=== PATIENT | female | born 1960 | race African-American/Black ===

== ENCOUNTER → 2019-12-23 13:25 | Outpatient (BNV) | payer OTHER, SELFPAY | PROVIDERS: PCP Internal Medicine; Visit Provider Internal Medicine | DX: C90.01 Multiple myeloma in remission (principal); Z92.21 Personal history of antineoplastic chemotherapy; M81.0 Age-related osteoporosis without current pathological fracture | CPT/HCPCS: 99212; 99213; 99214; G2211 ==

== ENCOUNTER 2020-01-21 06:31 | Outpatient (REF) | payer OTHER, SELFPAY ==
[2020-01-21 07:03] LABS: MANUAL DIFF FLAG NO
[2020-01-21 07:07] LABS: Basophils Absolute Auto 0.1 X10*3/uL (0.0-0.2); Basophils Percent Auto 1.7 % (0-2); Eosinophils Absolute Auto 0.2 X10*3/uL (0.0-0.4); Eosinophils Percent Auto 4.7 % (0-4); Hematocrit 35.4 % (37-47); Hemoglobin 11.3 g/dl (12.0-16.0); Imm Gran Abs Auto 0.01 X10*3/uL (0.00-0.03); Imm Gran Pct Auto 0.2 % (0.0-0.4); Immature Retic Fraction 12.5 % (3.0-15.9); Lymphocytes Absolute Auto 1.1 X10*3/uL (1.2-4.9); Lymphocytes Percent Auto 28.4 % (20-40); Mean Corpuscular HGB Conc 31.9 g/dl (31.0-35.0); Mean Corpuscular Hemoglobin 28.5 pg (27.0-33.0); Mean Corpuscular Volume 89.4 fL (80-98); Mean Platelet Volume 9.5 fL (9.4-12.3); Monocytes Absolute Auto 0.5 X10*3/uL (0.1-1.2); Monocytes Percent Auto 13.4 % (2-11); Neutrophils Absolute Auto 2.1 X10*3/uL (2.0-8.3); Neutrophils Percent Auto 51.6 % (45-73); Platelet Count 164 X10*3/uL (160-400); Red Blood Count 3.96 X10*6/uL (4.20-5.50); Red Cell Distribution Width 14.2 % (11.0-16.0); Retic HGB Equivalent 34.3 pg (30.0-35.0); Reticulocyte Percent 1.5 % (0.5-1.8); Reticulocytes Absolute 0.057 X10*6/uL (0.026-0.095)
[2020-01-21 07:31] LABS: Glucose Urine UA NEG (NEG); Leukocyte Esterase Urine NEG (NEG); Nitrite Urine NEG (NEG); Specific Gravity - Urine 1.025 (1.005-1.025); Urine Blood NEG (NEG); Urine Ketones NEG (NEG); Urine Protein NEG (NEG-TRACE)
[2020-01-21 07:34] LABS: Alanine Aminotransferase 16 U/L (0-31); Albumin Level 3.6 g/dL (3.5-5.0); Alkaline Phosphatase 77 U/L (39-117); Anion Gap 11 (12-20); Aspartate Amino Transferase 13 U/L (5-31); Bilirubin Total 0.6 mg/dL (0.0-1.0); Blood Urea Nitrogen 9 mg/dL (9-16); Calcium 8.2 mg/dL (8.4-10.2); Carbon Dioxide 28 mmol/L (22-29); Chloride 110 mmol/L (96-108); Cholesterol 130 mg/dL; Estimated Glomerular Filt Rate > 60; Glucose Random 87 mg/dL (60-115); HDL Cholesterol 61 mg/dL; Iron 41 mcg/dL (30-160); LDL Cholesterol Calculated 59 mg/dl; Percent Iron Saturation 14 % (15-50); Potassium 3.9 mmol/l (3.3-5.1); Sodium 145 mmol/L (135-145); Total Iron Binding Capacity 292 mcg/dL (228-428); Total Protein 6.3 g/dL (6.5-8.0); Triglycerides 52 mg/dL; Unsaturated Iron Binding 251 ug/dL
[2020-01-21 07:34] LABS: Appearance Urine CLEAR; Color Urine YELLOW
[2020-01-21 07:42] LABS: RBC Urine 0 /HPF (0); Renal Epithelial Cells Urine TRACE /LPF; Squamous Epithelial Cell Urine 1+ /LPF; WBC Urine 0 /HPF (0-4)
[2020-01-21 07:54] LABS: Ferritin 103 ng/mL (10-250); Thyroid Stimulating Hormone 1.27 mIU/mL (0.32-4.0)
[2020-01-21 08:34] LABS: Creatinine Urine 130.22 mg/dL; Microalbumin Urine < 5.0 mg/L
[2020-01-21 10:03] LABS: Folate 8.9 ng/mL (> or = 4.0); Vitamin B12 287 pg/mL (200-900)
== END 2020-01-21 06:32 | disposition home or self-care (01) ==
LOC: HO.LAB 06:31
PROVIDERS: Visit Provider Internal Medicine
DX: E11.65 Type 2 diabetes mellitus with hyperglycemia (principal); I10 Essential (primary) hypertension; D64.9 Anemia, unspecified; E78.00 Pure hypercholesterolemia, unspecified
CPT/HCPCS: 36415; 80053; 80061; 81001; 82043; 82607; 82728; 82746; 83540; 84443; 85025; 85045

== ENCOUNTER 2020-07-01 11:07 | Outpatient (REF) | payer OTHER, SELFPAY ==
--- NOTE | ~2020-07-01 | MM_ITS ---
EXAMINATION: MM SCREENING DIGITAL BREAST TOMOSYNTHESIS, BILATERAL CLINICAL INFORMATION: Screening. Asymptomatic. Remote history reduction mammoplasty, 2007. The lifetime risk of breast cancer based on the Tyrer-Cuzick Model is 4%. COMPARISON: Mammography: 04/03/2019, 03/28/2018, 02/15/2017, 01/21/2016, 04/07/2015, 03/05/2014 TECHNIQUE: Digital breast tomosynthesis is performed in both the craniocaudal and mediolateral oblique views along with computer-aided detection (CAD). Synthesized 2D images are generated from the tomosynthesis. Additional exaggerated right CC view is provided. FINDINGS: There are scattered areas of fibroglandular density (ACR BI-RADS breast composition Category b). Parenchymal pattern is similar to prior studies. There is minor bilateral scarring consistent with the reduction mammoplasty. Shifting fibroglandular densities are again noted from year to year. There is no interval mass or architectural abnormality. No abnormal calcifications. No significant changes. MM/MM tomosynthesis screening BI IMPRESSION: No significant changes from prior studies. ASSESSMENT: BI-RADS 2: Benign RECOMMENDATION: Routine annual mammography screening. This patient's information was entered into a reminder system with a target due date for their next mammogram.
== END 2020-07-01 11:08 | disposition home or self-care (01) ==
LOC: HO.MAMMO 11:07
PROVIDERS: PCP Internal Medicine; Visit Provider Internal Medicine
DX: Z12.31 Encounter for screening mammogram for malignant neoplasm of breast (principal)
CPT/HCPCS: 77063; 77067

== ENCOUNTER 2020-10-05 08:00 | Outpatient (REF) | payer OTHER, SELFPAY | END 2020-10-05 08:01 | disposition home or self-care (01) | LOC: HO.LAB 08:00 | PROVIDERS: PCP Internal Medicine; Visit Provider Internal Medicine | DX: Z13.89 Encounter for screening for other disorder (principal) ==

== ENCOUNTER 2021-03-16 06:25 | Outpatient (REF) | payer OTHER, SELFPAY ==
[2021-03-16 06:44] LABS: MANUAL DIFF FLAG NO
[2021-03-16 07:06] LABS: Basophils Percent Auto 0.8 % (0-2); Eosinophils Absolute Auto 0.3 X10*3/uL (0.0-0.4); Eosinophils Percent Auto 6.5 % (0-4); Hematocrit 38.9 % (37.0-47.0); Hemoglobin 12.3 g/dl (12.0-16.0); Imm Gran Abs Auto 0.01 X10*3/uL (0.00-0.03); Imm Gran Pct Auto 0.3 % (0.0-0.4); Immature Retic Fraction 13.8 % (3.0-15.9); Lymphocytes Absolute Auto 0.8 X10*3/uL (1.2-4.9); Lymphocytes Percent Auto 20.1 % (20-40); Mean Corpuscular HGB Conc 31.6 g/dl (31.0-35.0); Mean Corpuscular Hemoglobin 28.5 pg (27.0-33.0); Mean Corpuscular Volume 90.3 fL (80.0-98.0); Mean Platelet Volume 9.4 fL (9.4-12.3); Monocytes Absolute Auto 0.7 X10*3/uL (0.1-1.2); Monocytes Percent Auto 17.2 % (2-11); Neutrophils Absolute Auto 2.1 x10*3/uL (2.0-8.3); Neutrophils Percent Auto 55.1 % (45-73); Platelet Count 223 X10*3/uL (160-400); Red Blood Count 4.31 X10*6/uL (4.20-5.50); Red Cell Distribution Width 13.8 % (11.0-16.0); Retic HGB Equivalent 33.4 pg (30.0-35.0); Reticulocytes Absolute 0.043 X10*6/uL (0.026-0.095); White Blood Count 3.8 X10*3/uL (4.8-10.8)
[2021-03-16 07:29] LABS: Alanine Aminotransferase 35 U/L (0-31); Albumin Level 3.8 g/dL (3.5-5.0); Alkaline Phosphatase 83 U/L (39-117); Anion Gap 10 (12-20); Aspartate Amino Transferase 21 U/L (5-31); Bilirubin Total 0.5 mg/dL (0.0-1.0); Blood Urea Nitrogen 11 mg/dL (9-16); Calcium 9.3 mg/dL (8.4-10.2); Carbon Dioxide 29 mmol/L (22-29); Chloride 110 mmol/L (96-108); Cholesterol 148 mg/dL; Estimated Glomerular Filt Rate > 60; Glucose Random 90 mg/dL (60-115); HDL Cholesterol 69 mg/dL; Iron 56 mcg/dL (30-160); LDL Cholesterol Calculated 67 mg/dl; Percent Iron Saturation 16 % (15-50); Potassium 4.4 mmol/L (3.3-5.1); Sodium 145 mmol/L (135-145); Total Iron Binding Capacity 345 mcg/dL (228-428); Total Protein 7.1 g/dL (6.5-8.0); Triglycerides 60 mg/dL; Unsaturated Iron Binding 289 ug/dL
[2021-03-16 07:51] LABS: Ferritin 88 ng/mL (10-250); Free T4 (Free Thyroxine) 0.89 ng/dL (0.71-1.85); Thyroid Stimulating Hormone 1.25 uIU/mL (0.32-4.0); Vitamin D 25-OH Total 15.4 ng/mL (>30)
[2021-03-16 08:05] LABS: Creatinine Urine 113.65 mg/dL; Microalbum/Creatinine Ratio Ur 6.1 ug/mg cr
[2021-03-16 08:11] LABS: Folate 13.1 ng/mL (> or = 4.0); Vitamin B12 337 pg/mL (200-900)
== END 2021-03-16 06:26 | disposition home or self-care (01) ==
LOC: HO.LAB 06:25
PROVIDERS: PCP Internal Medicine; Visit Provider Internal Medicine
DX: E11.65 Type 2 diabetes mellitus with hyperglycemia (principal); E78.00 Pure hypercholesterolemia, unspecified; D64.9 Anemia, unspecified; M81.8 Other osteoporosis without current pathological fracture
CPT/HCPCS: 36415; 80053; 80061; 82043; 82306; 82607; 82728; 82746; 83540; 84439; 84443; 85025; 85045

== ENCOUNTER 2021-07-06 08:45 | Outpatient (REF) | payer OTHER, SELFPAY ==
--- NOTE | ~2021-07-06 | MM_ITS ---
EXAMINATION: MM SCREENING DIGITAL BREAST TOMOSYNTHESIS, BILATERAL CLINICAL INFORMATION: Screening. Asymptomatic. The lifetime risk of breast cancer based on the Tyrer-Cuzick Model is 8%. COMPARISON: Mammography: 07/01/2020, 04/03/2019, 03/28/2018 TECHNIQUE: Digital breast tomosynthesis is performed in both the craniocaudal and mediolateral oblique views along with computer-aided detection (CAD). Synthesized 2D images are generated from the tomosynthesis. Additional right exaggerated CC and left MLO views are provided. FINDINGS: There are scattered areas of fibroglandular density (ACR BI-RADS breast composition Category b). There are no significant masses, abnormal calcifications, or other abnormalities. There is biopsy clip marker again seen posterior central 8:30 right breast. There are scattered bilateral vascular and benign round and some coarse calcifications. The axilla are unremarkable. No significant changes from prior studies. MM/MM tomosynthesis screening BI IMPRESSION: No mammographic evidence of malignancy. ASSESSMENT: BI-RADS 2: Benign RECOMMENDATION: Routine annual mammography screening. This patient's information was entered into a reminder system with a target due date for their next mammogram.
== END 2021-07-06 08:46 | disposition home or self-care (01) ==
LOC: HO.MAMMO 08:45
PROVIDERS: PCP Internal Medicine; Visit Provider Internal Medicine
DX: Z12.31 Encounter for screening mammogram for malignant neoplasm of breast (principal)
CPT/HCPCS: 77063; 77067

== ENCOUNTER 2021-09-21 08:35 | Outpatient (REF) | payer OTHER, SELFPAY ==
--- NOTE | ~2021-09-21 | MM_ITS ---
EXAMINATION: BONE DENSITOMETRY CLINICAL INDICATION: Age-related osteoporosis without current pathological fracture. COMPARISON: Previous BD dated 09/04/2019 and baseline BD dated 03/24/2014. TECHNIQUE: Using a [employer] DXA System (software version: 13.1) manufactured by [employer], dual-energy x-ray absorptiometry was performed of the lumbar spine and left hip. The images are of good technical quality. Summary results are attached. FINDINGS: AP SPINE L1-L4: Current: BMD 0.859 g/cm2, Z-score -1.9, T-score -2.7, osteoporosis, 2.8% increase from previous, 13.3% increase from baseline (<5% change is not significant). Prior: BMD 0.836 g/cm2. Baseline: BMD 0.758 g/cm2. LEFT FEMUR, NECK: Current: BMD 0.667 g/cm2, Z-score -2.1, T-score -2.7, osteoporosis. Prior: BMD 0.706 g/cm2. Baseline: BMD 0.632 g/cm2. LEFT FEMUR, TOTAL: Current: BMD 0.690 g/cm2, Z-score -2.4, T-score -2.5, osteoporosis, 1.4% decrease from previous, 8.3% increase from baseline (<5% change is not significant). Prior: BMD 0.700 g/cm2. Baseline: BMD 0.637 g/cm2. IDENTIFIED RISK FACTORS: Early menopause, secondary osteoporosis, height loss, low calcium intake, osteoporosis, glucocorticoids (chronic). HISTORY OF FRACTURE: None listed. MEDICATIONS: Calcium supplements or multivitamin, vitamin D. MM/XR DEXA axial skeleton IMPRESSION: 1. DIAGNOSIS: Osteoporosis based on the lowest T-score value of -2.7 in the femoral neck and lumbar spine applying World Health Organization criteria. 2. 10-YEAR FRACTURE RISK PREDICTION, FRAX: According to the guidelines, FRAX calculation should only be performed on patients in the osteopenia bone density category. Therefore, FRAX was not performed on this patient. 3. Treatment Recommendations: NOF guidelines recommend consideration for treatment in postmenopausal women and men age 50 and older presenting with the following: -A hip or vertebral (clinical or morphometric) fracture. -T-score less than or equal to -2.5 at the femoral neck or spine after appropriate evaluation to exclude secondary causes. -Low bone mass at the hip or spine and a 10-year fracture probability by FRAX of greater than or equal to 3% for hip fracture or greater than or equal to 20% for major osteoporotic fracture based on the [place] adapted WHO algorithm. 4. Other Recommendations: All treatment decisions require clinical judgment and consideration of individual patient factors, including patient preferences, comorbidities, previous drug use, risk factors not captured in the FRAX model (e.g. frailty, falls, vitamin D deficiency, increased bone turnover, interval significant decline in bone density) and possible under or overestimation of fracture risk by FRAX. Additional medical evaluation for secondary cause of low bone mineral density may be appropriate. FUTURE SCAN RECOMMENDATION: People with diagnosed cases of osteoporosis or at high risk for fracture should have regular bone mineral density tests. For patients eligible for Medicare, routine testing is allowed once every 2 years. The testing frequency can be increased to one year for patients who have rapidly progressing disease, those who are receiving or discontinuing medical therapy to restore bone mass, or have additional risk factors.
== END 2021-09-21 08:36 | disposition home or self-care (01) ==
LOC: HO.MAMMO 08:35
PROVIDERS: PCP Internal Medicine; Visit Provider Internal Medicine
DX: M81.8 Other osteoporosis without current pathological fracture (principal); Z79.52 Long term (current) use of systemic steroids
CPT/HCPCS: 77080

== ENCOUNTER 2022-01-10 13:54 | Outpatient (REF) | payer OTHER, SELFPAY ==
--- NOTE | ~2022-01-10 | CT_ITS ---
EXAMINATION: CT LUMBAR SPINE WITHOUT CONTRAST CLINICAL INFORMATION: Back pain. Osteoporosis and reported multiple myeloma. COMPARISON: None TECHNIQUE: Multidetector helical imaging acquired in the axial plane with generation of reformatted acquisitions. This CT examination was performed using dose optimization techniques as appropriate, variously including the following: *Automated exposure control *Adjustment of mA and/or kV according to patient size (this includes techniques or standardized protocols for targeted exams where dose is matched to indication/reason for exam; i.e. extremities or head) *Use of iterative reconstruction technique DLP; 297.4 mGy-cm FINDINGS: There is transitional anatomy with small segmented transverse processes at what is considered the L1 level. The S1 vertebra is lumbarized with a developed S1-S2 disc space. No suspicious lytic or blastic osseous lesions are seen. Extensive bony demineralization evident. There is hypertrophic facet arthropathy at various levels, most severe on the right side at the L5-S1 level with vacuum phenomenon. Mild multilevel endplate spurring noted. There are no compression fractures. No subluxations evident. No significant disc space narrowing is seen. There is a punctate nonobstructing calculus in the right kidney. The paraspinal soft tissues are unremarkable. Sigmoid colonic diverticulosis noted. There is vacuum phenomenon and mild degenerative changes of the sacroiliac joints bilaterally. L1-L2: No significant disc pathology, central canal stenosis, or foraminal narrowing. L2-L3: Very mild disc bulge without central canal stenosis or foraminal encroachment. L3-L4: Mild endplate spurring and disc bulge without central canal stenosis or foraminal encroachment. L4-L5: Generalized disc bulge and thickening of the ligamentum flavum with mild facet arthropathy contributing to mild central canal stenosis and mild bilateral foraminal encroachment. L5-S1: Mild diffuse disc bulge and severe right-sided facet arthropathy with thickening of the ligamentum flavum contributing to moderate central canal stenosis and mild bilateral foraminal narrowing. S1-S2: No significant disc pathology or central canal stenosis. Mild facet arthrosis. Patent foramina. CT/CT lumbar spine wo IV con IMPRESSION: Transitional anatomy with segmented transverse processes and lumbarization of the S1 vertebra with a developed S1-S2 disc space. If future surgery or a percutaneous procedure is contemplated, recommend correlation with plain film evaluation in order to ensure correct enumeration. No suspicious lytic or blastic osseous lesions. Diffuse bony demineralization. No compression fractures. Multilevel spondylitic changes, most significant at the L5-S1 level with severe right-sided facet arthropathy and a disc bulge in conjunction with thickening of the ligamentum flavum. Findings result in moderate central canal stenosis and mild foraminal narrowing. Mild central canal stenosis and disc bulge at the L4-L5 level with mild bilateral foraminal narrowing. Sigmoid colonic diverticulosis.
--- NOTE | ~2022-01-10 | CT_ITS ---
EXAMINATION: CT HIP WITHOUT CONTRAST, RIGHT CLINICAL INFORMATION: Osteoporosis. Multiple myeloma. COMPARISON: None TECHNIQUE: Axial images through the right hip without contrast. Sagittal and coronal reconstructions on the technologist workstation were performed. This CT examination was performed using dose optimization techniques as appropriate, variously including the following: *Automated exposure control *Adjustment of mA and/or kV according to patient size (this includes techniques or standardized protocols for targeted exams where dose is matched to indication/reason for exam; i.e. extremities or head) *Use of iterative reconstruction technique DLP: 130 mGy-cm FINDINGS: There is an old healed fracture of the right inferior pubic ramus. No acute fracture or dislocation is seen. No lytic bone lesion is seen. The right hip joint is normal appearing. There is no evidence of appreciable arthritis or joint effusion. There is evidence of atherosclerotic disease. There is diverticulosis of the colon. No right groin hernia. CT/CT hip RT wo IV con IMPRESSION: Old healed right inferior pubic ramus fracture. No acute fracture or lytic bone lesion. Atherosclerotic disease. Diverticulosis.
== END 2022-01-10 13:55 | disposition home or self-care (01) ==
LOC: HO.CT 13:54
PROVIDERS: PCP Internal Medicine; Visit Provider Internal Medicine
DX: C90.00 Multiple myeloma not having achieved remission (principal); M54.50 Low back pain, unspecified; M25.551 Pain in right hip
CPT/HCPCS: 72131; 73700

== ENCOUNTER 2022-03-03 08:56 | Outpatient (REF) | payer OTHER, SELFPAY ==
[2022-03-03 09:11] LABS: MANUAL DIFF FLAG NO
[2022-03-03 10:04] LABS: Basophils Percent Auto 0.2 % (0-2); Eosinophils Absolute Auto 0.2 X10*3/uL (0.0-0.4); Eosinophils Percent Auto 3.7 % (0-4); Hematocrit 38.8 % (37.0-47.0); Hemoglobin 12.6 g/dl (12.0-16.0); Imm Gran Abs Auto 0.03 X10*3/uL (0.00-0.03); Imm Gran Pct Auto 0.5 % (0.0-0.4); Lymphocytes Percent Auto 17.8 % (20-40); Mean Corpuscular HGB Conc 32.5 g/dl (31.0-35.0); Mean Corpuscular Hemoglobin 28.3 pg (27.0-33.0); Mean Corpuscular Volume 87.2 fL (80.0-98.0); Mean Platelet Volume 10.4 fL (9.4-12.3); Monocytes Absolute Auto 0.9 X10*3/uL (0.1-1.2); Monocytes Percent Auto 15.7 % (2-11); Neutrophils Absolute Auto 3.5 x10*3/uL (2.0-8.3); Neutrophils Percent Auto 62.1 % (45-73); Platelet Count 276 X10*3/uL (160-400); Red Blood Count 4.45 X10*6/uL (4.20-5.50); Red Cell Distribution Width 13.7 % (11.0-16.0); White Blood Count 5.6 X10*3/uL (4.8-10.8)
[2022-03-03 10:12] LABS: Estimated Average Glucose 103 mg/dL; Hemoglobin A1c % 5.2 %
[2022-03-03 10:29] LABS: Creatinine Urine 232.68 mg/dL; Microalbum/Creatinine Ratio Ur 8.1 ug/mg cr
[2022-03-03 14:32] LABS: Alanine Aminotransferase 24 U/L (0-31); Albumin Level 3.8 g/dL (3.5-5.0); Alkaline Phosphatase 79 U/L (39-117); Anion Gap 14 (12-20); Aspartate Amino Transferase 14 U/L (5-31); Bilirubin Total 0.7 mg/dL (0.0-1.0); Blood Urea Nitrogen 9 mg/dL (9-16); Calcium 8.6 mg/dL (8.4-10.2); Carbon Dioxide 25 mmol/L (22-29); Chloride 105 mmol/L (96-108); Cholesterol 143 mg/dL; Estimated Glomerular Filt Rate > 60; Glucose Random 95 mg/dL (60-115); HDL Cholesterol 46 mg/dL; LDL Cholesterol Calculated 80 mg/dl; Potassium 3.5 mmol/L (3.3-5.1); Sodium 140 mmol/L (135-145); Thyroid Stimulating Hormone 0.43 uIU/mL (0.32-4.0); Triglycerides 86 mg/dL
[2022-03-03 14:53] LABS: Vitamin B12 487 pg/mL (200-900)
[2022-03-03 14:56] LABS: Free T4 (Free Thyroxine) 1.36 ng/dL (0.71-1.85); Vitamin D 25-OH Total 35.4 ng/mL (>30)
[2022-03-03 15:08] LABS: Folate 10.7 ng/mL (> or = 4.0)
== END 2022-03-03 08:57 | disposition home or self-care (01) ==
LOC: HO.LAB 08:56
PROVIDERS: PCP Internal Medicine; Visit Provider Internal Medicine
DX: I10 Essential (primary) hypertension (principal); E78.00 Pure hypercholesterolemia, unspecified; E11.65 Type 2 diabetes mellitus with hyperglycemia
CPT/HCPCS: 36415; 80053; 80061; 82043; 82306; 82607; 82746; 83036; 84439; 84443; 85025

== ENCOUNTER 2022-08-01 08:51 | Outpatient (REF) | payer OTHER, SELFPAY ==
--- NOTE | ~2022-08-01 | MM_ITS ---
EXAMINATION: MM SCREENING DIGITAL BREAST TOMOSYNTHESIS, BILATERAL CLINICAL INFORMATION: Screening. Asymptomatic. The lifetime risk of breast cancer based on the Tyrer-Cuzick Model is 7%. COMPARISON: Mammography: 07/06/2021, 07/03/2020, 04/03/2019, 03/28/2018 TECHNIQUE: Digital breast tomosynthesis is performed in both the craniocaudal and mediolateral oblique views along with computer-aided detection (CAD). Synthesized 2D images are generated from the tomosynthesis. FINDINGS: There are scattered areas of fibroglandular density (ACR BI-RADS breast composition Category b). There are no significant masses, abnormal calcifications, or other abnormalities. No architectural abnormality or developing density or significant change from prior studies. Biopsy clip marker again noted posterior central 8:30 right breast. The axilla and skin contours are unremarkable. MM/MM tomosynthesis screening BI IMPRESSION: No mammographic evidence of malignancy. ASSESSMENT: BI-RADS 1: Negative RECOMMENDATION: Routine annual mammography screening. This patient's information was entered into a reminder system with a target due date for their next mammogram.
== END 2022-08-01 08:52 | disposition home or self-care (01) ==
LOC: HO.MAMMO 08:51
PROVIDERS: PCP Internal Medicine; Visit Provider Internal Medicine
DX: Z12.31 Encounter for screening mammogram for malignant neoplasm of breast (principal)
CPT/HCPCS: 77063; 77067

== ENCOUNTER 2022-08-29 10:00 | Outpatient (RCR) | payer OTHER, SELFPAY ==
--- NOTE | 2022-07-25 13:00 | MHC.PT.EP ---
[facility] [place] Office [place] Office [place] Office [address] Regina Soliman [address] [phone] F: [phone] F: [phone] F: [phone] F: [phone] Physical Therapy Plan of Care Date of Evaluation: Date of Surgery: N/A Diagnosis: hip/lower back pain Assessment: Pt is a pleasant and motivated 61yo F with PMH including multiple myeloma who presents to PT with R hip and back pain for ~1 year. She presents to PT with current impairments in pain, decreased lumbar ROM, decreased core stabilization, decreased hip/glute strength, and impaired gait. She is TTP with reproduction of symptoms with palpation to R lumbar PS, QL, and lateral R hip. She is limited functionally by prolonged sitting, prolonged standing, bending, prolonged walking, and stair navigation. She is an excellent candidate for skilled PT in order to address current impairments to facilitate return to PLOF. She is recommended to be seen 2x/week for 4 weeks and will be reassessed at that time. Frequency and Duration: The patient will be seen 2x/week for 4 weeks Short Term Goals: Pt will be I with HEP to promote self management of symptoms Pt will improve R glute med strength to at least 4-/5 Mcc Goals: Pt will tolerate standing and walking > 30 min with minimal to no discomfort Pt will ascend/descend stairs with reciprocal pattern consistently with minimal to no discomfort Pt will demonstrate improvements in function as evidenced by statistically significant improvement in LEFI outcome measure Treatment Plan: Modalities to reduce pain, spasms and effusion. Manual therapy to restore motion and function. Therapeutic exercise to improve strength and flexibility. Neuromuscular re-education for posture and balance. Therapeutic activities to return to functional activities of daily living. Electronically signed by: Nazia Boggs, PT, DPT Please sign and return to therapist. Thank you for your referral.
--- NOTE | 2022-10-10 14:27 | MHC.PT.DC ---
[facility] [place] Office [place] Office [place] Office [address] Regina Soliman [address] [phone] F: [phone] F: [phone] F: [phone] F: [phone] Physical Therapy Discharge Report Diagnosis: hip/lower back pain Date of Surgery: N/A Date of Evaluation: 07/25/22 Date of Discharge: 10/10/22 Treatments to Date: 9 Cancellations to Date: 3 No Shows to Date: Discharge Status: Patient Elected to Stop Discharge Summary: Pt was seen for PT from 07/25/22-08/29/22. Her last attended appointment was 08/29/22. 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 Pt is being D/C from skilled PT per her request. Pt current level of function unknown at this time. Electronically signed by: Nazia Boggs, PT, DPT Please sign and return to therapist. Thank you for your referral.
== END 2022-10-10 14:27 | disposition home or self-care (01) ==
LOC: HO.PT 10:00
PROVIDERS: PCP Internal Medicine; Visit Provider Internal Medicine
DX: M54.50 Low back pain, unspecified (principal); M25.551 Pain in right hip
CPT/HCPCS: 97110; 97140; 97162

== ENCOUNTER 2022-09-15 11:18 | Outpatient (REF) | payer OTHER, SELFPAY ==
[2022-09-15 11:29] LABS: MANUAL DIFF FLAG NO
[2022-09-15 11:59] LABS: Basophils Percent Auto 0.6 % (0-2); Eosinophils Absolute Auto 0.3 X10*3/uL (0.0-0.4); Eosinophils Percent Auto 8.3 % (0-4); Hematocrit 39.1 % (37.0-47.0); Hemoglobin 12.6 g/dl (12.0-16.0); Imm Gran Abs Auto 0.01 X10*3/uL (0.00-0.03); Imm Gran Pct Auto 0.3 % (0.0-0.4); Lymphocytes Absolute Auto 0.8 X10*3/uL (1.2-4.9); Lymphocytes Percent Auto 26.6 % (20-40); Mean Corpuscular HGB Conc 32.2 g/dl (31.0-35.0); Mean Corpuscular Hemoglobin 29.3 pg (27.0-33.0); Mean Corpuscular Volume 90.9 fL (80.0-98.0); Mean Platelet Volume 10.1 fL (9.4-12.3); Monocytes Absolute Auto 0.3 X10*3/uL (0.1-1.2); Monocytes Percent Auto 9.6 % (2-11); Neutrophils Absolute Auto 1.7 x10*3/uL (2.0-8.3); Neutrophils Percent Auto 54.6 % (45-73); Platelet Count 238 X10*3/uL (160-400); Red Cell Distribution Width 13.9 % (11.0-16.0); White Blood Count 3.1 X10*3/uL (4.8-10.8)
[2022-09-15 12:38] LABS: Appearance Urine Clear; Color Urine Yellow; Glucose Urine UA Negative (Negative); Leukocyte Esterase Urine Trace (Negative); Nitrite Urine Negative (Negative); PH 7.5 (5.0-9.0); UMIC TRIGGER UA YES; Urine Blood Negative (Negative); Urine Ketones Negative (Negative); Urine Protein Negative (Neg-Trace)
[2022-09-15 12:42] LABS: Bacteria Urine None Seen (None Seen); Hyaline Casts Urine 0-2 /LPF (0-2); RBC Urine 0-2 /HPF (0-2); Squamous Epithelial Cell Urine 0-2 /HPF (0-2); WBC Urine 0-5 /HPF (0-5)
[2022-09-15 12:46] LABS: Alanine Aminotransferase 42 U/L (0-31); Albumin Level 3.8 g/dL (3.5-5.0); Alkaline Phosphatase 72 U/L (39-117); Anion Gap 12 (12-20); Aspartate Amino Transferase 27 U/L (5-31); Bilirubin Total 0.5 mg/dL (0.0-1.0); Blood Urea Nitrogen 12 mg/dL (9-16); Calcium 9.3 mg/dL (8.4-10.2); Carbon Dioxide 28 mmol/L (22-29); Chloride 108 mmol/L (96-108); Estimated Glomerular Filt Rate > 60; Glucose Random 81 mg/dL (60-115); Magnesium 1.8 mg/dL (1.6-2.6); Potassium 4.4 mmol/L (3.3-5.1); Sodium 144 mmol/L (135-145); Total Protein 7.1 g/dL (6.5-8.0)
[2022-09-15 12:53] LABS: Free T4 (Free Thyroxine) 0.89 ng/dL (0.71-1.85); Thyroid Stimulating Hormone 0.87 uIU/mL (0.32-4.0)
== END 2022-09-15 11:19 | disposition home or self-care (01) ==
LOC: HO.LAB 11:18
PROVIDERS: PCP Internal Medicine; Visit Provider Internal Medicine
DX: E11.65 Type 2 diabetes mellitus with hyperglycemia (principal)
CPT/HCPCS: 36415; 80053; 81001; 83735; 84439; 84443; 85025

== ENCOUNTER 2023-03-20 09:31 | Outpatient (AMB) | payer OTHER, SELFPAY ==
[2023-03-20 09:32] VITALS: BP 130/72; PULSE 93; O2SAT 99; BMI 27.6
--- NOTE | 2023-03-20 09:32 | A.OFFPC_ITS ---
Vital Signs 03/20/23 09:32 Height 4 ft 8 in Weight 123 lb 0.6 oz BMI 27.6 BP 130/72 Blood Pressure Location Lt brachial Position Sitting Pulse 93 Pulse Source Pulse Oximeter Pulse Oximetry (%) 99 Oxygen Delivery Method Room Air Intake Visit Reasons: DM Occupancy Specialist Required: No Allergies No Known Allergies [No Known Allergies*] Allergy (Verified 03/20/23 09:32) Medication List - Last Reconciled 03/20/23 by Samira Sommer MD aspirin 81 mg PO DAILY [Dandy-600 With Vitamin D 500 mg PO DAILY] cholestyramine-aspartame 4 gram (Prevalite) 4 grams PO BID denosumab (Xgeva) 120 mg subcut q 3 months; dicyclomine 20 mg PO QID ferrous sulfate 325 mg PO DAILY lenalidomide (Revlimid) 10 mg PO DAILY simvastatin 40 mg PO BEDTIME Tobacco use date assessed: 03/20/23 HPI DM HPI Details 62-year-old overweight female with a his tory of controlled diabetes mellitus hypertension hypercholesterolemia history of multiple myeloma and lumbar spondylosis coming in for follow-up. Last seen in August 2022. Patient's colonoscopy is up-to-date mammograms up-to-date bone density is up-to-date. Patient follows up with hematology oncology seen in December 2022 status post chemotherapy April 2015 to July 2015 monthly Jose Guadalupe had stem-cell collection August 2015 on remission and on Revlim[facility] Medical History Anemia Common bile duct stone History of rib fracture Hypercholesterolemia Hypertension Irritable bowel syndrome Multiple myeloma Osteoporosis Rash T8 vertebral fracture Type 2 diabetes mellitus with hyperglycemia Surgical History History of section History of cholecystectomy History of ERCP History of surgery Family History Mother Anemia CVD (cardiovascular disease) Hypertension CHF (congestive heart failure) Sister Breast cancer Father Medical history unknown Maternal Grandmother Lung cancer Sister No problems noted. Social History Household Members: Children Housing: House Alcohol intake: never Patient Tobacco Use Status: Never used Tobacco e-Cigarette/Vaping Use: Never Used Second Hand Smoke Exposure: No service: No Current occupational status: employed Cognitive needs: No Hearing needs: No Vision needs: Yes Questionnaire PHQ-9 Over the last 2 weeks, how often have you been bothered by any of the following problems? 1. Little interest or pleasure in doing things: not at all 2. Feeling down, depressed, or hopeless: not at all 3. Trouble falling or staying asleep, or sleeping too much: not at all 4. Feeling tired or having little energy: not at all 5. Poor appetite or overeating: not at all 6. Feeling bad about yourself - or that you are a failure or have let yourself or your family down: not at all 7. Trouble concentrating on things, such as reading the newspaper or watching television: not at all 8. Moving or speaking so slowly that other people could have noticed. Or the opposite - being so fidgety or restless that you have been moving around a lot more than usual: not at all 9. Thoughts that you would be better off or of hurting yourself in some way: not at all Total score: 0 Depression Screening Interpretation: Negative Depression Screening Done: Yes Source: Developed by Drs. Quinn Wilcox, Kandace Flanagan, Stefano Woods and colleagues, with an educational tory from [employer] (formerly [employer]). Thrive Questionnaire Date Thrive assessed: 09/15/22 AUDIT C Alcohol Use Questionnaire (AUDIT-C) 1. How often do you have a drink containing alcohol?: Never 3. How often do you have six or more drinks on one occasion?: Never Total Score: 0 Score Reviewed/Action Taken: No ALAYNA-7 AMB Questionnaire ALAYNA-7 Date ALAYNA - 7 assessed: 03/20/23 Feeling nervous, anxious, or on edge: 0 = Not at all Not being able to stop or control worryin = Not at all Worrying too much about different things: 0 = Not at all Trouble relaxin = Not at all Being so restless that it is hard to sit still: 0 = Not at all Becoming easily annoyed or irritable: 0 = Not at all Feeling afraid as if something awful might happen: 0 = Not at all Total ALAYNA-7 score (0-4 normal; 5-9 mild; 10-14 moderate; 15-21 severe): 0 Source: Developed by Drs. Quinn Wilcox, Kandace Flanagan, Stefano Woods and colleagues, with an educational tory from [employer] (formerly [employer]). Physical exam (Primary Care) Vital Signs: Last Vital Signs Pulse 93 03/20/23 09:32 BP 130/72 03/20/23 09:32 Pulse Ox 99 03/20/23 09:32 Oxygen Delivery Method Room Air 03/20/23 09:32 BMI result Body Mass Index 27.6 Tobacco/Smoking Status: Tobacco use Status Tobacco use date assessed 03/20/23 03/20/23 09:33 Patient Tobacco Use Status Never used Tobacco 03/20/23 09:33 e-Cigarette/Vaping Use Never Used 03/20/23 09:33 PHQ-9: PHQ-9 Score PHQ-9: Total score 0 03/20/23 09:41 Depression Screening Interpretation: Negative Thrive Assessment: Date of Thrive Assessment Date Thrive assessed 09/15/22 03/20/23 09:33 Const General: alert; No acute distress Eyes Conjunctivae: conjunctivae normal Resp Auscultation: clear to auscultation bilaterally Cardio Rate: regular rate Rhythm: regular rhythm GI Inspection: Yes normal to inspection Extrem General: Yes normal to inspection and No edema Results AMB Hemoglobin A1c AMB Hemoglobin A1c 5.4 % Last Edit by LEILA Price on 03/20/23 09:46 Assessment and Plan Assessment & Plan (1) Type 2 diabetes mellitus with hyperglycemia: Code(s): E11.65 - Type 2 diabetes mellitus with hyperglycemia Qualifiers: 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 Hemoglobin A1c goal of less than 6.5 patient diet controlled (2) Hypertension: Code(s): I10 - Essential (primary) hypertension Qualifiers: Hypertension type: essential hypertension Qualified Code(s): I10 - Essential (primary) hypertension Plan: Continue with blood pressure medication. Decrease salt intake and exercise under control no medication (3) Hypercholesterolemia: Code(s): E78.00 - Pure hypercholesterolemia, unspecified Plan: Avoid fried foods, chicken skin, eggs, butter margarine, pastries and meat. Be it pork or beef they have a lot of cholesterol LDL goal of less than 100 and triglyceride of less than 150. Will need blood work (4) Multiple myeloma: Code(s): C90.00 - Multiple myeloma not having achieved remission Qualifiers: Multiple myeloma remission status: in remission Qualified Code(s): C90.01 - Multiple myeloma in remission Plan: Continue to follow-up with Hematology-Oncology on remission (5) Eczema: Code(s): L30.9 - Dermatitis, unspecified (6) Peripheral vascular disease: Code(s): I73.9 - Peripheral vascular disease, unspecified Orders: Orders AMB Hemoglobin A1c Today E11.65 - Type 2 diabetes mellitus with hyperglycemia Free T4 (Free Thyroxine) Today E11.65 - Type 2 diabetes mellitus with hyperglycemia Thyroid Stimulating Hormone Today E11.65 - Type 2 diabetes mellitus with hyperglycemia Lipid Panel Today E11.65 - Type 2 diabetes mellitus with hyperglycemia, E78.00 - Pure hypercholesterolemia, unspecified Vitamin B12 and Folate Today E11.65 - Type 2 diabetes mellitus with hyperglycemia Vitamin D 25-OH Total Today E11.65 - Type 2 diabetes mellitus with hyperglycemia Creatinine Urine Today E11.65 - Type 2 diabetes mellitus with hyperglycemia Complete Blood Count Auto Diff Today E11.65 - Type 2 diabetes mellitus with hyperglycemia Comprehensive Met. 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
== END 2023-03-20 10:01 | disposition home or self-care (01) ==
PROVIDERS: PCP Internal Medicine; Visit Provider Internal Medicine
DX: E11.65 Type 2 diabetes mellitus with hyperglycemia (principal); C90.01 Multiple myeloma in remission; I73.9 Peripheral vascular disease, unspecified; I10 Essential (primary) hypertension; E78.00 Pure hypercholesterolemia, unspecified; L30.9 Dermatitis, unspecified
CPT/HCPCS: 83036; 99214

== ENCOUNTER 2023-04-24 12:10 | Outpatient (REF) | payer OTHER, SELFPAY | END 2023-04-24 12:11 | disposition home or self-care (01) | LOC: HO.LAB 12:10 | PROVIDERS: PCP Internal Medicine; Visit Provider Internal Medicine | DX: Z13.89 Encounter for screening for other disorder (principal) ==

== ENCOUNTER 2023-07-10 09:28 | Outpatient (AMB) | payer OTHER, SELFPAY ==
--- NOTE | 2023-07-10 09:33 | MHC.PC.OV ---
Vital Signs 07/10/23 09:34 Height 4 ft 8 in Weight 124 lb BMI 27.8 BP 130/80 Blood Pressure Location Lt brachial Position Sitting Pulse 78 Pulse Source Pulse Oximeter Pulse Oximetry (%) 97 Oxygen Delivery Method Room Air Intake Visit Reasons: DM, PVD Allergies No Known Allergies [No Known Allergies*] Allergy (Verified 07/10/23 09:34) Medication List - Last Reconciled 07/10/23 by Samira Sommer MD aspirin 81 mg PO DAILY betamethasone, augmented 0.05 % (Diprolene (augmented)) 1 appl topical BID PRN [Dandy-600 With Vitamin D 500 mg PO DAILY] cholestyramine-aspartame 4 gram (Prevalite) 4 grams PO BID denosumab (Xgeva) 120 mg subcut q 3 months; dicyclomine 20 mg PO QID ferrous sulfate 325 mg PO DAILY lenalidomide (Revlimid) 10 mg PO DAILY simvastatin 40 mg PO BEDTIME Tobacco use date assessed: 03/20/23 Dental Screening Dental Screen Date: 07/10/23 Did you have a dental visit in the last 12 months?: Yes Did you have a dental problem in the last 6 months where you did not have access to dental care?: No Was dental information given to patient?: Patient has dentist HPI DM, PVD HPI Details 62-year-old overweight female with controlled diabetes mellitus hypertension hypercholesterolemia has a history of multiple myeloma coming in for follow-up. Last seen in March 2023. Patient's colonoscopy is up-to-date January 2016 mammogram is up-to-date July 2022 bone density September 2021. Patient has seen eye and LASIK in May 2023 does have vitreous floaters no retinopathy glucometer early cataract. Patient has followed up with Hematology-Oncology April 2023 for the multiple myeloma in remission had chemotherapy April 2015 to July 2015 on Zometa has had stem cell collection presently on Revlimid and denosumab [facility] Medical History Anemia Common bile duct stone History of rib fracture Hypercholesterolemia Hypertension Irritable bowel syndrome Multiple myeloma Osteoporosis Rash T8 vertebral fracture Type 2 diabetes mellitus with hyperglycemia Surgical History History of section History of cholecystectomy History of ERCP History of surgery Family History Mother Anemia CVD (cardiovascular disease) Hypertension CHF (congestive heart failure) Sister Breast cancer Father Medical history unknown Maternal Grandmother Lung cancer Sister No problems noted. Social History Household Members: Children Housing: House Alcohol intake: never Patient Tobacco Use Status: Never used Tobacco e-Cigarette/Vaping Use: Never Used Second Hand Smoke Exposure: No service: No Current occupational status: employed Cognitive needs: No Hearing needs: No Vision needs: Yes Questionnaire PHQ-9 Over the last 2 weeks, how often have you been bothered by any of the following problems? 1. Little interest or pleasure in doing things: not at all 2. Feeling down, depressed, or hopeless: not at all 3. Trouble falling or staying asleep, or sleeping too much: not at all 4. Feeling tired or having little energy: not at all 5. Poor appetite or overeating: not at all 6. Feeling bad about yourself - or that you are a failure or have let yourself or your family down: not at all 7. Trouble concentrating on things, such as reading the newspaper or watching television: not at all 8. Moving or speaking so slowly that other people could have noticed. Or the opposite - being so fidgety or restless that you have been moving around a lot more than usual: not at all 9. Thoughts that you would be better off or of hurting yourself in some way: not at all Total score: 0 Depression Screening Interpretation: Negative Depression Screening Done: Yes Source: Developed by Drs. Quinn Wilcox, Kandace Flanagan, Stefano Woods and colleagues, with an educational tory from [employer]. Thrive Questionnaire Date Thrive assessed: 07/10/23 I am a: Patient What is your living situation today?: I have a steady place to live Within the past 12 months, did the food you bought not last and you didn't have the money to get more?: Never true Within the past 12 months, did you worry whether your food would run out before you got money to buy more?: Never true Do you have trouble paying for medicines?: No Do you have trouble getting transportation to medical appointments?: No Do you have trouble paying your heating and electricity bill?: No Do you have trouble taking care of your child, family member or friend?: No Do you have trouble with day-to-day activities such as bathing, preparing meals, shopping, managing finances, etc.?: No Are you currently unemployed and looking for a job?: No Are you interested in more education?: No Currently or been in a relationship where the following occur: no concerns reported THRIVE Score: 0 AUDIT C Alcohol Use Questionnaire (AUDIT-C) 1. How often do you have a drink containing alcohol?: Never 3. How often do you have six or more drinks on one occasion?: Never Total Score: 0 Score Reviewed/Action Taken: No ALAYNA-7 AMB Questionnaire ALAYNA-7 Date ALAYNA - 7 assessed: 07/10/23 Feeling nervous, anxious, or on edge: 0 = Not at all Not being able to stop or control worryin = Not at all Worrying too much about different things: 0 = Not at all Trouble relaxin = Not at all Being so restless that it is hard to sit still: 0 = Not at all Becoming easily annoyed or irritable: 0 = Not at all Feeling afraid as if something awful might happen: 0 = Not at all Total ALAYNA-7 score (0-4 normal; 5-9 mild; 10-14 moderate; 15-21 severe): 0 Source: Developed by Drs. Quinn Wilcox, Kandace Flanagan, Stefano Woods and colleagues, with an educational tory from [employer]. Physical exam (Primary Care) Vital Signs: Last Vital Signs Pulse 78 07/10/23 09:34 BP 130/80 07/10/23 09:34 Pulse Ox 97 07/10/23 09:34 Oxygen Delivery Method Room Air 07/10/23 09:34 BMI result Body Mass Index 27.8 Tobacco/Smoking Status: Tobacco use Status Tobacco use date assessed 03/20/23 07/10/23 09:37 Patient Tobacco Use Status Never used Tobacco 07/10/23 09:37 e-Cigarette/Vaping Use Never Used 07/10/23 09:37 PHQ-9: PHQ-9 Score PHQ-9: Total score 0 07/10/23 09:50 Depression Screening Interpretation: Negative Thrive Assessment: Date of Thrive Assessment Date Thrive assessed 07/10/23 07/10/23 09:37 Currently or been in a relationship where the following occur: no concerns reported Const General: alert; No acute distress Eyes Conjunctivae: conjunctivae normal Resp Auscultation: clear to auscultation bilaterally Cardio Rate: regular rate Rhythm: regular rhythm GI Inspection: Yes normal to inspection Extrem General: Yes normal to inspection and No edema Results AMB Hemoglobin A1c AMB Hemoglobin A1c 5.1 % Last Edit by Paulina Gonzales CMA on 07/10/23 09:53 Assessment and Plan Assessment & Plan (1) Type 2 diabetes mellitus with hyperglycemia: Code(s): E11.65 - Type 2 diabetes mellitus with hyperglycemia Qualifiers: Diabetes mellitus prison insulin use: without terminologist use Qualified Code(s): E11.65 - Type 2 diabetes mellitus with hyperglycemia Plan: Decrease the amount of carbohydrate intake, pasta, bread, rice and potatoes are all sugar and that is aside from all the sweet stuff, remember that fruits are good but they are Sweet also. Hemoglobin A1c goal of less than 6.5 diet controlled (2) Hypertension: Code(s): I10 - Essential (primary) hypertension Qualifiers: Hypertension type: essential hypertension Qualified Code(s): I10 - Essential (primary) hypertension Plan: Blood pressure is controlled, low-salt diet. advisd to monitor for the BP 120/80 ideal. (3) Hypercholesterolemia: Code(s): E78.00 - Pure hypercholesterolemia, unspecified Plan: Avoid fried foods, chicken skin, eggs, butter margarine, pastries and meat. Be it pork or beef they have a lot of cholesterol April 2023 last blood work presently on simvastatin 40 mg once a day (4) Osteoporosis: Comment: Bone density August Code(s): M81.0 - Age-related osteoporosis without current pathological fracture Qualifiers: Osteoporosis type: other Presence of current pathological fracture: without current pathological fracture Qualified Code(s): M81.8 - Other osteoporosis without current pathological fracture Plan: Patient on denosumab under Hematology-Oncology bone density up-to-date (5) Multiple myeloma: Code(s): C90.00 - Multiple myeloma not having achieved remission Qualifiers: Multiple myeloma remission status: in remission Qualified Code(s): C90.01 - Multiple myeloma in remission Plan: April 2023 follows up with Hematology-Oncology presently on Revlimid on remission Orders: Orders AMB Hemoglobin A1c Today Z13.9 - Encounter for screening, unspecified Medications: Refilled cholestyramine-aspartame 4 gram (Prevalite) administer w/meal; avoid other meds within 1hr before or 4-6hr after dose 4 grams PO BID 180 packets 3RF diarrhea Coding Level of Care Code Est Pt Level 4 (17758) Diagnoses Type 2 diabetes mellitus with hyperglycemia, without long-term current use of insulin E11.65 Diabetes mellitus terminologist insulin use: without prison use Essential hypertension I10 Hypertension type: essential hypertension Hypercholesterolemia E78.00 Other osteoporosis without current pathological fracture M81.8 Osteoporosis type: other Presence of current pathological fracture: without current pathological fracture Multiple myeloma in remission C90.01 Multiple myeloma remission status: in remission Additional Codes PHQ-9 - 21405 - PHQ-9 Billing: ([id number])
[2023-07-10 09:34] VITALS: BP 130/80; PULSE 78; O2SAT 97; BMI 27.8
== END 2023-07-10 10:04 | disposition home or self-care (01) ==
PROVIDERS: PCP Internal Medicine; Visit Provider Internal Medicine
DX: E11.65 Type 2 diabetes mellitus with hyperglycemia (principal); I10 Essential (primary) hypertension; E78.00 Pure hypercholesterolemia, unspecified; C90.01 Multiple myeloma in remission
CPT/HCPCS: 83036; 99214

== ENCOUNTER 2023-08-17 11:56 | Outpatient (REF) | payer OTHER, SELFPAY ==
--- NOTE | ~2023-08-17 | MM_ITS ---
EXAMINATION: MM SCREENING DIGITAL BREAST TOMOSYNTHESIS, BILATERAL CLINICAL INFORMATION: Screening. Asymptomatic. The patient has a history of bilateral breast reduction. COMPARISON: Mammography: This study is compared with prior exams dating back to 2019. TECHNIQUE: Digital breast tomosynthesis is performed in both the craniocaudal and mediolateral oblique views along with computer-aided detection (CAD). Synthesized 2D images are generated from the tomosynthesis. FINDINGS: There are scattered areas of fibroglandular density (ACR BI-RADS breast composition Category b). There are no significant masses, abnormal calcifications, or other abnormalities. There are bilateral post reduction changes present. There is a tissue marker in the right breast from prior benign percutaneous biopsy. Few, benign calcifications are present in each breast. MM/MM tomosynthesis screening BI IMPRESSION: No mammographic evidence of malignancy. ASSESSMENT: BI-RADS BI-RADS 2 - Benign Findings RECOMMENDATION: Routine annual mammography screening. 1 year F/U This examination should not preclude the clinical evaluation of a suspicious palpable abnormality. This patient's information was entered into a reminder system with a target due date for their next mammogram.
== END 2023-08-17 11:57 | disposition home or self-care (01) ==
LOC: HO.MAMMO 11:56
PROVIDERS: PCP Internal Medicine; Visit Provider Internal Medicine
DX: Z12.31 Encounter for screening mammogram for malignant neoplasm of breast (principal)
CPT/HCPCS: 77063; 77067

== ENCOUNTER → 2023-08-17 12:30 | Outpatient (BNV) | payer OTHER, SELFPAY | PROVIDERS: PCP Internal Medicine; Visit Provider Radiology Diagnostic Radiology | DX: Z12.31 Encounter for screening mammogram for malignant neoplasm of breast (principal) | CPT/HCPCS: 77063; 77067 ==

== ENCOUNTER 2023-09-19 10:20 | Outpatient (AMB) | payer OTHER, SELFPAY ==
--- NOTE | 2023-09-19 10:52 | A.OFFPC_ITS ---
Vital Signs 09/19/23 10:53 09/19/23 11:29 Height 4 ft 8 in Weight 126 lb BMI 28.2 BP 152/80 H 140/80 H Blood Pressure Location Lt brachial Lt brachial Position Sitting Sitting Pulse 82 Pulse Source Pulse Oximeter Pulse Oximetry (%) 98 Oxygen Delivery Method Room Air Intake Visit Reasons: Annual Exam, Fatigue, HTN Allergies No Known Allergies [No Known Allergies*] Allergy (Verified 09/19/23 10:53) Medication List - Last Reconciled 09/19/23 by Samira Sommer MD aspirin 81 mg PO DAILY betamethasone, augmented 0.05 % (Diprolene (augmented)) 1 appl topical BID PRN [Dandy-600 With Vitamin D 500 mg PO DAILY] cholestyramine-aspartame 4 gram (Prevalite) 4 grams PO BID denosumab (Xgeva) 120 mg subcut q 3 months; dicyclomine 20 mg PO QID PRN ferrous sulfate 325 mg PO DAILY lenalidomide (Revlimid) 10 mg PO DAILY Tobacco use date assessed: 03/20/23 Dental Screening Dental Screen Date: 07/10/23 HPI Annual Exam HPI Details 62-year-old overweight female with contr olled diabetes mellitus hypertension hypercholesterolemia osteoporosis and history of multiple myeloma last seen in 07/06/2022. Patient is here for physical exam. Patient's colonoscopy is up-to-date January 2016 mammogram 08/06/2023 bone density was 10/05/2021. Patient is due. Patient continues to follow-up with Hematology- Oncology seen in July 2023 in remission receiving Revlimid and denosumab. stopped simvastatin. tonsil stone PFSH Medical History Anemia Common bile duct stone History of rib fracture Hypercholesterolemia Hypertension Irritable bowel syndrome Multiple myeloma Osteoporosis Rash T8 vertebral fracture Type 2 diabetes mellitus with hyperglycemia Surgical History History of section History of cholecystectomy History of ERCP History of surgery Family History Mother Anemia CVD (cardiovascular disease) Hypertension CHF (congestive heart failure) Sister Breast cancer Father Medical history unknown Maternal Grandmother Lung cancer Sister No problems noted. Social History Household Members: Children Housing: House Alcohol intake: never Patient Tobacco Use Status: Never used Tobacco e-Cigarette/Vaping Use: Never Used Second Hand Smoke Exposure: No service: No Current occupational status: employed Cognitive needs: No Hearing needs: No Vision needs: Yes Questionnaire PHQ-9 Over the last 2 weeks, how often have you been bothered by any of the following problems? 1. Little interest or pleasure in doing things: not at all 2. Feeling down, depressed, or hopeless: not at all 3. Trouble falling or staying asleep, or sleeping too much: not at all 4. Feeling tired or having little energy: not at all 5. Poor appetite or overeating: not at all 6. Feeling bad about yourself - or that you are a failure or have let yourself or your family down: not at all 7. Trouble concentrating on things, such as reading the newspaper or watching television: not at all 8. Moving or speaking so slowly that other people could have noticed. Or the opposite - being so fidgety or restless that you have been moving around a lot more than usual: not at all 9. Thoughts that you would be better off or of hurting yourself in some way: not at all Total score: 0 Depression Screening Interpretation: Negative Depression Screening Done: Yes Source: Developed by Drs. Quinn Wilcox, Stefano Aaron and colleagues, with an educational tory from [employer]. Thrive Questionnaire Date Thrive assessed: 07/10/23 AUDIT C Alcohol Use Questionnaire (AUDIT-C) 1. How often do you have a drink containing alcohol?: Never 3. How often do you have six or more drinks on one occasion?: Never Total Score: 0 Score Reviewed/Action Taken: No ALAYNA-7 AMB Questionnaire ALAYNA-7 Date ALAYNA - 7 assessed: 07/10/23 Source: Developed by Drs. Quinn Wilcox, Stefano Aaron and colleagues, with an educational tory from [employer]. Review of Systems Const Denies poor appetite and Denies weakness Eyes Denies no additional complaints ENT Reports Normal hearing present, Denies dizziness, Denies nasal congestion, Denies tinnitus and Denies sore throat Card Denies chest pain, Denies syncope, Denies rapid heart rate and Denies dyspnea Resp Denies cough and Denies dyspnea GI Denies change in stool character, Reports constipation, Denies diarrhea, Denies nausea and Denies vomiting Denies urinary frequency, Denies difficulty voiding and Denies dysuria Neuro Reports Normal hearing present, Denies confusion, Denies dizziness, Denies syncope and Denies weakness Psych Denies confusion Physical exam (Primary Care) Vital Signs: Last Vital Signs Pulse 82 09/19/23 10:53 BP 152/80 H 09/19/23 10:53 Pulse Ox 98 09/19/23 10:53 Oxygen Delivery Method Room Air 09/19/23 10:53 BMI result Body Mass Index 28.2 Tobacco/Smoking Status: Tobacco use Status Tobacco use date assessed 03/20/23 09/19/23 11:00 Patient Tobacco Use Status Never used Tobacco 09/19/23 11:00 e-Cigarette/Vaping Use Never Used 09/19/23 11:00 PHQ-9: PHQ-9 Score PHQ-9: Total score 0 09/19/23 11:18 Depression Screening Interpretation: Negative Thrive Assessment: Date of Thrive Assessment Date Thrive assessed 07/10/23 09/19/23 11:00 Const General: No confusion Orientation/consciousness: No confusion HENMT Head: Yes normocephalic Ears: external ears normal and TM's normal bilaterally Face and sinus: Yes normal facial exam Mouth: moist mucous membranes Throat: Yes tonsils normal Eyes Conjunctivae: conjunctivae normal Pupils: Equal, round and reactive pupils present and Pupil accommodation reflex normal Direct Ophthalmoscopy: normal light reflex Neck Neck: No lymphadenopathy Thyroid: Thyroid normal Chest Chest palpation & inspection: normal inspection of the chest Resp Effort & Inspection: normal respiratory effort and no audible wheezes Auscultation: clear to auscultation bilaterally, no crackles, no wheezes and lung sounds not diminished Cardio Rate: regular rate Rhythm: regular rhythm Peripheral pulses: radial pulses present and dorsalis pedis present GI Palpation (GI): no masses Auscultation: normal bowel sounds and normoactive bowel sounds Rectal Exam - Female: deferred Skin General skin exam: no rashes or lesions noted Rashes: no rashes Neuro General: No confusion Cranial nerves: Yes Equal, round and reactive pupils present and Yes Normal hearing present Cognition (Neuro): normal cognition Gait exam (Neuro): Normal gait present Motor exam (neuro): 5/5 motor strength present throughout Deep tendon reflexes (DTR's): Right brachioradialis reflex intensity grade: 2+, Left brachioradialis reflex intensity grade: 2+, Right patellar reflex intensity grade: 2+ and Left patellar reflex intensity grade: 2+ Extrem General: No edema Results AMB Hemoglobin A1c AMB Hemoglobin A1c 4.8 % Last Edit by Paulina Gonzales CMA on 09/19/23 11 :19 Results Reviewed Results Reviewed: Laboratory Last Values Hgb A1c (Clinic) 4.8 % (4.0-6.0) 09/19/23 11:19 Assessment and Plan Assessment & Plan (1) Annual physical exam: Code(s): Z00.00 - Encounter for general adult medical examination without abnormal findings Plan: Patient is advised to eat healthy, keep well hydrated, keep active and have adequate sleep. (2) Type 2 diabetes mellitus with hyperglycemia: Code(s): E11.65 - Type 2 diabetes mellitus with hyperglycemia Qualifiers: Diabetes mellitus termite exterminator insulin use: without termite exterminator use Qualified Code(s): E11.65 - Type 2 diabetes mellitus with hyperglycemia Plan: Decrease the amount of carbohydrate intake, pasta, bread, rice and potatoes are all sugar and that is aside from all the sweet stuff, remember that fruits are good but they are Sweet also. Hemoglobin A1c goal of less than 6.5 patient is controlled with diet (3) Hypercholesterolemia: Code(s): E78.00 - Pure hypercholesterolemia, unspecified Plan: Avoid fried foods, chicken skin, eggs, butter margarine, pastries and meat. Be it pork or beef they have a lot of cholesterol LDL goal of less than 100 and triglyceride of less than 150 on simvastatin 40 mg once a day 05/08/2023 blood work (4) Osteoporosis: Comment: Bone density August Code(s): M81.0 - Age-related osteoporosis without current pathological fracture Qualifiers: Osteoporosis type: other Presence of current pathological fracture: without current pathological fracture Qualified Code(s): M81.8 - Other osteoporosis without current pathological fracture Plan: On denosumab and bone density is due. (5) Multiple myeloma: Code(s): C90.00 - Multiple myeloma not having achieved remission Qualifiers: Multiple myeloma remission status: in remission Qualified Code(s): C90.01 - Multiple myeloma in remission Plan: Continue to follow-up with Hematology-Oncology on Revlimid and Xgeva in remission (6) Hypertension: Code(s): I10 - Essential (primary) hypertension Qualifiers: Hypertension type: essential hypertension Qualified Code(s): I10 - Essential (primary) hypertension Orders: Orders Basic Metabolic Panel 2 Months I10 - Essential (primary) hypertension AMB Hemoglobin A1c Today Z13.9 - Encounter for screening, unspecified XR DEXA axial skeleton Today M81.0 - Age-related osteoporosis without current pathological fracture, M81.8 - Other osteoporosis without current pathological fracture Medications: New betamethasone dipropionate 0.05% 1 appl topical BID PRN 45 grams 0RF skin irritation L30.9 - Dermatitis, unspecified lisinopril 5 mg PO DAILY 30 tabs 3RF E11.65 - Type 2 diabetes mellitus with hyperglycemia Discontinued betamethasone, augmented 0.05 % (Diprolene (augmented)) Discontinued Reason: Doctor's Order 1 appl topical BID PRN 45 grams 0RF skin irritation L30.9 - Dermatitis, unspecified dicyclomine Discontinued Reason: Change Referral Type 20 mg PO QID PRN Coding Level of Care Code Est Pt Prev Care 40-64y(82466) Diagnoses Annual physical exam Z00.00 Type 2 diabetes mellitus with hyperglycemia, without long-term current use of insulin E11.65 Diabetes mellitus longterm insulin use: without termite exterminator use Hypercholesterolemia E78.00 Other osteoporosis without current pathological fracture M81.8 Osteoporosis type: other Presence of current pathological fracture: without current pathological fracture Multiple myeloma in remission C90.01 Multiple myeloma remission status: in remission Essential hypertension I10 Hypertension type: essential hypertension Additional Codes PHQ-9 - 98234 - PHQ-9 Billing: ([id number])
[2023-09-19 10:53] VITALS: BP 152/80; PULSE 82; O2SAT 98; BMI 28.2
[2023-09-19 11:29] VITALS: BP 140/80
== END 2023-09-19 11:54 | disposition home or self-care (01) ==
PROVIDERS: PCP Internal Medicine; Visit Provider Internal Medicine
DX: Z00.00 Encounter for general adult medical examination without abnormal findings (principal); E11.65 Type 2 diabetes mellitus with hyperglycemia; C90.01 Multiple myeloma in remission; E78.00 Pure hypercholesterolemia, unspecified; M81.8 Other osteoporosis without current pathological fracture; I10 Essential (primary) hypertension
CPT/HCPCS: 83036; 99396

== ENCOUNTER 2023-10-05 08:39 | Outpatient (REF) | payer OTHER, SELFPAY ==
--- NOTE | ~2023-10-05 | MM_ITS ---
EXAMINATION: BONE DENSITOMETRY CLINICAL INDICATION: Age-related osteoporosis without current pathological fracture. COMPARISON: Previous BD dated 09/21/2021 and baseline BD dated 03/24/2014. TECHNIQUE: Using a i[employer] DXA System (software version: 13.1) manufactured by [employer], dual-energy x-ray absorptiometry was performed of the lumbar spine and left hip. The images are of good technical quality. Summary results are attached. FINDINGS: LEFT FEMUR, NECK: Current: BMD 0.667 g/cm2, Z-score -2.1, T-score -2.7, osteoporosis. Prior: BMD 0.667 g/cm2. Baseline: BMD 0.632 g/cm2. LEFT FEMUR, TOTAL: Current: BMD 0.722 g/cm2, Z-score -2.0, T-score -2.3, osteopenia, 4.6% increase from previous, 13.3% increase from baseline (<5% change is not significant). Prior: BMD 0.690 g/cm2. Baseline: BMD 0.637 g/cm2. AP SPINE L1-L4: Current: BMD 0.892 g/cm2, Z-score -1.5, T-score -2.4, osteopenia, 3.8% increase from previous, 17.7% increase from baseline (<5% change is not significant). Prior: BMD 0.859 g/cm2. Baseline: BMD 0.758 g/cm2. IDENTIFIED RISK FACTORS: Early menopause, height loss, history of fracture (adult), osteoporosis, secondary osteoporosis. HISTORY OF FRACTURE: Hip, other. MEDICATIONS: Vitamin D, calcium. MM/XR DEXA axial skeleton IMPRESSION: 1. DIAGNOSIS: Severe osteoporosis based on the lowest T-score value of -2.7 in the femoral neck, and the history of a hip fracture, applying World Health Organization criteria. 2. 10-YEAR FRACTURE RISK PREDICTION, FRAX: According to the guidelines, FRAX calculation should only be performed on patients in the osteopenia bone density category. Therefore, FRAX was not performed on this patient. 3. Treatment Recommendations: NOF guidelines recommend consideration for treatment in postmenopausal women and men age 50 and older presenting with the following: -A hip or vertebral (clinical or morphometric) fracture. -T-score less than or equal to -2.5 at the femoral neck or spine after appropriate evaluation to exclude secondary causes. -Low bone mass at the hip or spine and a 10-year fracture probability by FRAX of greater than or equal to 3% for hip fracture or greater than or equal to 20% for major osteoporotic fracture based on the [place] adapted WHO algorithm. 4. Other Recommendations: All treatment decisions require clinical judgment and consideration of individual patient factors, including patient preferences, comorbidities, previous drug use, risk factors not captured in the FRAX model (e.g. frailty, falls, vitamin D deficiency, increased bone turnover, interval significant decline in bone density) and possible under or overestimation of fracture risk by FRAX. Additional medical evaluation for secondary cause of low bone mineral density may be appropriate. FUTURE SCAN RECOMMENDATION: People with diagnosed cases of osteoporosis or at high risk for fracture should have regular bone mineral density tests. For patients eligible for Medicare, routine testing is allowed once every 2 years. The testing frequency can be increased to one year for patients who have rapidly progressing disease, those who are receiving or discontinuing medical therapy to restore bone mass, or have additional risk factors.
== END 2023-10-05 08:40 | disposition home or self-care (01) ==
LOC: HO.MAMMO 08:39
PROVIDERS: PCP Internal Medicine; Visit Provider Internal Medicine
DX: M81.0 Age-related osteoporosis without current pathological fracture (principal); M81.8 Other osteoporosis without current pathological fracture; Z78.0 Asymptomatic menopausal state
CPT/HCPCS: 77080

== ENCOUNTER 2023-11-23 09:33 | Outpatient (AMB) | payer OTHER, SELFPAY ==
--- NOTE | 2023-11-23 09:36 | MHC.PC.OV ---
Vital Signs 11/23/23 09:37 Height 4 ft 8 in Weight 129 lb 2 oz BMI 28.9 BP 130/68 Blood Pressure Location Lt brachial Position Sitting Pulse 82 Pulse Source Pulse Oximeter Pulse Oximetry (%) 96 Oxygen Delivery Method Room Air Intake Visit Reasons: dm Intake Note: Patient is here to follow up on DM. 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 September 2023 last seen for physical exam. Patient's colonoscopy last done in 2015, mammogram is up-to-date 08/06/2023 bone density 10/06/2023. Review of the notes in October 29 was seen by the Hematology Oncology presently on remission receiving Revlimid 10 mg once a day 03/20/2013, aspirin 325 mg once a day on denosumab 120 mg every 6 months has been advised to discontinue due to 5 years of denosumab. Patient has seen gastroenterology also for IBS September 2023 on cholestyramine advised not taking within 2 hours of taking medications. [facility] Medical History (Updated 11/23/23 @ 10:07 by Samira Sommer MD) History of bone density study Rash Common bile duct stone T8 vertebral fracture History of rib fracture Anemia Type 2 diabetes mellitus with hyperglycemia Multiple myeloma Osteoporosis Irritable bowel syndrome Hypercholesterolemia Surgical History Hypertension History of ERCP History of surgery History of section History of cholecystectomy Family History Mother Anemia CVD (cardiovascular disease) Hypertension CHF (congestive heart failure) Sister Breast cancer Father Medical history unknown Maternal Grandmother Lung cancer Sister No problems noted. Social History Household Members: Children Housing: House Alcohol intake: never Patient Tobacco Use Status: Never used Tobacco e-Cigarette/Vaping Use: Never Used Second Hand Smoke Exposure: No service: No Current occupational status: employed Cognitive needs: No Hearing needs: No Vision needs: Yes Questionnaire Thrive Questionnaire Date Thrive assessed: 07/10/23 ALAYNA-7 AMB Questionnaire ALAYNA-7 Date ALAYNA - 7 assessed: 07/10/23 Source: Developed by Drs. Quinn Wilcox, Kandace Flanagan, Stefano Woods and colleagues, with an educational tory from [employer]. Physical exam (Primary Care) Vital Signs: Last Vital Signs Pulse 82 11/23/23 09:37 BP 130/68 11/23/23 09:37 Pulse Ox 96 11/23/23 09:37 Oxygen Delivery Method Room Air 11/23/23 09:37 BMI result Body Mass Index 28.9 Tobacco/Smoking Status: Tobacco use Status Tobacco use date assessed 11/23/23 11/23/23 09:42 Patient Tobacco Use Status Never used Tobacco 11/23/23 09:42 e-Cigarette/Vaping Use Never Used 11/23/23 09:42 Thrive Assessment: Date of Thrive Assessment Date Thrive assessed 07/10/23 11/23/23 09:42 Const General: alert; No acute distress Eyes Conjunctivae: conjunctivae normal Resp Auscultation: clear to auscultation bilaterally Cardio Rate: regular rate Rhythm: regular rhythm GI Inspection: Yes normal to inspection Extrem General: Yes normal to inspection and No edema Assessment and Plan Assessment & Plan (1) Type 2 diabetes mellitus with hyperglycemia: Comment: Eye and lasik Code(s): E11.65 - Type 2 diabetes mellitus with hyperglycemia Qualifiers: Diabetes mellitus head of integrated media insulin use: without head of integrated media use Qualified Code(s): E11.65 - Type 2 diabetes mellitus with hyperglycemia Plan: Decrease the amount of carbohydrate intake, pasta, bread, rice and potatoes are all sugar and that is aside from all the sweet stuff, remember that fruits are good but they are Sweet also. Hemoglobin A1c goal of less than 6.5. Patient is diet controlled (2) Hypertension: Code(s): I10 - Essential (primary) hypertension Qualifiers: Hypertension type: essential hypertension Qualified Code(s): I10 - Essential (primary) hypertension Plan: Continue with blood pressure medication. Decrease salt intake and exercise lisinopril 5 mg once a day (3) Hypercholesterolemia: Code(s): E78.00 - Pure hypercholesterolemia, unspecified Plan: Avoid fried foods, chicken skin, eggs, butter margarine, pastries and meat. Be it pork or beef they have a lot of cholesterol LDL goal of less than 100 and triglyceride of less than 150. 05/08/2023 last blood work (4) Osteoporosis: Comment: Bone density August2023 Code(s): M81.0 - Age-related osteoporosis without current pathological fracture Qualifiers: Osteoporosis type: other Presence of current pathological fracture: without current pathological fracture Qualified Code(s): M81.8 - Other osteoporosis without current pathological fracture Plan: On denosumab followed up by hematology oncology placed on denosumab 5 years already in advised discontinue. (5) Multiple myeloma: Code(s): C90.00 - Multiple myeloma not having achieved remission Qualifiers: Multiple myeloma remission status: in remission Qualified Code(s): C90.01 - Multiple myeloma in remission Plan: On remission follows up with Hematology-Oncology on Revlimid. Advised to take aspirin Coding Level of Care Code Est Pt Level 4 (63459) Diagnoses Type 2 diabetes mellitus with hyperglycemia, without long-term current use of insulin E11.65 Diabetes mellitus head of integrated media insulin use: without head of integrated media use Essential hypertension I10 Hypertension type: essential hypertension Hypercholesterolemia E78.00 Other osteoporosis without current pathological fracture M81.8 Osteoporosis type: other Presence of current pathological fracture: without current pathological fracture Multiple myeloma in remission C90.01 Multiple myeloma remission status: in remission
[2023-11-23 09:37] VITALS: BP 130/68; PULSE 82; O2SAT 96; BMI 28.9
== END 2023-11-23 10:10 | disposition home or self-care (01) ==
PROVIDERS: PCP Internal Medicine; Visit Provider Internal Medicine
DX: E11.65 Type 2 diabetes mellitus with hyperglycemia (principal); I10 Essential (primary) hypertension; E78.00 Pure hypercholesterolemia, unspecified; M81.8 Other osteoporosis without current pathological fracture; C90.01 Multiple myeloma in remission
CPT/HCPCS: 99214

== ENCOUNTER 2023-12-18 12:39 | Outpatient (REF) | payer OTHER, SELFPAY ==
[2023-12-19 09:44] LABS: Bacterial Vaginosis PCR NEGATIVE (Negative); Candida Group PCR NOT DETECTED (Not Detect); Candida glab krusei PCR NOT DETECTED (Not Detect); Trichomonas vaginalis PCR NOT DETECTED (Not Detect)
[2023-12-19 10:16] LABS: CT PCR NOT DETECTED (Not Detect.); NG PCR NOT DETECTED (Not Detect.)
[2023-12-21 07:38] LABS: HPV mRNA E6/E7 Not Detected (Not Detected)
== END 2023-12-18 12:40 | disposition home or self-care (01) ==
LOC: HO.LAB 12:39
PROVIDERS: PCP Internal Medicine; Visit Provider Internal Medicine
DX: Z12.4 Encounter for screening for malignant neoplasm of cervix (principal); L30.9 Dermatitis, unspecified
CPT/HCPCS: 0352U; 36415; 87491; 87591; 87624; 88175; 99212

== ENCOUNTER 2023-12-18 12:39 | Outpatient (AMB) | payer OTHER, SELFPAY ==
--- NOTE | 2023-12-18 12:40 | A.OFFPC_ITS ---
Vital Signs 12/18/23 12:46 Height 4 ft 8 in Weight 125 lb 0.2 oz BMI 28.0 BP 110/82 Blood Pressure Location Lt brachial Pulse 89 Pulse Source Pulse Oximeter Pulse Oximetry (%) 97 Oxygen Delivery Method Room Air Intake Visit Reasons: Pap Smear Allergies No Known Allergies [No Known Allergies*] Allergy (Verified 12/18/23 12:53) Tobacco use date assessed: 11/23/23 Dental Screening Dental Screen Date: 07/10/23 HPI Pap Smear HPI Details 63-year-old overweight female with a his tory of diabetes mellitus controlled hypertension hypercholesterolemia multiple myeloma coming in for Pap smear. Patient was just seen in November 22 A1c 4.8. Patient complains of having hypersensitive area on both anterior leg area with no rash noted but she does feel that there some change in pigmentation. Prompted for consultation [facility] Medical History (Updated 12/18/23 @ 13:12 by Samira Sommer MD) History of bone density study Rash Common bile duct stone T8 vertebral fracture History of rib fracture Anemia Type 2 diabetes mellitus with hyperglycemia Multiple myeloma Osteoporosis Irritable bowel syndrome Hypercholesterolemia Surgical History Hypertension History of ERCP History of surgery History of section History of cholecystectomy Family History Mother Anemia CVD (cardiovascular disease) Hypertension CHF (congestive heart failure) Sister Breast cancer Father Medical history unknown Maternal Grandmother Lung cancer Sister No problems noted. Social History Household Members: Children Housing: House Alcohol intake: never Patient Tobacco Use Status: Never used Tobacco e-Cigarette/Vaping Use: Never Used Second Hand Smoke Exposure: No service: No Current occupational status: employed Cognitive needs: No Hearing needs: No Vision needs: Yes Questionnaire Thrive Questionnaire Date Thrive assessed: 07/10/23 Are you currently unemployed and looking for a job?: I choose not to answer this question AUDIT C Alcohol Use Questionnaire (AUDIT-C) 1. How often do you have a drink containing alcohol?: Never 3. How often do you have six or more drinks on one occasion?: Never Total Score: 0 Score Reviewed/Action Taken: No ALAYNA-7 AMB Questionnaire ALAYNA-7 Date ALAYNA - 7 assessed: 07/10/23 Source: Developed by Drs. Quinn Wilcox, Kandace Flanagan, Stefano Woods and colleagues, with an educational tory from [employer]. Physical exam (Primary Care) Vital Signs: Last Vital Signs Pulse 89 12/18/23 12:46 BP 110/82 12/18/23 12:46 Pulse Ox 97 12/18/23 12:46 Oxygen Delivery Method Room Air 12/18/23 12:46 BMI result Body Mass Index 28.0 Tobacco/Smoking Status: Tobacco use Status Tobacco use date assessed 11/23/23 12/18/23 12:41 Patient Tobacco Use Status Never used Tobacco 12/18/23 12:41 e-Cigarette/Vaping Use Never Used 12/18/23 12:41 Thrive Assessment: Date of Thrive Assessment Date Thrive assessed 07/10/23 12/18/23 12:41 GI Other: guaiac negative stools General: Yes Bimanual renal exam normal bilaterally External Female Exam: normal external appearance Speculum Exam - Vagina: normal appearance of the vagina Speculum Exam - Cervix: normal appearance of the cervix Bimanual Exam- Adnexa, other: normal adnexae Coding Level of Care Code Est Pt Level 3 (69537) Diagnoses Cervical cancer screening Z12.4 Eczema L30.9 Assessment & Plan Assessment & Plan (1) Cervical cancer screening: Code(s): Z12.4 - Encounter for screening for malignant neoplasm of cervix Category: Medical Plan: papsmear done (2) Eczema: Comment: Bilateral anterior leg area Code(s): L30.9 - Dermatitis, unspecified Category: Medical Plan: Patient was prescribed a steroid cream which gave temporarily relief but with the pruritic problem referral to dermatology done Orders: Orders Bacterial Vaginosis Panel Today Z12.4 - Encounter for screening for malignant neoplasm of cervix CT NG by PCR Today Z12.4 - Encounter for screening for malignant neoplasm of cervix Pap Smear Today Z12.4 - Encounter for screening for malignant neoplasm of cervix Referrals Dermatology Referral L30.9 - Dermatitis, unspecified
[2023-12-18 12:46] VITALS: BP 110/82; PULSE 89; O2SAT 97; BMI 28.0
== END 2023-12-18 13:17 | disposition home or self-care (01) ==
PROVIDERS: PCP Internal Medicine; Visit Provider Internal Medicine
DX: Z12.4 Encounter for screening for malignant neoplasm of cervix (principal); L30.9 Dermatitis, unspecified

== ENCOUNTER 2023-12-18 13:13 | Outpatient (REF) | payer OTHER, SELFPAY | END 2023-12-18 13:14 | disposition home or self-care (01) | LOC: HO.LNP 13:13 | PROVIDERS: Visit Provider Internal Medicine | DX: Z13.89 Encounter for screening for other disorder (principal) ==

== ENCOUNTER 2024-02-02 12:28 | Emergency (ER) | payer OTHER, SELFPAY ==
[2024-02-02 12:50] VITALS: BP 143/62; PULSE 113; RESP 18; TEMP 37.3; O2SAT 100; BMI 29.3
--- NOTE | 2024-02-02 12:56 | ED_ITS ---
HPI - General Adult General Chief complaint: Abdominal Pain Stated complaint: seen at last week for gastro, still feeling ill Time Seen by Provider: 02/02/24 18:00 Source: patient Mode of arrival: ambulatory Limitations: no limitations History of Present Illness ED Provider: willy KEARNEY narrative: Patient is 63 years old history of IgG multiple myeloma in remission receiving Revlimid and denosumab comes here for nausea vomiting for last 2 weeks last vomiting was few days ago and no diarrhea today patient's vomiting 2 to 3 times a day with severe nausea was at [facility] 3 days ago was given IV fluids did not have any diarrhea /vomiting for last 2 days Related Data Home Medications ?Medication ?Instructions ?Recorded ?Confirmed Dandy-600 With Vitamin D 500 mg PO DAILY 12/23/19 01/23/24 ferrous sulfate 325 mg (65 mg 325 mg PO DAILY 12/23/19 01/23/24 iron) tablet aspirin 81 mg capsule 81 mg PO DAILY 03/28/22 01/23/24 Previous Rx's ?Medication ?Instructions ?Recorded cholestyramine-aspartame 4 gram 4 g PO BID diarrhea #180 packets 07/10/23 oral powder for susp in a packet (Prevalite) denosumab 120 mg/1.7 mL (70 mg/mL) 120 mg (1.7 mL) subcut .COMPLEX #6 07/10/23 subcutaneous solution (Xgeva) mL betamethasone dipropionate 0.05 % 1 appl topical BID PRN skin 09/19/23 topical cream irritation #45 grams lenalidomide 10 mg capsule 10 mg PO DAILY #14 caps 11/13/23 (Revlimid) lenalidomide 10 mg capsule 10 mg PO DAILY #14 caps 12/07/23 (Revlimid) lenalidomide 10 mg capsule 10 mg PO DAILY 14 days #14 caps 01/14/24 (Revlimid) lisinopril 5 mg tablet 5 mg PO DAILY #90 tabs 01/31/24 ondansetron 4 mg disintegrating 4 mg PO Q6-8H PRN nausea and 02/02/24 tablet vomiting #14 tabs tramadol 50 mg tablet 50 mg PO Q8H PRN pain #20 tabs 02/02/24 Allergies Allergy/AdvReac Type Severity Reaction Status Date / Time No Known Allergies Allergy Verified 02/02/24 12:55 [No Known Allergies*] Review of Systems 2 Review of Systems: Yes all other systems are reviewed and are negative [facility] Past Medical History Medical History History of bone density study Rash Common bile duct stone T8 vertebral fracture History of rib fracture Anemia Type 2 diabetes mellitus with hyperglycemia Multiple myeloma Osteoporosis Irritable bowel syndrome Hypercholesterolemia Surgical History Hypertension History of ERCP History of surgery History of section History of cholecystectomy Family History Family History Mother Anemia CVD (cardiovascular disease) Hypertension CHF (congestive heart failure) Sister Breast cancer Father Medical history unknown Maternal Grandmother Lung cancer Sister No problems noted. Social History Social History Household Members: Children Housing: House Alcohol intake: never Patient Tobacco Use Status: Never used Tobacco Smoked in Last 30 Days: No e-Cigarette/Vaping Use: Never Used Second Hand Smoke Exposure: No Use of substances other than those prescribed or required for medical reasons: No Advance Directives: No Advance Directives Information Provided: No Do you have a plan to hurt others: No Plan Patient : No service: No Current occupational status: employed Cognitive needs: No Hearing needs: No Vision needs: Yes Physical Exam ED Vital Signs: Vital Signs - 24 hr 02/02/24 12:50 02/02/24 17:54 02/02/24 19:09 Temperature 99.2 F 99.7 F Pulse Rate 113 H 108 H 103 H Respiratory Rate 18 16 Blood Pressure 143/62 H 118/76 110/67 Pulse Oximetry 100 100 Oxygen Delivery Method Room Air Room Air 02/02/24 19:09 02/02/24 19:09 02/02/24 19:58 Temperature 99.4 F Pulse Rate 108 H 113 H 109 H Respiratory Rate 16 Blood Pressure 116/72 109/71 101/65 Pulse Oximetry 98 Oxygen Delivery Method Room Air 02/02/24 20:17 Temperature 99.4 F Pulse Rate 109 H Respiratory Rate 16 Blood Pressure 101/65 Pulse Oximetry 98 Oxygen Delivery Method Room Air BMI result Body Mass Index 29.3 Appearance: Alert. Oriented X3. No acute distress. Eyes: ++ pallor ENT: Pharynx normal. Oral Mucosa dry Neck: Normal inspection. Neck supple. CVS: Normal heart rate and rhythm. Pulses normal. Respiratory: No respiratory distress. Equal air entry bilateral, no wheezing/rales/rhonchi Abdomen: Soft and nontender. Bowel sounds are present, no mass palpable, no CVA tenderness Skin: Skin warm and dry. Normal skin color. Normal skin turgor. Extremities: No lower extremity edema. No calf tenderness Neuro: Oriented X 3. No motor deficit. No sensory deficit.No cerebellar signs , cranial nerves II-XII intact Course Course Course Narrative: This is an RME: Additional HPI, ROS, PE not included below will be deferred to primary provider. RME assessment and note performed by: Sanam Escobar PA-C This is a 43-[id number]-female, diabetes mellitus controlled hypertension hypercholesterolemia and multiple myeloma on treatment since 2015, who presents to the ER with complaints of abdominal pain, nausea, vomiting x 2 weeks. Has been to [facility] x2 without any answers. Only having nausea and abdominal pain now. Also endorsing body aches. Plan: Labs, UA, EKG further ER evaluation needed. Medications Administered Discontinued Medications Generic Name Dose Route Start Last Admin Trade Name Freq PRN Reason Stop Dose Admin Ondansetron HCl 4 mg 02/02/24 18:09 02/02/24 18:24 Ondansetron Odt 4 Mg Tab.Rapdis TRANSLINGU 02/02/24 18:10 4 mg ONCE ONE Administration Tramadol HCl 50 mg 02/02/24 19:47 02/02/24 20:14 Tramadol Hcl 50 Mg Tablet PO 02/02/24 19:48 50 mg ONCE ONE Administration Medical Decision Making Medical Decision Making [facility] Narrative: Picked it patient with nausea poor oral intake with history multiple myeloma workup showed no significant dehydration patient was given ondansetron and patient was able to drink fluids discharge patient home on Zofran and advised to drink plenty of fluids and follow with PCP Differential Diagnosis Differential Diagnoses: The differential diagnosis associated with the presentation includes Lab Data MDM Lab Attestation statement: I reviewed the patient's lab results. 02/02/24 13:27 02/02/24 13:27 Labs: Lab Results 02/02/24 Range/Units 13:27 WBC 9.1 (4.8-10.8) X10*3/uL RBC 3.85 L (4.20-5.50) X10*6/uL Hgb 11.2 L (12.0-16.0) g/dl Hct 32.7 L (37.0-47.0) % MCV 84.9 (80.0-98.0) fL MCH 29.1 (27.0-33.0) pg MCHC 34.3 (31.0-35.0) g/dl RDW 12.7 (11.0-16.0) % Plt Count 245 (160-400) X10*3/uL MPV 9.5 (9.4-12.3) fL Immature Gran % (Auto) 0.4 (0.0-0.4) % Neut % (Auto) 76.2 H (45-73) % Lymph % (Auto) 5.6 L (20-40) % [place] % (Auto) 9.9 (2-11) % Eos % (Auto) 7.5 H (0-4) % Baso % (Auto) 0.4 (0-2) % Lymph # (Auto) 0.5 L (1.2-4.9) X10*3/uL [place] # (Auto) 0.9 (0.1-1.2) X10*3/uL Eos # (Auto) 0.7 H (0.0-0.4) X10*3/uL Baso # (Auto) 0.0 (0.0-0.2) X10*3/uL Abs Immat Gran (auto) 0.04 H (0.00-0.03) X10*3/uL Absolute Neuts (auto) 6.9 (2.0-8.3) x10*3/uL Absolute Nucleated RBC 0.000 (0.0-0.012) X10*3/uL Nucleated RBC % (auto) 0.0 (0.0-0.2) /100WBC Sodium 133 L (135-145) mmol/L Potassium 3.5 (3.3-5.1) mmol/L Chloride 99 (96-108) mmol/L Carbon Dioxide 27 (22-29) mmol/L Anion Gap 11 L (12-20) BUN 6 L (9-16) mg/dL Creatinine 0.83 (0.5-1.4) mg/dL Estim Creat Clear Calc 47.9 Estimated GFR > 60 Random Glucose 131 H (60-115) mg/dL Calcium 8.9 D (8.4-10.2) mg/dL Magnesium 1.5 L (1.6-2.6) mg/dL Total Bilirubin 0.5 (0.0-1.0) mg/dL AST 15 (5-31) U/L ALT 10 (0-31) U/L Alkaline Phosphatase 60 (39-117) U/L Troponin I High Sens 4.2 (<3.5-17.0) ng/L Total Protein 6.8 (6.5-8.0) g/dL Albumin 3.2 L (3.5-5.0) g/dL Lipase 12 (8-78) U/L Urine Color Dark Yellow Urine Appearance Clear Urine pH 6.0 (5.0-9.0) Ur Specific [place] 1.020 (1.005-1.025) Urine Protein 100 (2+) H (Neg-Trace) mg/dL Urine Glucose (UA) Negative (Negative) mg/dL Urine Ketones Negative (Negative) mg/dL Urine Blood Negative (Negative) Urine Nitrite Negative (Negative) Ur Leukocyte Esterase Trace H (Negative) Urine RBC 0-2 (0-2) /HPF Urine WBC 0-5 (0-5) /HPF Ur Squamous Epith Cells 0-2 (0-2) /HPF Urine Bacteria None Seen (None Seen) Hyaline Casts 0-2 (0-2) /LPF Influenza Type A (PCR) NEGATIVE (Negative) Influenza Type B (PCR) NEGATIVE (Negative) RSV RNA Qual (PCR) NEGATIVE (Negative) SARS-CoV-2 RNA (RT-PCR) NEGATIVE (Negative) Discharge Plan Discharge Clinical Impression: Nausea, Rotator cuff strain Patient Disposition: Home, Self-Care Instructions: Rotator Cuff Injury (ED), Acute Nausea and Vomiting (ED), Rotator Cuff Injury Exercises (DC) Additional Instructions: Drink plenty of fluids Medicine for nausea as prescribed Pain medicine as prescribed Follow up with oncologist/PCP Prescriptions: New tramadol 50 mg tablet 50 mg PO Q8H PRN (Reason: pain) Qty: 20 0RF ondansetron 4 mg tablet,disintegrating 4 mg PO Q6-8H PRN (Reason: nausea and vomiting) Qty: 14 0RF No Action Xgeva 120 mg/1.7 mL (70 mg/mL) solution 120 mg subcut .COMPLEX Qty: 6 0RF Rx Instructions: 120 mg subcut q 3 months; lisinopril 5 mg tablet 5 mg PO DAILY Qty: 90 1RF ferrous sulfate 325 mg (65 mg iron) Tablet 325 mg PO DAILY Dandy-600 With Vitamin D 500 mg PO DAILY aspirin 81 mg Capsule 81 mg PO DAILY lenalidomide [Revlimid] 10 mg Capsule 10 mg PO DAILY Qty: 14 0RF Rx Instructions: swallow whole with glass of water; do not open, crush, chew , break, or dissolve lenalidomide [Revlimid] 10 mg Capsule 10 mg PO DAILY Qty: 14 2RF Rx Instructions: swallow whole with glass of water; do not open, crush, chew , break, or dissolve. Auth number: [id number] lenalidomide [Revlimid] 10 mg Capsule 10 mg PO DAILY 14 Days Qty: 14 0RF Rx Instructions: swallow whole with glass of water; do not open, crush, chew , break, or dissolve. [id number] betamethasone dipropionate 0.05 % cream 1 appl topical BID PRN (Reason: skin irritation) Qty: 45 0RF cholestyramine-aspartame [Prevalite] 4 gram powder in packet 4 g PO BID Qty: 180 3RF Rx Instructions: administer w/meal; avoid other meds within 1hr before or 4-6hr after dose Interventions: ED Discharge Assessment Last Done: 02/02/24 20:17 Discharge Date/Time: 02/02/24 20:18 Print Language: Slovak
--- NOTE | 2024-02-02 12:59 | ECG_ITS ---
Test Reason : EPIGASTRIC PAIN Blood Pressure : / mmHG Vent. Rate : 112 BPM Atrial Rate : 112 BPM P-R Int : 136 ms QRS Dur : 086 ms QT Int : 328 ms P-R-T Axes : 058 000 030 degrees QTc Int : 447 ms Sinus tachycardia Otherwise normal ECG No previous ECGs available Referred By: Sanam Escobar Electronically Signed By:SARAH BETH GRIGSBY MD
[2024-02-02 13:32] LABS: MANUAL DIFF FLAG NO
[2024-02-02 13:34] LABS: Basophils Percent Auto 0.4 % (0-2); Eosinophils Absolute Auto 0.7 X10*3/uL (0.0-0.4); Eosinophils Percent Auto 7.5 % (0-4); Hematocrit 32.7 % (37.0-47.0); Hemoglobin 11.2 g/dl (12.0-16.0); Imm Gran Abs Auto 0.04 X10*3/uL (0.00-0.03); Imm Gran Pct Auto 0.4 % (0.0-0.4); Lymphocytes Absolute Auto 0.5 X10*3/uL (1.2-4.9); Lymphocytes Percent Auto 5.6 % (20-40); Mean Corpuscular HGB Conc 34.3 g/dl (31.0-35.0); Mean Corpuscular Hemoglobin 29.1 pg (27.0-33.0); Mean Corpuscular Volume 84.9 fL (80.0-98.0); Mean Platelet Volume 9.5 fL (9.4-12.3); Monocytes Absolute Auto 0.9 X10*3/uL (0.1-1.2); Monocytes Percent Auto 9.9 % (2-11); Neutrophils Absolute Auto 6.9 x10*3/uL (2.0-8.3); Neutrophils Percent Auto 76.2 % (45-73); Platelet Count 245 X10*3/uL (160-400); Red Blood Count 3.85 X10*6/uL (4.20-5.50); Red Cell Distribution Width 12.7 % (11.0-16.0); White Blood Count 9.1 X10*3/uL (4.8-10.8)
[2024-02-02 13:35] LABS: Appearance Urine Clear; Color Urine Dark Yellow; Glucose Urine UA Negative (Negative); Leukocyte Esterase Urine Trace (Negative); Nitrite Urine Negative (Negative); UMIC TRIGGER UACC YES; Urine Blood Negative (Negative); Urine Ketones Negative (Negative); Urine Protein 100 (2+) mg/dL (Neg-Trace)
[2024-02-02 13:40] LABS: Bacteria Urine None Seen (None Seen); Hyaline Casts Urine 0-2 /LPF (0-2); RBC Urine 0-2 /HPF (0-2); Squamous Epithelial Cell Urine 0-2 /HPF (0-2); WBC Urine 0-5 /HPF (0-5)
[2024-02-02 13:51] LABS: Alanine Aminotransferase 10 U/L (0-31); Albumin Level 3.2 g/dL (3.5-5.0); Alkaline Phosphatase 60 U/L (39-117); Anion Gap 11 (12-20); Aspartate Amino Transferase 15 U/L (5-31); Bilirubin Total 0.5 mg/dL (0.0-1.0); Blood Urea Nitrogen 6 mg/dL (9-16); Calcium 8.9 mg/dL (8.4-10.2); Carbon Dioxide 27 mmol/L (22-29); Chloride 99 mmol/L (96-108); Creatinine Clr Calc Pharmacy 47.9; Estimated Glomerular Filt Rate > 60; Glucose Random 131 mg/dL (60-115); Lipase 12 U/L (8-78); Magnesium 1.5 mg/dL (1.6-2.6); Potassium 3.5 mmol/L (3.3-5.1); Sodium 133 mmol/L (135-145); Total Protein 6.8 g/dL (6.5-8.0)
[2024-02-02 13:56] LABS: Troponin-I High Sensitivity 4.2 ng/L (<3.5-17.0)
[2024-02-02 14:14] LABS: Influenza A PCR NEGATIVE (Negative); Influenza B PCR NEGATIVE (Negative); Resp Syncy Virus RNA Qual PCR NEGATIVE (Negative); SARS COV2 PCR INHOUSE NEGATIVE (Negative)
[2024-02-02 17:54] VITALS: BP 118/76; PULSE 108; RESP 16; TEMP 37.6; O2SAT 100
[2024-02-02] MEDS: Ondansetron ODT 4 MG TAB.RAPDIS TRANSLINGU (18:24)
[2024-02-02 19:09] VITALS: BP 109/71; BP 110/67; BP 116/72; PULSE 103; PULSE 108; PULSE 113
[2024-02-02 19:58] VITALS: BP 101/65; PULSE 109; RESP 16; TEMP 37.4; O2SAT 98
[2024-02-02] MEDS: traMADoL HCL 50 MG TABLET PO (20:14)
[2024-02-02 20:17] VITALS: BP 101/65; PULSE 109; RESP 16; TEMP 37.4; O2SAT 98
== END 2024-02-02 20:18 | disposition home or self-care (01) ==
PROVIDERS: Physician Assistant Medical; Emergency Provider Internal Medicine; PCP Internal Medicine
DX: R11.2 Nausea with vomiting, unspecified (principal); S46.019A Strain of muscle(s) and tendon(s) of the rotator cuff of unspecified shoulder, initial encounter; X58.XXXA Exposure to other specified factors, initial encounter; Z03.818 Encounter for observation for suspected exposure to other biological agents ruled out; E11.9 Type 2 diabetes mellitus without complications; I10 Essential (primary) hypertension; E78.00 Pure hypercholesterolemia, unspecified; Y93.9 Activity, unspecified; Y92.9 Unspecified place or not applicable; Y99.9 Unspecified external cause status
CPT/HCPCS: 0241U; 80053; 81001; 83690; 83735; 84484; 85025; 93005; 99283; 99285

== ENCOUNTER → 2024-02-02 12:59 | Outpatient (BNV) | payer OTHER, SELFPAY | PROVIDERS: Emergency Provider Internal Medicine; PCP Internal Medicine; Visit Provider Internal Medicine Cardiovascular Disease | DX: R10.13 Epigastric pain (principal); R00.0 Tachycardia, unspecified | CPT/HCPCS: 93010 ==

== ENCOUNTER 2024-02-13 10:10 | Outpatient (AMB) | payer OTHER, SELFPAY ==
--- NOTE | 2024-02-13 10:36 | MHC.PC.OV ---
Vital Signs 02/13/24 10:37 Height 4 ft 7 in Weight 126 lb 6 oz BMI 29.4 BP 114/62 Blood Pressure Location Lt brachial Position Sitting Pulse 70 Pulse Source Pulse Oximeter Pulse Oximetry (%) 99 Oxygen Delivery Method Room Air Intake Visit Reasons: Wes Huynh 01/29 Topstitcher Lockstitch Required: No Accompanied by: Self / Same As Patient Allergies No Known Allergies [No Known Allergies*] Allergy (Verified 02/13/24 10:38) Tobacco use date assessed: 11/23/23 Dental Screening Dental Screen Date: 07/10/23 HPI HPI Comments History of Present Illness Details 63 y/o female patient who presents to the clinic for EDF. Pt was admitted at [facility] on 02/02/24 for Nausea/Vomiting and B/L rotator Cuff injury/Pain. She was discharged home the same day in stable condition. Nausea/vomiting resolved. Still has some mild Pain on her both shoulders. [facility] Medical History History of bone density study Rash Common bile duct stone T8 vertebral fracture History of rib fracture Anemia Type 2 diabetes mellitus with hyperglycemia Multiple myeloma Osteoporosis Irritable bowel syndrome Hypercholesterolemia Surgical History Hypertension History of ERCP History of surgery History of section History of cholecystectomy Family History Mother Anemia CVD (cardiovascular disease) Hypertension CHF (congestive heart failure) Sister Breast cancer Father Medical history unknown Maternal Grandmother Lung cancer Sister No problems noted. Social History Household Members: Children Housing: House Alcohol intake: never Patient Tobacco Use Status: Never used Tobacco e-Cigarette/Vaping Use: Never Used Second Hand Smoke Exposure: No service: No Current occupational status: employed Cognitive needs: No Hearing needs: No Vision needs: Yes Questionnaire Thrive Questionnaire Date Thrive assessed: 07/10/23 Are you currently unemployed and looking for a job?: I choose not to answer this question ALAYNA-7 AMB Questionnaire ALAYNA-7 Date ALAYNA - 7 assessed: 07/10/23 Source: Developed by Drs. Quinn Wilcox, Kandace Flanagan, Stefano Woods and colleagues, with an educational tory from [employer]. Review of Systems Const All systems reviewed & are unremarkable except as noted in HPI and below Physical exam (Primary Care) Vital Signs: Last Vital Signs Pulse 70 02/13/24 10:37 BP 114/62 02/13/24 10:37 Pulse Ox 99 02/13/24 10:37 Oxygen Delivery Method Room Air 02/13/24 10:37 BMI result Body Mass Index 29.4 Tobacco/Smoking Status: Tobacco use Status Tobacco use date assessed 11/23/23 02/13/24 10:37 Patient Tobacco Use Status Never used Tobacco 02/13/24 10:37 e-Cigarette/Vaping Use Never Used 02/13/24 10:37 Thrive Assessment: Date of Thrive Assessment Date Thrive assessed 07/10/23 02/13/24 10:37 Const General: cooperative and no acute distress Nutritional Appearance: obese Orientation/consciousness: patient oriented x3 Resp Effort & Inspection: normal respiratory effort Auscultation: clear to auscultation bilaterally Cardio Heart sounds: S1 normal heart sound present and S2 normal heart sound present Neuro General: patient oriented x3 Extrem Other: Limited ROM of shoulders due to pain. Office Procedures Flu Questionnaire Does the patient have a severe egg allergy?: No Immunizations Fluarix Triv [id number] (PF) 45 mcg (15 mcg x 3)/0.5 mL IM syringe Performing Provider: Sherrill Beatty NP Performing Location[facility] Documented (not given) by: SUNNY Bhatt on 02/13/24 10:37 Reason Not Given: Patient Refused Coding Level of Care Code Est Pt Level 4 (13868) Diagnoses Hospital discharge follow-up Z09 Rotator cuff arthropathy of both shoulders M12.811; M12.812 Time Spent (min) 20 Assessment & Plan Assessment & Plan (1) Hospital discharge follow-up: Code(s): Z09 - Encounter for follow-up examination after completed treatment for conditions other than malignant neoplasm Plan: Stable condition N/V Resolved. (2) Rotator cuff arthropathy of both shoulders: Code(s): M12.811 - Other specific arthropathies, not elsewhere classified, right shoulder; M12.812 - Other specific arthropathies, not elsewhere classified, left shoulder Plan: NSAIDs for pain relief Rest Orders: Orders Influenza [id number] Immunization Today Z23 - Encounter for immunization
[2024-02-13 10:37] VITALS: BP 114/62; PULSE 70; O2SAT 99; BMI 29.4
== END 2024-02-13 11:16 | disposition home or self-care (01) ==
PROVIDERS: PCP Internal Medicine; Visit Provider Nurse Practitioner Family
DX: Z09 Encounter for follow-up examination after completed treatment for conditions other than malignant neoplasm (principal); M12.811 Other specific arthropathies, not elsewhere classified, right shoulder; M12.812 Other specific arthropathies, not elsewhere classified, left shoulder; Z23 Encounter for immunization

== ENCOUNTER → 2024-02-13 10:10 | Outpatient (BNVA) | payer OTHER, SELFPAY | PROVIDERS: PCP Internal Medicine; Visit Provider Nurse Practitioner Family | DX: Z09 Encounter for follow-up examination after completed treatment for conditions other than malignant neoplasm (principal); M12.811 Other specific arthropathies, not elsewhere classified, right shoulder; M12.812 Other specific arthropathies, not elsewhere classified, left shoulder | CPT/HCPCS: 90471; 99212 ==

== ENCOUNTER → 2024-03-05 10:35 | Outpatient (REF) | payer OTHER, SELFPAY ==
--- OUTSIDE RECORDS SUMMARY | 2024-03-05 10:36 | XMS_ITS ---
Author Organization [facility] Address [address] [place] [address] Care Team Providers Care Photo Specialist Name Role Phone Po Samira ALFORD Primary Care Provider José Luis Quarles Jr ALLERGIES No Known Allergies REASON FOR VISIT Patient presents today for ibs MEDICATIONS Medication SIG (Take, Route, Frequency, Duration) Notes Start Date End Date Status Calcium + D 500-1000-40 MG-UNT-MCG as directed Orally Active Revlimid 10 MG 1 capsule Orally onc e daily for two weeks then off two weeks Active Dicyclomine HCl 20MG take one tablet by mouth two to four times a day po for 30 days Active Aspirin 325 MG 1 tablet Orally Once a day Active Simvastatin 5 MG 1 tablet in the even ing Orally Once a day Active iron 1 tab Oral Active IMMUNIZATIONS Vaccine Route Administration Date Status Comme nts Influenza Unknown 10/11/2022 Refused SOCIAL HISTORY Sex Assigned At : Social History Observation Description Sex Assigned At Unknown Alcohol Screen Question Answer Notes Did you have a drink containing alcohol in the p ast year? No Points 0 Interpretation Negative VITAL SIGNS BMI 27.89 kg/m2 10/11/2022 Blood pressure systolic 000 mm Hg 10/12/19 23 Blood pressure diastolic 00 mm Hg 023 Height 56 in 10/11/2022 Temperature 97.8 degrees Fahrenheit 10/12/19 23 Weight 124.4 lbs 10/11/2022 Encounters Encounter Location Date Provider Diagnosis [facility] [address] [place] [address] 10/11/2022 José Luis Ean Jr Irritable bowel syndrome with diarrhea K58.0 and Gastroesophageal reflux disease without esophagitis K21.9 ASSESSMENTS Encounter Date Diagnosis Assessment Notes Treatment Notes Treatment Clinical Notes 10/11/2022 Irritable bowel syndrome with diarrhea (ICD-10 - K58.0) Irritable bowel syndrome material was printed 10/11/2022 Gastroesophageal ref lux disease without esophagitis (ICD-10 - K21.9) PLAN OF TREATMENT Treatment Notes Assessment Notes Irritable bowel syndrome with diarrhea I rritable bowel syndrome material was printed Next Appt Details Follow Up: 1 Year, Reason:
--- OUTSIDE RECORDS SUMMARY | 2024-03-05 10:36 | XMS_ITS ---
Author Organization [facility] Address [address] [place] [address] Care Team Providers Care Social Service Manager Name Role Phone Samira Sommer MD Primary Care Provider José Luis Quarles Jr ALLERGIES No Known Allergies REASON FOR VISIT Patient presents today for IBS MEDICATIONS Medication SIG (Take, Route, Frequency, Duration) Notes Start Date End Date Status Aspirin 325 MG 1 tablet Orally Once a day Active Calcium + D 500-1000-40 MG-UNT-MCG as directed Orally Active Revlimid 10 MG 1 capsule Orally onc e daily for two weeks then off two weeks Active iron 1 tab Oral Active Lisinopril 5 MG 1 tablet Orally Once a day for 30 day(s) Active SOCIAL HISTORY Sex Assigned At : Social History Observation Description Sex Assigned At Unknown Alcohol Screen Question Answer Notes Did you have a drink containing alcohol in the p ast year? No Points 0 Interpretation Negative VITAL SIGNS BMI 28.02 kg/m2 10/10/2023 Blood pressure systolic 000 mm Hg 10/10/19 Blood pressure diastolic 00 mm Hg 024 Height 56 in 10/10/2023 Temperature 97.1 degrees Fahrenheit 10/10/19 Weight 125 lbs 10/10/2023 Encounters Encounter Location Date Provider Diagnosis [facility] [address] [place] [address] 10/10/2023 José Luis Mckoy Jr Irritable bowel syndrome with diarrhea K58.0 and Gastroesophageal reflux disease without esophagitis K21.9 ASSESSMENTS Encounter Date Diagnosis Assessment Notes Treatment Notes Treatment Clinical Notes 10/10/2023 Irritable bowel syndrome with diarrhea (ICD-10 - K58.0) Irritable bowel syndrome material was printed 10/10/2023 Gastroesophageal ref lux disease without esophagitis (ICD-10 - K21.9) PLAN OF TREATMENT Treatment Notes Assessment Notes Irritable bowel syndrome with diarrhea I rritable bowel syndrome material was printed Next Appt Details Follow Up: 2 years, Reason:
--- NOTE | 2024-03-05 10:37 | CA_ITS ---
Transthoracic Echocardiogram Patient (Last, First, Middle): Key Rudd A Gender: Female Date of : 1960 Age: 63 Procedure Date: 03/05/2024 Procedure Type: Transthoracic Echocardiogram Location: OP Height: 139.7 cm Weight: 55.79 kg BSA: 1.43 m2 Heart Rate: 70 bpm BP: 114 / 62 mmHg General Distillery Worker: SB Referring MD: Ary Delarosa MD Symptoms: new leg edema Study Quality: Adequate ECG Rhythm: Sinus Conclusions: - The left ventricular systolic function is mildly decreased. Visually estimated LVEF about 50%. - No obvious valvular pathology seen on this study. Findings Left Ventricle Normal left ventricular cavity size. There is normal left ventricular wall thickness. The left ventricular systolic function is mildly decreased. There is no evidence of regional wall motion abnormalities. Diastolic function is normal for age. Visually estimated LVEF about 50%. LV peak global longitudinal strain -17%. Right Ventricle Normal right ventricular cavity size. There is mildly decreased right ventricular systolic function. Atria Both atria are normal in size. Aortic Valve There is a normal trileaflet aortic valve. There is no aortic valve stenosis. There is no aortic valve regurgitation. Mitral Valve The mitral valve appears normal. There is trace mitral valve regurgitation. There is no mitral valve stenosis. Pulmonic Valve The pulmonic valve is likely normal. Tricuspid Valve Normal tricuspid valve structure. There is trace tricuspid valve regurgitation. There is no evidence of pulmonary hypertension. Great Vessels The asc aorta and aortic arch are normal in size. Venous The inferior vena cava was not well visualized. Pericardium/Pleural There is no evidence of pericardial effusion. Prior Study Comparison No prior study available for comparison. Recommendations, Care & Conclusions No obvious valvular pathology seen on this study. Measurements 2D Linear Measurements IVSd: 0.72 0.6-0.9/0.6-1.0 cm LVIDd: 3.82 3.9-5.3/4.2-5.9 cm LVIDd Index: 2.67 2.4-3.2/2.2-3.1 cm/m2 LVIDs: 3.17 2.0-3.6 cm LVPWd: 0.71 0.7-1.1 cm LA Diam: 3.40 2.7-3.8/3.0-4.0 cm LAIDs Index: 2.38 1.5-2.3 cm/m2 LV Mass: 91.92 67-162/88-224 g LV Mass Index: 64.28 43-95/49-115 g/m2 LVOT Diam: 2.10 3.0+(-)1.3 cm 2D Systolic Function EF 4C: 53.50 >55% EF 2C: 53.10 >55% EF BiP: 53.60 >55% Mitral Valve MV Pk E: 0.69 MV PK A: 0.80 MV Decel Time: 167.00 E/A: 0.90 E'Lateral: 6.96 E'Medial: 5.87 E/E' Med: 11.70 E/E' Lat: 9.90 PHT: 49.00 MVA PHT: 4.49 Decel Hood: 4.12 Aortic Valve AoV Pk Jem: 0.98 AoV Pk Grad: 4.00 GUS: 2.32 LVOT LVOT Pk Jem: 0.72 LVOT Mn Jem: 0.49 LVOT VTI: 0.15 LVOT Pk Grad: 2.00 LVOT Mn Grad: 1.00 LVOT Diam: 2.10 LVOT Area: 3.46 Diastolic Function MV Pk E: 0.69 MV Pk A: 0.80 E/A: 0.90 E'Medial: 5.87 E/E' Med: 11.70 E' Laterial: 6.96 E/E' Lat: 9.90 Right Ventricle TAPSE (mm): 18.10 Tricuspid Valve TR Pk Jem: 2.25 TR Pk Grad: 20.00 RA Press: 3.00 RVSP: 23.00 Great Vessels Aorta Sinus of Valsalva: 2.70 2.0-3.5 cm Ao Asc: 2.80 2.1-3.4 cm Ao Arch: 2.40 Pulmonary Valve PV Pk Jem: 0.71 Peak PV Grad: 2.00 Updated in Other Vendor System with Status of Final Juan A Castillo MD electronically signed on 03/07/2024 1:44:43 PM with status of Final
--- OUTSIDE RECORDS SUMMARY | 2024-03-05 10:37 | XMS_ITS | Patient Health Record ---
Author Organization [facility] Address [address] [place] [address] Care Team Providers Care Structural Mill Supervisor Name Role Phone Po Samira ALFORD Primary Care Provider José Luis Quarles Jr Unavailable [phone] ALLERGIES No Known Allergies REASON FOR REFERRAL No Information MEDICATIONS Medication SIG (Take, Route, Frequency, Duration) [...] Once a day for 30 day(s) Active IMMUNIZATIONS Vaccine Route Administration Date Status Comme nts Influenza Unknown 03/21/2018 Refused Influenza Unknown 07/30/2019 Refused Influenza Unknown 10/11/2022 Refused SOCIAL HISTORY Sex Assigned At : Social History Observation Description Sex Assigned At Unknown Alcohol Screen Question Answer Notes Did you have a drink containing alcohol in the p ast year? No Points 0 Interpretation Negative PROBLEMS Problem Type ICD Code Onset Dates Problem Status W/U Status Risk SNOMED Code Notes Problem Rectal bleeding (K62.5) Active confirmed 41852970 Problem Irritable bowel syndrome with diarrhea (K58.0) Active confirmed 170569145 Problem Gastroesophageal reflux disease without esophagitis (K21.9) Active confirmed 827067124 Problem Abnormal magnetic resonance imaging of liver (R93.2) Active confirmed 123617655 VITAL SIGNS Temperature 97.1 degrees Fahrenheit 10/10/2023 Blood pressure diastolic 00 mm Hg 10/10/2023 Height 56 in 10/10/2023 Blood pressure systolic 000 mm Hg 10/10/2023 Weight 125 lbs 10/10/2023 BMI 28.02 kg/m2 10/10/2023 Encounters Encounter Location Date Provider Diagnosis [facility] [address] [place] [address] 10/10/2023 José Luis Mckoy Jr Irritable bowel syndrome with diarrhea K58.0 and Gastroesophageal reflux disease without esophagitis K21.9 ASSESSMENTS Encounter Date Diagnosis Assessment Notes Treatment Notes Treatment Clinical Notes 10/10/2023 Irritable bowel syndrome with diarrhea (ICD-10 - K58.0) Irritable bowel syndrome material was printed 10/10/2023 Gastroesophageal ref lux disease without esophagitis (ICD-10 - K21.9) PLAN OF TREATMENT Pending Test Test Name Order Date LIVER PROFILE 02/16/2014 AMYLASE 02/16/2014 CBC w DIFF 02/16/2014 SED RATE (ESR) 03/16/2014 CULTURE, BLOOD X2 03/16/2014 MRI ABD W&WO CONTRAST 03/16/2014 MRI ABD W&WO CONTRAST 08/05/2014 Future Test Test Name Order Date UPPER GI ENDOSCOPY 12/25/2013 ERCP REMOVAL OF STONES 12/25/2013 UPPER GI ENDOSCOPY 12/30/2015 COLONOSCOPY 12/30/2015 Insurance Providers Payer Name Payer Address Payer Phone Subscriber Number Group Number Insured Name Patient Relationship to Insured Coverage Start Date Coverage End Date [facility] [address] [address] [place], [place] [id number] LOPEZ CHRISTOPHER Self - patient is the insured MEDICAID OF [facility] [address] [place] [address] [id number] LOPEZ CHRISTOPHER Self - patient is the insured MEDICAL (GENERAL) HISTORY Medical History History ICD Code colonoscopy 01/28/16, normal examination followup due 2025 EGD 01/28/16, mild reflux and no H. pylo ri on biopsies hx of iron def anemia diabetes mellitus hypertension elevated cholesterol multiple myeloma Surgical History Surgery Date(Month/Year) lipoma removed from the back. cholecystectomy section breast reduction bone marrow biopsy
--- OUTSIDE RECORDS SUMMARY | 2024-03-05 10:37 | XMS_ITS ---
Author Organization [facility] Address [address] [place] [address] Care Team Providers Care Airveyor Operator Name Role Phone Samira Sommer MD Primary Care Provider José Luis Quarles Jr REASON FOR VISIT Patient presents today for an office recall/IBS Encounters Encounter Location Date Provider Diagnosis [facility] [address] [place] [address] 10/04/2022 José Luis Mckoy Jr PLAN OF TREATMENT No Information
== END ==
LOC: HO.CARD 10:35
PROVIDERS: PCP Internal Medicine; Visit Provider Internal Medicine
DX: C90.00 Multiple myeloma not having achieved remission (principal); M79.89 Other specified soft tissue disorders
CPT/HCPCS: 93306; 93356

== ENCOUNTER → 2024-03-05 10:37 | Outpatient (BNV) | payer OTHER, SELFPAY | PROVIDERS: PCP Internal Medicine; Visit Provider Internal Medicine | DX: R60.0 Localized edema (principal) | CPT/HCPCS: 93306; 93356 ==

== ENCOUNTER 2024-03-21 09:43 | Outpatient (AMB) | payer OTHER, SELFPAY ==
[2024-03-21 09:43] VITALS: BP 130/84; PULSE 86; O2SAT 99; BMI 27.6
--- NOTE | 2024-03-21 09:43 | MHC.PC.OV ---
Vital Signs 03/21/24 09:43 Height 4 ft 8 in Weight 123 lb 4 oz BMI 27.6 BP 130/84 Blood Pressure Location Lt brachial Position Sitting Pulse 86 Pulse Source Pulse Oximeter Pulse Oximetry (%) 99 Oxygen Delivery Method Room Air Intake Visit Reasons: 6mth f/u Allergies No Known Allergies [No Known Allergies*] Allergy (Verified 03/21/24 09:49) Tobacco use date assessed: 03/21/24 Dental Screening Dental Screen Date: 03/21/24 Did you have a dental visit in the last 12 months?: Yes Did you have a dental problem in the last 6 months where you did not have access to dental care?: No Was dental information given to patient?: Patient has dentist HPI 6m f/u HPI Details The patient is a 63-year-old female presenting with a primary concern related to dehydration and associated edema. She recently experienced nausea, vomiting, and diarrhea, which led to dehydration severe enough to require hospitalization. Following the dehydration episode, she noted significant changes in her skin, describing it as shriveled and peeling, which she managed with moisturizing creams that provided significant relief. During the same period, the patient experienced exacerbation of rotator cuff arthropathy in both shoulders with limited range of motion, requiring modification of daily activities. Additionally, she reported a history of sciatica with bilateral leg pain and noted swelling consistent with edema, for which she raised concerns during the visit. In February, the patient's blood work indicated anemia, likely exacerbated by recent gastrointestinal symptoms, and she reported a decline in physical performance and periodic breathlessness, especially upon exertion. Her history also includes hypertension managed with lisinopril, and she has been undergoing treatment for multiple myeloma, which has included chemotherapy and other protocols without specifying adverse effects or complications. Concerns about bone health were addressed previously, with recent imaging indicating reduced bone density and a decision to adjust current treatment plans including stopping an unspecified injection treatment. [facility] Medical History History of bone density study Rash Common bile duct stone T8 vertebral fracture History of rib fracture Anemia Type 2 diabetes mellitus with hyperglycemia Multiple myeloma Osteoporosis Irritable bowel syndrome Hypercholesterolemia Surgical History Hypertension History of ERCP History of surgery History of section History of cholecystectomy Family History Mother Anemia CVD (cardiovascular disease) Hypertension CHF (congestive heart failure) Sister Breast cancer Father Medical history unknown Maternal Grandmother Lung cancer Sister No problems noted. Social History Household Members: Children Housing: House Alcohol intake: never Patient Tobacco Use Status: Never used Tobacco e-Cigarette/Vaping Use: Never Used Second Hand Smoke Exposure: No service: No Current occupational status: employed Cognitive needs: No Hearing needs: No Vision needs: Yes Questionnaire PHQ-9 Over the last 2 weeks, how often have you been bothered by any of the following problems? 1. Little interest or pleasure in doing things: not at all 2. Feeling down, depressed, or hopeless: not at all 3. Trouble falling or staying asleep, or sleeping too much: not at all 4. Feeling tired or having little energy: not at all 5. Poor appetite or overeating: not at all 6. Feeling bad about yourself - or that you are a failure or have let yourself or your family down: not at all 7. Trouble concentrating on things, such as reading the newspaper or watching television: not at all 8. Moving or speaking so slowly that other people could have noticed. Or the opposite - being so fidgety or restless that you have been moving around a lot more than usual: not at all 9. Thoughts that you would be better off or of hurting yourself in some way: not at all Total score: 0 Depression Screening Interpretation: Negative Depression Screening Done: Yes Source: Developed by Drs. Quinn Wilcox, Kandace Flanagan, Stefano Woods and colleagues, with an educational tory from [employer]. Thrive Questionnaire Date Thrive assessed: 03/21/24 I am a: Patient What is your living situation today?: I have a steady place to live Within the past 12 months, did the food you bought not last and you didn't have the money to get more?: Never true Within the past 12 months, did you worry whether your food would run out before you got money to buy more?: Never true Do you have trouble paying for medicines?: No Do you have trouble getting transportation to medical appointments?: No Do you have trouble paying your heating and electricity bill?: No Do you have trouble taking care of your child, family member or friend?: No Do you have trouble with day-to-day activities such as bathing, preparing meals, shopping, managing finances, etc.?: No Are you currently unemployed and looking for a job?: I choose not to answer this question Are you interested in more education?: No THRIVE Score: 0 AUDIT C Alcohol Use Questionnaire (AUDIT-C) 1. How often do you have a drink containing alcohol?: Never 3. How often do you have six or more drinks on one occasion?: Never Total Score: 0 ALAYNA-7 AMB Questionnaire ALAYNA-7 Date ALAYNA - 7 assessed: 03/21/24 Feeling nervous, anxious, or on edge: 0 = Not at all Not being able to stop or control worryin = Not at all Worrying too much about different things: 0 = Not at all Trouble relaxin = Not at all Being so restless that it is hard to sit still: 0 = Not at all Becoming easily annoyed or irritable: 0 = Not at all Feeling afraid as if something awful might happen: 0 = Not at all Total ALAYNA-7 score (0-4 normal; 5-9 mild; 10-14 moderate; 15-21 severe): 0 Source: Developed by Drs. Quinn Wilcox, Kandace Flanagan, Stefano Woods and colleagues, with an educational tory from [employer]. Physical exam (Primary Care) Vital Signs: Last Vital Signs Pulse 86 03/21/24 09:43 BP 130/84 03/21/24 09:43 Pulse Ox 99 03/21/24 09:43 Oxygen Delivery Method Room Air 03/21/24 09:43 BMI result Body Mass Index 27.6 Tobacco/Smoking Status: Tobacco use Status Tobacco use date assessed 03/21/24 03/21/24 09:50 Patient Tobacco Use Status Never used Tobacco 03/21/24 09:50 e-Cigarette/Vaping Use Never Used 03/21/24 09:50 PHQ-9: PHQ-9 Score PHQ-9: Total score 0 03/21/24 10:05 Depression Screening Interpretation: Negative Thrive Assessment: Date of Thrive Assessment Date Thrive assessed 03/21/24 03/21/24 09:50 Const General: alert; No acute distress Eyes Conjunctivae: conjunctivae normal Resp Auscultation: clear to auscultation bilaterally Cardio Rate: regular rate Rhythm: regular rhythm GI Inspection: Yes normal to inspection Extrem General: Yes normal to inspection and No edema Results AMB Hemoglobin A1c AMB Hemoglobin A1c 5.5 % Last Edit by Queta Salas CMA on 03/21/24 09:53 Results Reviewed Results Reviewed: Laboratory Last Values Hgb A1c (Clinic) 5.5 % (4.0-6.0) 03/21/24 09:51 Coding Level of Care Code Est Pt Level 4 (78074) Complex EM visit Add On G2211 Diagnoses Type 2 diabetes mellitus with hyperglycemia, without long-term current use of insulin E11.65 Diabetes mellitus [facility] insulin use: without [facility] use Essential hypertension I10 Hypertension type: essential hypertension Hypercholesterolemia E78.00 Multiple myeloma in remission C90.01 Multiple myeloma remission status: in remission Assessment & Plan Assessment & Plan (1) Type 2 diabetes mellitus with hyperglycemia: Comment: Eye and lasik Code(s): E11.65 - Type 2 diabetes mellitus with hyperglycemia Category: Medical Qualifiers: Diabetes mellitus medical terminologist insulin use: without medical terminologist use Qualified Code(s): E11.65 - Type 2 diabetes mellitus with hyperglycemia (2) Hypertension: Code(s): I10 - Essential (primary) hypertension Category: Surgical Qualifiers: Hypertension type: essential hypertension Qualified Code(s): I10 - Essential (primary) hypertension (3) Hypercholesterolemia: Code(s): E78.00 - Pure hypercholesterolemia, unspecified Category: Medical (4) Multiple myeloma: Code(s): C90.00 - Multiple myeloma not having achieved remission Category: Medical Qualifiers: Multiple myeloma remission status: in remission Qualified Code(s): C90.01 - Multiple myeloma in remission Plan - Follow-up on the patient's hydration status is essential, emphasizing the continuation of adequate fluid intake to prevent dehydration. - Encourage the patient to monitor the edema and employ leg elevation to encourage venous return, with consideration of cardiac, renal, and hepatic evaluation if swelling persists. - Continue current antihypertensive medication lisinopril) with regular monitoring of blood pressure. - Reinforce dietary modification to support anemia improvement, considering continuing current supplements of calcium and iron. - Advise routine blood work to monitor anemia and renal function. - Follow up on multiple myeloma management with the oncology team, including reviewing the necessity of continuing or altering current chemotherapy treatment. - Encourage the use of emollients to manage skin desquamation effectively and prevocational/rehabilitation counselor on additional measures if needed. - Acknowledge cessation of the bone density injection, monitoring effects on bone health, and consider related interventions if warranted. - Address the patient?s concern about sciatica through evaluating physical therapy or pain management if symptoms persist. - Reassess rotator cuff arthropathy and recommend physical therapy evaluation if range of motion does not improve. - Discuss preventative measures against viral illnesses with emphasis on the importance of personal protective equipment in her work environment. Orders: Orders AMB Hemoglobin A1c Today Z13.9 - Encounter for screening, unspecified Complete Blood Count Auto Diff Today E11.65 - Type 2 diabetes mellitus with hyperglycemia Comprehensive Met. Panel Today E11.65 - Type 2 diabetes mellitus with hyperglycemia Free T4 (Free Thyroxine) Today E11.65 - Type 2 diabetes mellitus with hyperglycemia Thyroid Stimulating Hormone Today E11.65 - Type 2 diabetes mellitus with hyperglycemia Lipid Panel Today E11.65 - Type 2 diabetes mellitus with hyperglycemia, E78.00 - Pure hypercholesterolemia, unspecified Creatinine Urine Today E11.65 - Type 2 diabetes mellitus with hyperglycemia Microalbumin, Random (w Creat) Today E11.65 - Type 2 diabetes mellitus with hyperglycemia Ferritin Today E11.65 - Type 2 diabetes mellitus with hyperglycemia Reticulocyte Count Today E11.65 - Type 2 diabetes mellitus with hyperglycemia Hemoglobin A1c Today E11.65 - Type 2 diabetes mellitus with hyperglycemia Vitamin B12 and Folate Today E11.65 - Type 2 diabetes mellitus with hyperglycemia Vitamin D 25-OH Total Today E11.65 - Type 2 diabetes mellitus with hyperglycemia IRON PROFILE Today E11.65 - Type 2 diabetes mellitus with hyperglycemia
--- OUTSIDE RECORDS SUMMARY | 2024-03-21 10:34 | XMS_ITS ---
Author Organization [facility] Address [address] [place] [address] Care Team Providers Care Physicist Astrophysics Name Role Phone Samira Sommer MD Primary Care Provider José Luis Quarles Jr [phone] REASON FOR VISIT Patient presents today for an office recall/IBS Encounters Encounter Location Date Provider Diagnosis [facility] [address] [place] [address] 10/04/2022 José Luis Mckoy Jr PLAN OF TREATMENT No Information
--- OUTSIDE RECORDS SUMMARY | 2024-03-21 10:34 | XMS_ITS | Patient Health Record ---
Author Organization [facility] Address [address] [place] [address] Care Team Providers Care Release Specialist Name Role Phone Po Samira ALFORD Primary Care Provider José Luis Quarles Jr Unavailable ALLERGIES No Known Allergies REASON FOR REFERRAL [...] Notes Problem Rectal bleeding (K62.5) Active confirmed 48965445 Problem Irritable bowel syndrome with diarrhea (K58.0) Active confirmed 513046459 Problem Gastroesophageal reflux disease without esophagitis (K21.9) Active confirmed 723239686 Problem Abnormal magnetic resonance imaging of liver (R93.2) Active confirmed [id number] VITAL SIGNS Temperature 97.1 degrees Fahrenheit 10/10/2023 Blood pressure diastolic 00 mm Hg 10/10/2023 Height 56 in 10/10/2023 Blood pressure systolic 000 mm Hg 10/10/2023 Weight 125 lbs 10/10/2023 BMI 28.02 kg/m2 10/10/2023 Encounters Encounter Location Date Provider Diagnosis [facility] [address] [place] [address] 10/10/2023 José Luis Mckoy Jr Irritable bowel [...] Insured Coverage Start Date Coverage End Date [facility] [employer] [facility] [address] [address] [place], [place] [id number] LOPEZ CHRISTOPHER Self - patient is the insured MEDICAID OF [facility] [address] [place] [address] [id number] LOPEZ CHRISTOPHER Self - patient is the [...]
--- OUTSIDE RECORDS SUMMARY | 2024-03-21 10:34 | XMS_ITS ---
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
== END 2024-03-21 10:22 | disposition home or self-care (01) ==
PROVIDERS: PCP Internal Medicine; Visit Provider Internal Medicine
DX: E11.65 Type 2 diabetes mellitus with hyperglycemia (principal); I10 Essential (primary) hypertension; E78.00 Pure hypercholesterolemia, unspecified; C90.01 Multiple myeloma in remission; Z13.9 Encounter for screening, unspecified

== ENCOUNTER → 2024-03-21 09:43 | Outpatient (BNVA) | payer OTHER, SELFPAY | PROVIDERS: PCP Internal Medicine; Visit Provider Internal Medicine | DX: E11.65 Type 2 diabetes mellitus with hyperglycemia (principal); E78.00 Pure hypercholesterolemia, unspecified; R60.9 Edema, unspecified; I10 Essential (primary) hypertension; C90.01 Multiple myeloma in remission | CPT/HCPCS: 83036; 99212 ==

== ENCOUNTER 2024-06-20 09:38 | Outpatient (AMB) | payer OTHER, SELFPAY ==
[2024-06-20 09:42] VITALS: BP 142/82; PULSE 89; TEMP 36.2; O2SAT 97; BMI 28.1
--- NOTE | 2024-06-20 09:42 | A.OFFPC_ITS ---
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: No Accompanied by: Self / Same As Patient Allergies No Known Allergies [No Known Allergies*] Allergy (Verified 06/20/24 09:49) Tobacco use date assessed: 03/21/24 Dental Screening Dental Screen Date: 03/21/24 [facility] Medical History History of bone density study Rash Common bile duct stone T8 vertebral fracture History of rib fracture Anemia Type 2 diabetes mellitus with hyperglycemia Multiple myeloma Osteoporosis Irritable bowel syndrome Hypercholesterolemia Surgical History Hypertension History of ERCP History of surgery History of section History of cholecystectomy Family History Mother Anemia CVD (cardiovascular disease) Hypertension CHF (congestive heart failure) Sister Breast cancer Father Medical history unknown Maternal Grandmother Lung cancer Sister No problems noted. Social History Household Members: Children Housing: House Alcohol intake: never Patient Tobacco Use Status: Never used Tobacco e-Cigarette/Vaping Use: Never Used Second Hand Smoke Exposure: No service: No Current occupational status: employed Cognitive needs: No Hearing needs: No Vision needs: Yes Questionnaire Thrive Questionnaire Date Thrive assessed: 03/21/24 ALAYNA-7 AMB Questionnaire ALAYNA-7 Date ALAYNA - 7 assessed: 03/21/24 Source: Developed by Drs. Quinn Wilcox, Kandace Flanagan, Stefano Woods and colleagues, with an educational tory from [employer]. Physical exam (Primary Care) Vital Signs: Last Vital Signs Temp 97.1 F 06/20/24 09:42 Pulse 89 06/20/24 09:42 BP 142/82 H 06/20/24 09:42 Pulse Ox 97 06/20/24 09:42 Oxygen Delivery Method Room Air 06/20/24 09:42 BMI result Body Mass Index 28.1 Tobacco/Smoking Status: Tobacco use Status Tobacco use date assessed 03/21/24 06/20/24 09:42 Patient Tobacco Use Status Never used Tobacco 06/20/24 09:42 e-Cigarette/Vaping Use Never Used 06/20/24 09:42 Thrive Assessment: Date of Thrive Assessment Date Thrive assessed 03/21/24 06/20/24 09:42 Const General: alert; No acute distress HENMT Outer ear/TM images: 2 1. Right tympanic membrane perforation with dried blood around Eyes Conjunctivae: conjunctivae normal Resp Auscultation: clear to auscultation bilaterally Cardio Rate: regular rate Rhythm: regular rhythm GI Inspection: Yes normal to inspection Extrem General: Yes normal to inspection and No edema Coding Level of Care Code Est Pt Level 4 (89025) Complex EM visit Add On G2211 Diagnoses Type 2 diabetes mellitus with hyperglycemia, without long-term current use of insulin E11.65 Diabetes mellitus [facility] insulin use: without [facility] use Essential hypertension I10 Hypertension type: essential hypertension Hypercholesterolemia E78.00 Multiple myeloma in remission C90.01 Multiple myeloma remission status: in remission Right otitis media H66.91 Assessment & Plan Assessment & Plan (1) Type 2 diabetes mellitus with hyperglycemia: Comment: Eye and lasik Code(s): E11.65 - Type 2 diabetes mellitus with hyperglycemia Category: Medical Qualifiers: 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 Hemoglobin A1c goal of less than 6.5 patient is diet controlled (2) Hypertension: Code(s): I10 - Essential (primary) hypertension Category: Surgical Qualifiers: Hypertension type: essential hypertension Qualified Code(s): I10 - Essential (primary) hypertension Plan: Continue with blood pressure medication. Decrease salt intake and exercise on lisinopril 5 mg once a day (3) Hypercholesterolemia: Code(s): E78.00 - Pure hypercholesterolemia, unspecified Category: Medical Plan: Avoid fried foods, chicken skin, eggs, butter margarine, pastries and meat. Be it pork or beef they have a lot of cholesterol April 2023 last blood work LDL goal of less than 100 and triglyceride of less than 150 diet control (4) Multiple myeloma: Code(s): C90.00 - Multiple myeloma not having achieved remission Category: Medical Qualifiers: Multiple myeloma remission status: in remission Qualified Code(s): C 90.01 - Multiple myeloma in remission Plan: Continue to follow-up with Hematology-Oncology. (5) Right otitis media: Code(s): H66.91 - Otitis media, unspecified, right ear Category: Medical Plan: Right TM perforated trying to get ear nose and throat referral for her to get a schedule. Plan History of Present Illness The patient is a 63-year-old female presenting with a follow-up for existing medical conditions including hypertension, diabetes mellitus, and hyperlipidemia, with a history of multiple myeloma currently in remission. The recent acute episode involved ear drainage, cough, congestion, and difficulty hearing secondary to otitis media. She experienced initially worsening symptoms including significant congestion and green/red sputum production, leading to antibiotic therapy. Health Maintenance - Mammogram: Up to date, scheduled for July 2023 - Bone density scan: Scheduled for September 2023 - Last cholesterol test: April 2023, LDL goal under 100, triglycerides under 150, controlled through diet Social History - Discussed diet control for diabetes and cholesterol management. - Patient did not discuss employment, smoking, alcohol use, or specific lifestyle habits impacting health beyond diet control. Review of Systems - Respiratory: Reports previous difficulty breathing while lying down, congestion, and production of discolored sputum. - Ears, Nose, Throat: Reports ear drainage, difficulty hearing, previous congestion. - General: Denies fever or chills associated with respiratory symptoms. Physical Exam - Ears, Nose, Throat- Examination of the throat conducted, noted patient's ability to open mouth and protrude tongue. Results - Labs: Hemoglobin at 11.3 (anemia), normal platelets, mild leukopenia - Last hemoglobin A1c recorded at 5.5 in March Plan Management for ongoing conditions involves continuing current medications for hypertension and lipid levels, with diet control for cholesterol and diabetes management. Oncology follow-up remains pivotal for her multiple myeloma in remission. Her anemia and leukopenia are monitored as part of her regular lab follow-up. Recent ear symptoms from otitis media have been addressed with antibiotics, and ENT consultation is arranged to ensure resolution. Patient was informed and verbally consented to the use of an ambient scribe for clinic note documentation during this visit. Discussion Notes I discussed the current management plans for her hypertension, diabetes, and lipid levels, highlighting the importance of maintaining her current medications and dietary control. We conversed about her recent ear infection treated with antibiotics and steps taken to ensure prescription accuracy after an initial pharmacy error. She has been informed about the necessity of following up with ENT for her persistent hearing issue. I provided reassurance regarding her controlled diabetes and encouraged adherence to scheduled health maintenance examinations. Anticipatory guidance included the importance of managing anemia and monitoring for any symptoms necessitating urgent care. Patient Instructions - Continue taking lisinopril 5 mg once daily for hypertension. - Maintain dietary control to keep cholesterol and diabetes managed. - Follow up with ENT as advised for ear symptoms. - Adhere to scheduled mammograms and bone density tests. - Monitor symptoms of ear drainage or hearing changes, and seek care if they worsen. - Follow oncology recommendations for multiple myeloma and keep regular appointments.
--- OUTSIDE RECORDS SUMMARY | 2024-06-20 10:42 | XMS_ITS ---
Author Organization [facility] Address [address] [place] [address] Care Team Providers Care Field Service Poultry Technician Name Role Phone Samira Sommer MD Primary Care Provider Sánchez Mckoy Jr, José Luis Infante REASON FOR VISIT ibs symptoms/asking if dicyclomine can be prescribed again Medications Medication SIG (Take, Route, Fr equency, Duration) Notes Start Date End Date Status Dicyclomine HCl 20 MG 1 tablet Orally 2- 4 times a day 05/08/2024 Active Encounters Encounter Location Date Provider Diagnosis [facility] [address] [place] [address] 05/07/2024 José Luis Mckoy Jr Plan Of Treatment Medication Medication Name Sig Start Date Stop Date Notes Dicyclomine HCl 20 MG 1 tablet Orally 2-4 times a day 04/20 Progress Notes * LOPEZ CHRISTOPHERDOB: 2 (63 yo F)Acc No.[id number]:05/07/2024 Patient:?LOPEZ CHRISTOPHER :1960???Age:63 Y???Sex:Female Address:[address] [address] * Refills? Start Dicyclomine HCl Tablet, 20 MG, Orally, 120, 1 tablet, 2-4 times a day, Refills=6 * true * Date:? Generated for Printi vivian/Frankling/eTransmitting on:?06/20/2024 10:42 AM EDT
--- OUTSIDE RECORDS SUMMARY | 2024-06-20 10:42 | XMS_ITS ---
Author Organization [facility] Address [address] [place] [address] Care Team Providers Care Combatant Diver Qualified Name Role Phone Samira Sommer MD Primary Care Provider José Luis Quarles Jr Unavailable [phone] Allergies No Known Allergies REASON FOR VISIT Patient presents today for IBS Medications Medication SIG (Take, Route, Frequency, Duration) Notes [...] Once a day for 30 day(s) Active Social History Alcohol Screen Question Answer Notes Did you have a drink containing alcohol in the p ast year? No Points 0 Interpretation Negative Vital Signs Temperature 97.1 degrees Fahrenheit 10/10/19 24 Blood pressure systolic 000 mm Hg 10/10/19 Blood pressure diastolic 00 mm Hg 024 Height 56 in 10/10/2023 Weight 125 lbs 10/10/2023 BMI 28.02 kg/m2 10/10/2023 Encounters Encounter Location Date Provider Diagnosis [facility] [address] [place] [address] 10/10/2023 José Luis Mckoy Jr Irritable bowel syndrome with diarrhea K58.0 and Gastroesophageal reflux disease without esophagitis K21.9 Assessments Encounter Date Diagnosis (ICD Code) Assessment Notes Treatment Notes Treatment Clinical Notes Section Notes 10/10/2023 Irritable bowel syndrome with diarrhea (ICD-10 - K58.0) Irritable bowel syndrome material was printed We discussed irritable bowel syndrome today. We discussed treatment of diarrhea with cholestyramine. We recommended not taking it within 2 hours of other medications. We discussed gastroesophageal reflux disease today. We discussed diet, lifestyle modifications, and weight management regarding the treatment of reflux. At this time she is doing well and we will schedule followup office visit in 2 years, sooner if she has problems. At that time, she will be due for followup colonoscopy. 10/10/2023 Gastroesophageal reflux disease without esophagitis (ICD-10 - K21.9) We discussed irritable bowel syndrome today. We discussed treatment of diarrhea with cholestyramine. We recommended not taking it within 2 hours of other medications. We discussed gastroesophageal reflux disease today. We discussed diet, lifestyle modifications, and weight management regarding the treatment of reflux. At this time she is doing well and we will schedule followup office visit in 2 years, sooner if she has problems. At that time, she will be due for followup colonoscopy. Plan Of Treatment Treatment Notes Assessment Notes Irritable bowel syndrome with diarrhea I rritable bowel syndrome material was printed Next Appt Details Follow Up: 2 years, Reason: Progress Notes * KEY CHRISTOPHERDOB: 2 (62 yo F)Acc No.[id number]:10/10/2023 Progress Notes Patient:?KEY CHRISTOPHER Provider:?José Luis Mckoy MD :1960???Age:62 Y???Sex:Female D ate:10/10/2023 Address: [address] [facility], [id number] Pcp:Samira Sommer MD Subjective: * Chief Complaints: * ???1. Patient presents today for IBS. * HPI: ???New symptom(s):? Key is a 62-year-old woman seen today in followup of IBS and gastroesophageal reflux disease. She last seen in September of 2022. Since that time, she reports she's generally been doing well. IBS symptoms are very well controlled on diet and she has not had to take dicyclomine. She was prescribed Prevalite by her primary care provider. She finds this seems to work best when she takes at night in helping with her a.m. diarrheal symptoms. ?Reflux symptoms are under good control on diet as well. She has not had use proton pump inhibitors or H2 blockers. She continues to watch her weight and tries to follow a high-fiber diet. ?She is up-to-date on colorectal cancer screening and will be due for followup in January of 2026. We reviewed this today. * Medical History:?Colonoscopy 01/28/16, normal examination followup due 2025, EGD 01/28/16, mild reflux and no H. pylori on biopsies, Hx of iron def anemia, Diabetes mellitus, Hypertension, Elevated cholesterol, Multiple myeloma. * Surgical History:?lipoma rem vilma from the back. , cholecystectomy , section , breast reduction , bone marrow biopsy . * Family History:?Father: dece ased.?Mother: , diagnosed with Heart disease.?Siblings: alive, breast cancer/sister.? no known hx of colon cancer,polyps or liver ds. * Social History:?Tobacco Use:?Tobacco Use/Smoking?Are you a: nonsmoker.?Drugs/Alcohol:?Alcohol Screen?Did you have a drink containing alcohol in the past year??No,?Points?0,?Interpretation?Negative.?Miscellaneous:?Marital status: single. 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 * Medications:?Taking Lisinopr il 5 MG Tablet 1 tablet Orally Once a day, Taking iron 1 tab Oral , Taking Aspirin 325 MG Tablet 1 tablet Orally Once a day, Taking Revlimid 10 MG Capsule 1 capsule Orally once daily for two weeks then off two weeks, Taking Calcium + D 500-1000-40 MG-UNT-MCG Tablet Chewable as directed Orally , Discontinued Simvastatin 5 MG Tablet 1 tablet in the evening Orally Once a day, Discontinued Dicyclomine HCl 20MG Tablet take one tablet by mouth two to four times a day po , Medication List reviewed and reconciled with the patient * Allergies:?N.K.D.A. Objective: * Vitals:?Wt: 125 lbs, Ht: 56 in, BMI:28.02 Index, BP: 000/00 mm Hg, Temp: 97.1. * Examination: ???General Examination: ???On examination today, she appears well. Skin is anicteric. Lungs are clear. Heart shows regular rate and rhythm. Abdomen is soft without focal masses or tenderness. Extremities are without edema. Assessment: * Assessment: 1.?Irritable bowel syndrome with diarrhea - K58.0 (Primary)?2.?Gastroesophageal reflux disease without esophagitis - K21.9? We discussed irritable bowel syndrome today. We discussed treatment of diarrhea with cholestyramine. We recommended not taking it within 2 hours of other medications. We discussed gastroesophageal reflux disease today. We discussed diet, lifestyle modifications, and weight management regarding the treatment of reflux. At this time she is doing well and we will schedule followup office visit in 2 years, sooner if she has problems. At that time, she will be due for followup colonoscopy. Plan: * Treatment: * Procedure Codes:?3017F COLOR ECTAL CA SCREEN DOC REV, G9903 Pt scrn tbco id as non user, G9744 PATIENT NOT ELIG D/T ACTIVE DX HTN * Preventive Medicine:? ??Counseling:?Care goal follow-up plan:?Above Normal BMI Follow-up?Giving encouragement to exercise,?BMI management provided?Yes.? * Follow Up:?2 years * * Sign off status: Completed true * Provider:?oJsé Luis Mckoy MD Date:?0 10/10/2023 Generated for [facility] park/Abdoul/eTdottiesmitting on:?06/20/2024 10:42 AM EDT History and Physical Notes * HPI (History of Present Illness) Category Sub-Category Detail Notes Category Not es New symptom(s) Key is a 62-year-old woman seen today in followup of IBS and gastroesophageal reflux disease. She last seen in September of 2022. Since that time, she reports she's generally been doing well. IBS symptoms are very well controlled on diet and she has not had to take dicyclomine. She was prescribed Prevalite by her primary care provider. She finds this seems to work best when she takes at night in helping with her a.m. diarrheal symptoms. Reflux symptoms are under good control on diet as well. She has not had use proton pump inhibitors or H2 blockers. She continues to watch her weight and tries to follow a high-fiber diet. She is up-to-date on colorectal cancer screening and will be due for followup in January of 2026. We reviewed this today. Examination Category Sub-Category Detail Notes Category Not es General Examination On exami nation today, she appears well. Skin is anicteric. Lungs are clear. Heart shows regular rate and rhythm. Abdomen is soft without focal masses or tenderness. Extremities are without edema.
--- OUTSIDE RECORDS SUMMARY | 2024-06-20 10:42 | XMS_ITS | Patient Health Record ---
Author Organization [facility] Address [address] [place] [address] Care Team Providers Care Meat And Poultry Inspector Name Role Phone Samira Sommer MD Primary Care Provider José Luis Quarles Jr Unavailable [phone] Allergies No Known Allergies Reason For Referral No Information Medications Medication SIG (Take, Route, Frequency, Duration) Notes Start Date End Date Status Dicyclomine HCl 20 MG 1 tablet Orally 2- 4 times a day 05/08/2024 Active Aspirin 325 MG 1 tablet Orally Once a day Active Calcium + D 500-1000-40 MG-UNT-MCG as directed Orally Active Revlimid 10 MG 1 capsule Orally onc e daily for two weeks then off two weeks Active iron 1 tab Oral Active Lisinopril 5 MG 1 tablet Orally Once a day for 30 day(s) Active Immunizations Vaccine Route Administration Date Status Comme nts Influenza Unknown 03/21/2018 Refused Influenza Unknown 07/30/2019 Refused Influenza Unknown 10/11/2022 Refused Social History Alcohol Screen Question Answer Notes Did you have a drink containing alcohol in the p ast year? No Points 0 Interpretation Negative Problems Problem Type SNOMED Code ICD Code Onset Dates Problem Status W/U Status Risk Notes Problem 91183089 Rectal bleeding (K62.5) Active confirmed Problem 729681429 Irritable bowel syndrome with diarrhea (K58.0) Active confirmed Problem 682888536 Gastroesophageal reflux disease without esophagitis (K21.9) Active confirmed Problem 497547232 Abnormal magneti c resonance imaging of liver (R93.2) Active confirmed Vital Signs Temperature 97.1 degrees Fahrenheit 10/10/2023 Blood pressure diastolic 00 mm Hg 10/10/2023 Height 56 in 10/10/2023 Blood pressure systolic 000 mm Hg 10/10/2023 Weight 125 lbs 10/10/2023 BMI 28.02 kg/m2 10/10/2023 Encounters Encounter Location Date Provider Diagnosis [facility] [address] [place] [address] 10/10/2023 José Luis Mckoy Jr Irritable bowel syndrome with diarrhea K58.0 and Gastroesophageal reflux disease without esophagitis K21.9 [facility] [address] [place] [address] 05/07/2024 José Luis Mckoy Jr Assessments Encounter Date Diagnosis (ICD Code) Assessment [...] due for followup colonoscopy. Plan Of Treatment Pending Test Test Name Order Date LIVER [...] Insured Coverage Start Date Coverage End Date [facility] [address] [address] [place], [place] [id number] [phone] [id number] LOPEZ CHRISTOPHER Self - patient is the insured MEDICAID OF [employer] [facility] [address] [place] [address] [id number] LOPEZ CHRISTOPHER Self - patient is the insured Medical (General) History Medical History History ICD Code colonoscopy 01/28/16, normal examination followup due 2025 EGD 01/28/16, mild reflux and no H. pylo ri on biopsies hx of iron def anemia diabetes mellitus hypertension elevated cholesterol multiple myeloma Surgical History Surgery Date(Month/Year) lipoma removed from the back. cholecystectomy section breast reduction bone marrow biopsy
== END 2024-06-20 10:19 | disposition home or self-care (01) ==
LOC: HO.HMCH 09:39
PROVIDERS: PCP Internal Medicine; Visit Provider Internal Medicine
DX: E11.65 Type 2 diabetes mellitus with hyperglycemia (principal); I10 Essential (primary) hypertension; E78.00 Pure hypercholesterolemia, unspecified; C90.01 Multiple myeloma in remission; H66.91 Otitis media, unspecified, right ear

== ENCOUNTER → 2024-06-20 09:38 | Outpatient (BNVA) | payer OTHER, SELFPAY | PROVIDERS: PCP Internal Medicine; Visit Provider Internal Medicine | DX: E11.65 Type 2 diabetes mellitus with hyperglycemia (principal); E78.00 Pure hypercholesterolemia, unspecified; I10 Essential (primary) hypertension; H66.91 Otitis media, unspecified, right ear; C90.01 Multiple myeloma in remission | CPT/HCPCS: 83036; 99212 ==

== ENCOUNTER 2024-07-10 06:06 | Outpatient (REF) | payer OTHER, SELFPAY ==
--- OUTSIDE RECORDS SUMMARY | 2024-07-10 06:08 | XMS_ITS ---
Author Organization [facility] Address [address] [place] [address] Care Team Providers Care Senior Investment Manager Name Role Phone Samira Sommer MD Primary Care Provider José Luis Quarles Jr Unavailable Allergies No Known Allergies REASON FOR VISIT [...] 10/10/2023 Encounters Encounter Location Date Provider Diagnosis [facility] [address] [place] [address] 10/10/2023 José Luis Mckoy Jr Irritable bowel [...] * KEY CHRISTOPHERDOB: 2 (62 yo F)Acc No.[id number]:10/10/2023 Progress Notes Patient:?KEY CHRISTOPHER Provider:?José Luis Mckoy MD :1960???Age:62 Y???Sex:Female D ate:10/10/2023 Address: [address] [facility], [facility] Pcp:Samira Sommer MD Subjective: * Chief Complaints: [...] single. 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 * Medications:?Taking Lisinopr il [...] * Sign off status: Completed true * Provider:?José Luis Mckoy MD Date:?0 10/10/2023 Generated for [facility]/Abdoul/eTdottiesmitting on:?07/10/2024 06:08 AM EDT History and Physical Notes * [...]
--- OUTSIDE RECORDS SUMMARY | 2024-07-10 06:08 | XMS_ITS ---
Author Organization [facility] Address [address] [place] [address] Care Team Providers Care Group Home Supervisor Name Role Phone Samira Sommer MD Primary Care Provider Sánchez Mckoy Jr, José Luis Infante REASON FOR VISIT ibs symptoms/asking if dicyclomine can be prescribed again Medications Medication SIG (Take, Route, Fr equency, Duration) Notes Start Date End Date Status Dicyclomine HCl 20 MG 1 tablet Orally 2- 4 times a day 05/08/2024 Active Encounters Encounter Location Date Provider Diagnosis [facility] [address] [place] [address] 05/07/2024 José Luis Mckoy Jr Plan Of Treatment Medication Medication Name Sig Start Date Stop Date Notes Dicyclomine HCl 20 MG 1 tablet Orally 2-4 times a day 04/20 Progress Notes * LOPEZ CHRISTOPHERDOB: 2 (63 yo F)Acc No.[id number]:05/07/2024 Patient:?LOPEZ CHRISTOPHER :1960???Age:63 Y???Sex:Female Address:[address] [address] * Refills? Start Dicyclomine HCl Tablet, 20 MG, Orally, 120, 1 tablet, 2-4 times a day, Refills=6 * true * Date:? Generated for Printi vviian/Faeling/eTransmitting on:?07/10/2024 06:08 AM EDT
--- OUTSIDE RECORDS SUMMARY | 2024-07-10 06:08 | XMS_ITS | Patient Health Record ---
Author Organization [facility] Address [address] [place] [address] Care Team Providers Care Foxing Closer Name Role Phone Samira Sommer MD Primary Care Provider José Luis Quarles Jr Unavailable [phone] Allergies No Known Allergies Reason For Referral [...] Problem Status W/U Status Risk Notes Problem 89922331 Rectal bleeding (K62.5) Active confirmed Problem 006272286 Irritable bowel syndrome with diarrhea (K58.0) Active confirmed Problem 081468350 Gastroesophageal reflux disease without esophagitis (K21.9) Active confirmed Problem 593443855 Abnormal magneti c resonance imaging of liver (R93.2) Active confirmed Vital Signs Temperature 97.1 degrees Fahrenheit 10/10/2023 Blood pressure diastolic 00 mm Hg 10/10/2023 Height 56 in 10/10/2023 Blood pressure systolic 000 mm Hg 10/10/2023 Weight 125 lbs 10/10/2023 BMI 28.02 kg/m2 10/10/2023 Encounters Encounter Location Date Provider Diagnosis [facility] [address] [place] [address] 10/10/2023 José Luis Mckoy Jr Irritable bowel syndrome with diarrhea K58.0 and Gastroesophageal reflux disease without esophagitis K21.9 [facility] [address] [place] [address] 05/07/2024 José Luis Mckoy Jr Assessments Encounter [...] BLOOD X2 03/16/2014 MRI ABD W&WO CONTRAST 08/05/2014 MRI ABD W&WO CONTRAST 03/16/2014 Future Test Test Name Order Date UPPER GI ENDOSCOPY 12/25/2013 ERCP REMOVAL OF STONES 12/25/2013 UPPER GI ENDOSCOPY 12/30/2015 COLONOSCOPY 12/30/2015 Insurance Providers Payer Name Payer Address Payer Phone Subscriber Number Group Number Insured Name Patient Relationship to Insured Coverage Start Date Coverage End Date [facility] [address] [address] [place], [place] [id number] [phone] [id number] LOPEZ CHRISTOPHER Self - patient is the insured [facility]ICAID OF [facility] [address] [place] [address] [id number] LOPEZ CHRISTOPHER Self - patient is the [...]
[2024-07-10 06:21] LABS: MANUAL DIFF FLAG NO
[2024-07-10 07:25] LABS: Estimated Average Glucose 114 mg/dL; Hemoglobin A1C 120.2221 umol/L; Hemoglobin A1c % 5.6 % (<6.0); Total Hemoglobin (HGBA1C) 3180.1632 umol/L
[2024-07-10 07:27] LABS: Basophils Percent Auto 1.1 % (0-2); Eosinophils Absolute Auto 0.2 X10*3/uL (0.0-0.4); Eosinophils Percent Auto 5.8 % (0-4); Hematocrit 36.5 % (37.0-47.0); Hemoglobin 11.9 g/dl (12.0-16.0); Imm Gran Abs Auto 0.02 X10*3/uL (0.00-0.03); Imm Gran Pct Auto 0.6 % (0.0-0.4); Immature Retic Fraction 9.7 % (3.0-15.9); Lymphocytes Absolute Auto 1.1 X10*3/uL (1.2-4.9); Lymphocytes Percent Auto 30.7 % (20-40); Mean Corpuscular HGB Conc 32.6 g/dl (31.0-35.0); Mean Corpuscular Volume 88.8 fL (80.0-98.0); Monocytes Absolute Auto 0.5 X10*3/uL (0.1-1.2); Monocytes Percent Auto 14.1 % (2-11); Neutrophils Absolute Auto 1.7 x10*3/uL (2.0-8.3); Neutrophils Percent Auto 47.7 % (45-73); Platelet Count 217 X10*3/uL (160-400); Red Blood Count 4.11 X10*6/uL (4.20-5.50); Reticulocytes Absolute 0.042 X10*6/uL (0.026-0.095); White Blood Count 3.6 X10*3/uL (4.8-10.8)
[2024-07-10 07:38] LABS: Creatinine Urine 151.74 mg/dL; Microalbum/Creatinine Ratio Ur 3.2 ug/mg cr (<30)
[2024-07-10 07:46] LABS: Alanine Aminotransferase 17 U/L (0-31); Albumin Level 3.8 g/dL (3.5-5.0); Alkaline Phosphatase 91 U/L (39-117); Anion Gap 10 (12-20); Aspartate Amino Transferase 19 U/L (5-31); Bilirubin Total 0.4 mg/dL (0.0-1.0); Blood Urea Nitrogen 12 mg/dL (9-16); Calcium 9.2 mg/dL (8.4-10.2); Carbon Dioxide 26 mmol/L (22-29); Chloride 109 mmol/L (96-108); Cholesterol 171 mg/dL (<200); Estimated Glomerular Filt Rate > 60; Glucose Random 82 mg/dL (60-115); HDL Cholesterol 69 mg/dL (>40); Iron 53 mcg/dL (30-160); LDL Cholesterol Calculated 87 mg/dL (<100); Percent Iron Saturation 19 % (15-50); Sodium 141 mmol/L (135-145); Total Iron Binding Capacity 284 mcg/dL (228-428); Total Protein 7.5 g/dL (6.5-8.0); Triglycerides 78 mg/dL (<150); Unsaturated Iron Binding 231 ug/dL
[2024-07-10 08:09] LABS: Ferritin 118 ng/mL (10-250); Free T4 (Free Thyroxine) 1.01 ng/dL (0.71-1.85); Thyroid Stimulating Hormone 1.51 uIU/mL (0.32-4.0); Vitamin D 25-OH Total 35.3 ng/mL (>30)
[2024-07-10 08:23] LABS: Folate 8.4 ng/mL (> or = 4.0); Vitamin B12 335 pg/mL (200-900)
== END 2024-07-10 06:07 | disposition home or self-care (01) ==
LOC: HO.LAB 06:06
PROVIDERS: PCP Internal Medicine; Visit Provider Internal Medicine
DX: E11.65 Type 2 diabetes mellitus with hyperglycemia (principal); E78.00 Pure hypercholesterolemia, unspecified
CPT/HCPCS: 36415; 80053; 80061; 82043; 82306; 82570; 82607; 82728; 82746; 83036; 83540; 84439; 84443; 85025; 85045

== ENCOUNTER 2024-08-22 11:18 | Outpatient (REF) | payer OTHER, SELFPAY ==
--- OUTSIDE RECORDS SUMMARY | 2024-08-22 12:06 | XMS_ITS ---
Author Organization [facility] Address [address] [place] [address] Care Team Providers Care Director Of Casework Department Name Role Phone Samira Sommer MD Primary Care Provider Sánchez Mckoy Jr, José Luis Infante [phone] REASON FOR VISIT ibs symptoms/asking if dicyclomine can be prescribed again Medications Medication SIG (Take, Route, Fr equency, Duration) Notes Start Date End Date Status Dicyclomine HCl 20 MG 1 tablet Orally 2- 4 times a day 05/08/2024 Active Encounters Encounter Location Date Provider Diagnosis [facility] [address] [place] [address] 05/07/2024 José Luis Mckoy Jr Plan Of Treatment Medication Medication Name Sig Start Date Stop Date Notes Dicyclomine HCl 20 MG 1 tablet Orally 2-4 times a day 04/20 Progress Notes * LOPEZ CHRISTOPHERDOB: 2 (63 yo F)Acc No.[id number]:05/07/2024 Patient:?LOPEZ CHRISTOPHER :1960???Age:63 Y???Sex:Female Address[address] [address] * Refills? Start Dicyclomine HCl Tablet, 20 MG, Orally, 120, 1 tablet, 2-4 times a day, Refills=6 * true * Date:? Generated for Printi vivian/Faeling/eTransmitting on:?08/22/2024 12:06 PM EDT
== END 2024-08-22 11:19 | disposition home or self-care (01) ==
LOC: HO.MAMMO 11:18
PROVIDERS: PCP Internal Medicine; Visit Provider Internal Medicine
DX: Z12.31 Encounter for screening mammogram for malignant neoplasm of breast (principal)
CPT/HCPCS: 77063; 77067

== ENCOUNTER → 2024-08-22 11:30 | Outpatient (BNV) | payer OTHER, SELFPAY | PROVIDERS: PCP Internal Medicine; Visit Provider Internal Medicine | DX: Z12.31 Encounter for screening mammogram for malignant neoplasm of breast (principal) | CPT/HCPCS: 77063; 77067 ==

== ENCOUNTER 2024-09-01 14:12 | Outpatient (AMB) | payer OTHER, SELFPAY ==
[2024-09-01 14:19] VITALS: BP 120/68; PULSE 74; O2SAT 99; BMI 28.9
--- NOTE | 2024-09-01 14:19 | A.OFFPC_ITS ---
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 Accompanied by: Self / Same As Patient Allergies No Known Allergies [No Known Allergies*] Allergy (Verified 09/01/24 14:20) Medication List - Last Reconciled 09/01/24 by Samira Sommer MD aspirin 81 mg PO DAILY betamethasone dipropionate 0.05% 1 appl topical BID PRN [Dandy-600 With Vitamin D 500 mg PO DAILY] cholestyramine-aspartame 4 gram 4 grams orally 2 times a day; administer w/meal; avoid other meds within 1hr before or 4-6hr after dose dicyclomine 20 mg PO QID ferrous sulfate 325 mg PO DAILY lenalidomide (Revlimid) 10 mg PO DAILY lisinopril 5 mg PO DAILY Tobacco use date assessed: 09/01/24 Dental Screening Dental Screen Date: 09/01/24 Did you have a dental visit in the last 12 months?: Yes Did you have a dental problem in the last 6 months where you did not have access to dental care?: No Was dental information given to patient?: Patient has dentist [facility], [facility] Medical History History of bone density study Rash Common bile duct stone T8 vertebral fracture History of rib fracture Anemia Type 2 diabetes mellitus with hyperglycemia Multiple myeloma Osteoporosis Irritable bowel syndrome Hypercholesterolemia Surgical History Hypertension History of ERCP History of surgery History of section History of cholecystectomy Family History Mother Anemia CVD (cardiovascular disease) Hypertension CHF (congestive heart failure) Sister Breast cancer Father Medical history unknown Maternal Grandmother Lung cancer Sister No problems noted. Social History Household Members: Children Housing: House Alcohol intake: never Patient Tobacco Use Status: Never used Tobacco e-Cigarette/Vaping Use: Never Used Second Hand Smoke Exposure: No service: No Current occupational status: employed Current occupational exposures/hazards: No Cognitive needs: No Hearing needs: No Vision needs: Yes Questionnaire PHQ-9 Over the last 2 weeks, how often have you been bothered by any of the following problems? 1. Little interest or pleasure in doing things: not at all 2. Feeling down, depressed, or hopeless: not at all 3. Trouble falling or staying asleep, or sleeping too much: not at all 4. Feeling tired or having little energy: several days 5. Poor appetite or overeating: not at all 6. Feeling bad about yourself - or that you are a failure or have let yourself or your family down: not at all 7. Trouble concentrating on things, such as reading the newspaper or watching television: not at all 8. Moving or speaking so slowly that other people could have noticed. Or the opposite - being so fidgety or restless that you have been moving around a lot more than usual: not at all 9. Thoughts that you would be better off or of hurting yourself in some way: not at all Total score: 1 Source: Developed by Drs. Quinn Wilcox, Kandace Flanagan, Stefano Woods and colleagues, with an educational tory from [employer]. Thrive Questionnaire Date Thrive assessed: 09/01/24 I am a: Patient What is your living situation today?: I have a steady place to live Within the past 12 months, did the food you bought not last and you didn't have the money to get more?: Never true Within the past 12 months, did you worry whether your food would run out before you got money to buy more?: Never true Do you have trouble paying for medicines?: No Do you have trouble getting transportation to medical appointments?: No Do you have trouble paying your heating and electricity bill?: No Do you have trouble taking care of your child, family member or friend?: No Do you have trouble with day-to-day activities such as bathing, preparing meals, shopping, managing finances, etc.?: No Are you currently unemployed and looking for a job?: No Are you interested in more education?: No Please select the resources that you would like help with: None Currently or been in a relationship where the following occur: No concerns reported THRIVE Score: 0 AUDIT C Alcohol Use Questionnaire (AUDIT-C) 1. How often do you have a drink containing alcohol?: Never 3. How often do you have six or more drinks on one occasion?: Never Total Score: 0 ALAYNA-7 AMB Questionnaire ALAYNA-7 Date ALAYNA - 7 assessed: 09/01/24 Feeling nervous, anxious, or on edge: 0 = Not at all Not being able to stop or control worryin = Not at all Worrying too much about different things: 0 = Not at all Trouble relaxin = Not at all Being so restless that it is hard to sit still: 0 = Not at all Becoming easily annoyed or irritable: 0 = Not at all Feeling afraid as if something awful might happen: 0 = Not at all Total ALAYNA-7 score (0-4 normal; 5-9 mild; 10-14 moderate; 15-21 severe): 0 Source: Developed by Drs. Quinn Wilcox, Kandace Flanagan, Stefano Woods and colleagues, with an educational tory from [employer]. Physical exam (Primary Care) Vital Signs: Last Vital Signs Pulse 74 09/01/24 14:19 BP 120/68 09/01/24 14:19 Pulse Ox 99 09/01/24 14:19 Oxygen Delivery Method Room Air 09/01/24 14:19 BMI result Body Mass Index 28.9 Tobacco/Smoking Status: Tobacco use Status Tobacco use date assessed 09/01/24 09/01/24 14:26 Patient Tobacco Use Status Never used Tobacco 09/01/24 14:26 e-Cigarette/Vaping Use Never Used 09/01/24 14:26 PHQ-9: PHQ-9 Score PHQ-9: Total score 1 09/01/24 14:52 Thrive Assessment: Date of Thrive Assessment Date Thrive assessed 09/01/24 09/01/24 14:26 Currently or been in a relationship where the following occur: No concerns reported Const General: alert; No acute distress Eyes Conjunctivae: conjunctivae normal Resp Auscultation: clear to auscultation bilaterally Cardio Rate: regular rate Rhythm: regular rhythm GI Inspection: Yes normal to inspection Extrem General: Yes normal to inspection and No edema Coding Level of Care Code Est Pt Level 4 (98744) Complex EM visit Add On G2211 Diagnoses Type 2 diabetes mellitus with hyperglycemia, without long-term current use of insulin E11.65 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: without senior living use Essential hypertension I10 Hypertension type: essential hypertension Hypercholesterolemia E78.00 Multiple myeloma in remission C90.01 Multiple myeloma remission status: in remission Superficial thrombophlebitis I80.9 Vaginal irritation N89.8 Assessment & Plan Assessment & Plan (1) Type 2 diabetes mellitus with hyperglycemia: Comment: Eye and lasik Code(s): E11.65 - Type 2 diabetes mellitus with hyperglycemia Category: Medical Qualifiers: Diabetes mellitus senior living insulin use: without senior living use Qualified Code(s): E11.65 - Type 2 diabetes mellitus with hyperglycemia Plan: Decrease the amount of carbohydrate intake, pasta, bread, rice and potatoes are all sugar and that is aside from all the sweet stuff, remember that fruits are good but they are Sweet also. Hemoglobin A1c goal of less than 6.5. Patient is under control with diet (2) Hypertension: Code(s): I10 - Essential (primary) hypertension Category: Surgical Qualifiers: Hypertension type: essential hypertension Qualified Code(s): I10 - Essential (primary) hypertension Plan: Continue with blood pressure medication. Decrease salt intake and exercise on lisinopril 5 mg once a day (3) Hypercholesterolemia: Code(s): E78.00 - Pure hypercholesterolemia, unspecified Category: Medical Plan: Avoid fried foods, chicken skin, eggs, butter margarine, pastries and meat. Be it pork or beef they have a lot of cholesterol LDL goal of less than 100 and triglyceride of less than 150 patient is diet controlled (4) Multiple myeloma: Code(s): C90.00 - Multiple myeloma not having achieved remission Category: Medical Qualifiers: Multiple myeloma remission status: in remission Qualified Code(s): C90. 01 - Multiple myeloma in remission Plan: Continue to follow-up with Hematology-Oncology. On remission on Revlimid (5) Superficial thrombophlebitis: Code(s): I80.9 - Phlebitis and thrombophlebitis of unspecified site Category: Medical (6) Vaginal irritation: Code(s): N89.8 - Other specified noninflammatory disorders of vagina Category: Medical Plan History of Present Illness The patient is a 63-year-old female presenting for a follow-up visit and management of multiple chronic conditions. The patient has a history of controlled diabetes mellitus, with a hemoglobin A1c of 5.6, indicating good glycemic control. She manages her diabetes primarily through diet, with a goal to maintain her hemoglobin A1c below 6.5. The patient has multiple myeloma and is currently in remission, following up with hematology oncology regularly. She was previously on Denosumab, which has been discontinued. The patient has hypertension, managed with Lisinopril 5 mg daily. Her blood pressure is stable under this regimen. The patient has hypercholesterolemia, with an LDL cholesterol level of 87, which is below the target of 100. She manages her cholesterol levels through diet. The patient has osteoporosis, with the last bone density test conducted in September 2023. The patient has anemia with a hemoglobin level of 11.9 and mild leukopenia, both of which have been stable. Her electrolytes and renal function are within normal limits. The patient reports a tendon cyst on her hand, which occasionally causes discomfort but does not restrict movement. The patient also reports a superficial vein thrombosis in her leg, which is tender but not concerning for deep vein thrombosis. The patient suspects bacterial vaginosis due to a slight odor, though there is no discharge. She has previously self-treated similar symptoms successfully. Health Maintenance - Mammogram is up to date - Last colonoscopy was performed on February 01 Social History Review of Systems - General: Reports weight gain - Musculoskeletal: Reports tendon cyst on hand, denies restriction of movement - Vascular: Reports superficial vein thrombosis in leg, tender but not concerning for deep vein thrombosis - Genitourinary: Reports slight odor, denies discharge Physical Exam Results - Labs: Hemoglobin A1c 5.6, LDL cholesterol 87, hemoglobin 11.9, mild leukopenia, electrolytes and renal function normal Plan The patient will continue to manage diabetes mellitus through diet, aiming to maintain a hemoglobin A1c below 6.5. Hypertension will be managed with Lisinopril 5 mg daily, and the patient will continue dietary management for hypercholesterolemia, with an LDL goal of less than 100. The patient will follow up with hematology oncology for multiple myeloma, which is currently in remission. For osteoporosis, the patient will monitor bone health, with the last bone density test conducted in September 2023. The patient will use heating pads for the superficial vein thrombosis in the leg and monitor for any changes. For the tendon cyst on the hand, no intervention is needed unless it restricts movement. The patient suspects bacterial vaginosis and will be provided with an antibiotic treatment of metronidazole for seven days. Patient was informed and verbally consented to the use of an ambient scribe for clinic note documentation during this visit. Discussion Notes I discussed with the patient the management of her diabetes, emphasizing the importance of maintaining a hemoglobin A1c below 6.5 through diet. We reviewed her hypertension management with Lisinopril and dietary measures for hypercholesterolemia. I advised her to continue follow-ups with hematology oncology for her multiple myeloma, which is in remission. We discussed the use of heating pads for her superficial vein thrombosis and monitoring the tendon cyst on her hand. I provided information on bacterial vaginosis and prescribed metronidazole for treatment. Patient Instructions - Continue managing diabetes with diet to keep hemoglobin A1c below 6.5. - Take Lisinopril 5 mg daily for hypertension. - Follow dietary recommendations to maintain LDL cholesterol below 100. - Use heating pads for leg discomfort from superficial vein thrombosis. - Monitor tendon cyst on hand for any changes in movement. - Take metronidazole as prescribed for bacterial vaginosis. Orders: Orders Bacterial Vaginosis Panel Today N89.8 - Other specified noninflammatory disorders of vagina Medications: New metronidazole 500 mg PO BID 14 tabs 0RF N89.8 - Other specified noninflammatory disorders of vagina Changed From cholestyramine-aspartame 4 gram (Prevalite) administer w/meal; avoid other meds within 1hr before or 4-6hr after dose 4 grams PO BID 180 packets 3RF diarrhea To cholestyramine-aspartame 4 gram 4 grams orally 2 times a day; administer w/meal; avoid other meds within 1hr before or 4-6hr after dose 90 packets 3RF diarrhea
== END 2024-09-01 15:10 | disposition home or self-care (01) ==
LOC: HO.HMCH 14:13
PROVIDERS: PCP Internal Medicine; Visit Provider Internal Medicine
DX: E11.65 Type 2 diabetes mellitus with hyperglycemia (principal); I10 Essential (primary) hypertension; E78.00 Pure hypercholesterolemia, unspecified; C90.01 Multiple myeloma in remission; I80.9 Phlebitis and thrombophlebitis of unspecified site; N89.8 Other specified noninflammatory disorders of vagina

== ENCOUNTER → 2024-09-01 14:12 | Outpatient (BNVA) | payer OTHER, SELFPAY | PROVIDERS: PCP Internal Medicine; Visit Provider Internal Medicine | DX: E11.65 Type 2 diabetes mellitus with hyperglycemia (principal); I10 Essential (primary) hypertension; E78.00 Pure hypercholesterolemia, unspecified; C90.01 Multiple myeloma in remission; I80.02 Phlebitis and thrombophlebitis of superficial vessels of left lower extremity; N89.8 Other specified noninflammatory disorders of vagina; M81.0 Age-related osteoporosis without current pathological fracture | CPT/HCPCS: 99212 ==

== ENCOUNTER 2025-01-07 09:36 | Outpatient (AMB) | payer OTHER, SELFPAY ==
--- NOTE | 2025-01-07 09:37 | A.OFFPC_ITS ---
Vital Signs 01/07/25 09:53 Height 4 ft 8 in Weight 130 lb 2 oz BMI 29.2 BP 136/78 Blood Pressure Location Lt brachial Position Sitting Pulse 85 Pulse Source Pulse Oximeter Temp 97.1 F Temp Source Temporal Artery Scan Pulse Oximetry (%) 97 Oxygen Delivery Method Room Air Intake Visit Reasons: PE Rescheduled Allergies No Known Allergies (No Known Allergies*) Allergy (Verified 01/07/25 09:38) Medication List - Last Reconciled 01/07/25 by Samira Sommer MD aspirin 81 mg PO DAILY betamethasone dipropionate 0.05% 1 appl topical BID PRN [Dandy-600 With Vitamin D 500 mg PO DAILY] cholestyramine-aspartame 4 gram 4 grams orally 2 times a day; administer w/meal; avoid other meds within 1hr before or 4-6hr after dose dicyclomine 20 mg PO QID ferrous sulfate 325 mg PO DAILY lenalidomide 10 mg PO DAILY lisinopril 5 mg PO DAILY Tobacco use date assessed: 09/01/24 Dental Screening Dental Screen Date: 09/01/24 [facility] Medical History History of bone density study Rash Common bile duct stone T8 vertebral fracture History of rib fracture Anemia Type 2 diabetes mellitus with hyperglycemia Multiple myeloma Osteoporosis Irritable bowel syndrome Hypercholesterolemia Surgical History Hypertension History of ERCP History of surgery History of section History of cholecystectomy Family History Mother Anemia CVD (cardiovascular disease) Hypertension CHF (congestive heart failure) Sister Breast cancer Father Medical history unknown Maternal Grandmother Lung cancer Sister No problems noted. Social History Household Members: Children Housing: House Alcohol intake: never Patient Tobacco Use Status: Never used Tobacco Tobacco use type: Cigarette e-Cigarette/Vaping Use: Never Used Second Hand Smoke Exposure: No service: No Current occupational status: employed Current occupational exposures/hazards: No Cognitive needs: No Hearing needs: No Vision needs: Yes Questionnaire PHQ-9 Over the last 2 weeks, how often have you been bothered by any of the following problems? 1. Little interest or pleasure in doing things: not at all 2. Feeling down, depressed, or hopeless: not at all 3. Trouble falling or staying asleep, or sleeping too much: not at all 4. Feeling tired or having little energy: several days 5. Poor appetite or overeating: not at all 6. Feeling bad about yourself - or that you are a failure or have let yourself or your family down: not at all 7. Trouble concentrating on things, such as reading the newspaper or watching television: not at all 8. Moving or speaking so slowly that other people could have noticed. Or the opposite - being so fidgety or restless that you have been moving around a lot more than usual: not at all 9. Thoughts that you would be better off or of hurting yourself in some way: not at all Total score: 1 Depression Screening Interpretation: Positive Depression Screening Done: Yes Source: Developed by Drs. Quinn Wilcox, Kandace Flanagan, Stefano Woods and colleagues, with an educational tory from [employer]. Thrive Questionnaire Date Thrive assessed: 09/01/24 I am a: Patient What is your living situation today?: I have a steady place to live Within the past 12 months, did the food you bought not last and you didn't have the money to get more?: Never true Within the past 12 months, did you worry whether your food would run out before you got money to buy more?: Never true Do you have trouble paying for medicines?: No Do you have trouble getting transportation to medical appointments?: No Do you have trouble paying your heating and electricity bill?: No Do you have trouble taking care of your child, family member or friend?: No Do you have trouble with day-to-day activities such as bathing, preparing meals, shopping, managing finances, etc.?: No Are you currently unemployed and looking for a job?: No Are you interested in more education?: No Please select the resources that you would like help with: None Currently or been in a relationship where the following occur: No concerns reported THRIVE Score: 0 AUDIT C Alcohol Use Questionnaire (AUDIT-C) 1. How often do you have a drink containing alcohol?: Never 2. How many drinks containing alcohol do you have on a typical day when you are drinking?: 1 or 2 3. How often do you have six or more drinks on one occasion?: Never Total Score: 0 ALAYNA-7 AMB Questionnaire ALAYNA-7 Date ALAYNA - 7 assessed: 09/01/24 Source: Developed by Drs. Quinn Wilcox, Kandace Flanagan, Stefano Woods and colleagues, with an educational tory from [employer]. Review of Systems Const Denies poor appetite and Denies weakness Eyes Denies no additional complaints ENT Reports Normal hearing present, Denies dizziness, Denies nasal congestion, Denies tinnitus and Denies sore throat Card Denies chest pain, Denies syncope, Denies rapid heart rate and Denies dyspnea Resp Denies cough and Denies dyspnea GI Denies change in stool character, Reports constipation, Denies diarrhea, Denies nausea and Denies vomiting Denies urinary frequency, Denies difficulty voiding and Denies dysuria Neuro Reports Normal hearing present, Denies confusion, Denies dizziness, Denies syncope and Denies weakness Psych Denies confusion Physical exam (Primary Care) Vital Signs: Last Vital Signs Temp 97.1 F 01/07/25 09:53 Pulse 85 01/07/25 09:53 BP 136/78 01/07/25 09:53 Pulse Ox 97 01/07/25 09:53 Oxygen Delivery Method Room Air 01/07/25 09:53 BMI result Body Mass Index 29.2 Tobacco/Smoking Status: Tobacco use Status Tobacco use date assessed 09/01/24 01/07/25 09:39 Patient Tobacco Use Status Never used Tobacco 01/07/25 09:39 Tobacco use type Cigarette 01/07/25 09:39 e-Cigarette/Vaping Use Never Used 01/07/25 09:39 PHQ-9: PHQ-9 Score PHQ-9: Total score 1 01/07/25 10:04 Depression Screening Interpretation: Positive Thrive Assessment: Date of Thrive Assessment Date Thrive assessed 09/01/24 01/07/25 09:39 Currently or been in a relationship where the following occur: No concerns reported Const General: alert and awake; No confusion Orientation/consciousness: No confusion HENMT Head: Yes normocephalic Ears: external ears normal and TM's normal bilaterally Face and sinus: Yes normal facial exam Mouth: moist mucous membranes Throat: Yes tonsils normal Eyes Conjunctivae: conjunctivae normal Pupils: Equal, round and reactive pupils present and Pupil accommodation reflex normal Direct Ophthalmoscopy: normal light reflex Neck Neck: No lymphadenopathy Thyroid: Thyroid normal Chest Chest palpation & inspection: normal inspection of the chest Resp Effort & Inspection: normal respiratory effort and no audible wheezes Auscultation: clear to auscultation bilaterally, no crackles, no wheezes and lung sounds not diminished Cardio Rate: regular rate Rhythm: regular rhythm Peripheral pulses: radial pulses present and dorsalis pedis present GI Palpation (GI): no masses Auscultation: normal bowel sounds and normoactive bowel sounds Rectal Exam - Female: deferred Skin General skin exam: no rashes or lesions noted Rashes: no rashes Neuro General: deep tendon reflexes 2+ bilaterally and No confusion Cranial nerves: Yes Equal, round and reactive pupils present, Yes Midline tongue present, Yes Normal hearing present and Yes Ability to bilaterally elevate shoulders present Cognition (Neuro): normal cognition Gait exam (Neuro): Normal gait present Motor exam (neuro): 5/5 motor strength present throughout Deep tendon reflexes (DTR's): Right brachioradialis reflex intensity grade: 2+, Left brachioradialis reflex intensity grade: 2+, Right patellar reflex intensity grade: 2+ and Left patellar reflex intensity grade: 2+ Extrem General: No edema Results AMB Hemoglobin A1c AMB Hemoglobin A1c 5.6 % Last Edit by Paulina Gonzales CMA on 01/07/25 10 :04 Results Reviewed Results Reviewed: Laboratory Last Values Hgb A1c (Clinic) 5.6 % (4.0-6.0) 01/07/25 09:39 Coding Level of Care Code Est Pt Prev Care 40-64y(48761) Diagnoses Annual physical exam Z00.00 Type 2 diabetes mellitus with hyperglycemia, without long-term current use of insulin E11.65 Diabetes mellitus fdc insulin use: without ocean transportation intermediary use Essential hypertension I10 Hypertension type: essential hypertension Hypercholesterolemia E78.00 Other osteoporosis without current pathological fracture M81.8 Osteoporosis type: other Presence of current pathological fracture: without current pathological fracture Multiple myeloma in remission C90.01 Multiple myeloma remission status: in remission Assessment & Plan Assessment & Plan (1) Annual physical exam: Code(s): Z00.00 - Encounter for general adult medical examination without abnormal findings Category: Medical Plan: Patient is advised to eat healthy, keep well hydrated, keep active and have adequate sleep. (2) Type 2 diabetes mellitus with hyperglycemia: Comment: Eye and lasik Code(s): E11.65 - Type 2 diabetes mellitus with hyperglycemia Category: Medical Qualifiers: Diabetes mellitus fdc insulin use: without ocean transportation intermediary use Qualified Code(s): E11.65 - Type 2 diabetes mellitus with hyperglycemia Plan: Decrease the amount of carbohydrate intake, pasta, bread, rice and potatoes are all sugar and that is aside from all the sweet stuff, remember that fruits are good but they are Sweet also. Hemoglobin A1c goal of less than 6.5. Patient is up-to-date with Ophthalmology diet controlled (3) Hypertension: Code(s): I10 - Essential (primary) hypertension Category: Surgical Qualifiers: Hypertension type: essential hypertension Qualified Code(s): I10 - Essential (primary) hypertension Plan: Continue with blood pressure medication. Decrease salt intake and exercise on lisinopril 5 mg once a day (4) Hypercholesterolemia: Code(s): E78.00 - Pure hypercholesterolemia, unspecified Category: Medical Plan: Avoid fried foods, chicken skin, eggs, butter margarine, pastries and meat. Be it pork or beef they have a lot of cholesterol this is diet controlled LDL goal of less than 100 (5) Osteoporosis: Comment: Bone density August2023 Code(s): M81.0 - Age-related osteoporosis without current pathological fracture Category: Medical Qualifiers: Osteoporosis type: other Presence of current pathological fracture: without current pathological fracture Qualified Code(s): M81.8 - Other osteoporosis without current pathological fracture Plan: Patient is being followed up by hematology oncology has had denosumab. (6) Multiple myeloma: Code(s): C90.00 - Multiple myeloma not having achieved remission Category: Medical Qualifiers: Multiple myeloma remission status: in remission Qualified Code(s): C90.01 - Multiple myeloma in remission Plan: On remission continuing with lenalidomide Plan History of Present Illness The patient is a 64-year-old female presenting for a follow-up visit and physical examination. The patient has a history of diabetes mellitus, which is currently diet- controlled with a hemoglobin A1c goal of less than 6.5%. Her blood sugar was recorded at 87, indicating good control. Hypertension is managed with lisinopril 5 mg once daily, primarily for renal protection. The patient's blood pressure is generally well-controlled, although it was elevated the previous day. The patient has hypercholesterolemia, which is diet-controlled with an LDL goal of less than 100 mg/dL. Her last cholesterol test in June 2024 showed an LDL of 87 mg/dL. The patient is in remission from multiple myeloma and is currently receiving lenalidomide and aspirin as part of her treatment regimen. She follows up with hematology oncology and was last seen in December 2020. Osteoporosis is being monitored with bone density tests, the last of which showed no change from previous results. The patient was previously on denosumab, which has been discontinued. The patient experiences migraines and reports no new diagnoses or surgeries since the last visit. The patient has a history of mild anemia, with recent blood work showing hemoglobin at 11.6 g/dL and hematocrit at 35.8%. She reports feeling cold frequently, which may be related to her anemia. The patient has eczema and requires a refill of her eczema cream. Health Maintenance - Colonoscopy is due next year, as the last one was in 2015. - Mammogram is up to date, last done in September 2024. - Pneumonia vaccination is current. - Blood sugar and cholesterol levels are well-controlled with diet. 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 - Family history: Mother had heart problems, sister had breast cancer, grandmother had lung cancer. - Lifestyle: Diet-controlled diabetes and cholesterol, avoids eating after 6 PM. Review of Systems - General: Denies new diagnoses or surgeries since last visit. - Cardiovascular: Denies chest pain, orthopnea, or syncope. - Respiratory: Denies dyspnea or cough. - Gastrointestinal: Reports frequent stomach noises without pain, denies nausea, vomiting, or changes in bowel habits. - Neurological: Reports migraines, denies dizziness or balance issues. - Dermatological: Reports eczema, requires cream refill. - Hematological: Reports feeling cold frequently, related to anemia. Physical Exam General: Cooperative, healthy appearing, comfortable, no acute distress and well developed Orientation: Patient oriented x3 Limitations: No limitations Head: Normal to inspection Ears: Hearing grossly normal bilaterally, but patient reports some difficulty hearing, possibly age-related Nose: Normal external nose present Face and sinus: Normal facial exam Eyes: Appearance normal, both eyes and all related structures; patient reports floaters and potential cataracts Neck: Normal visual inspection and Yes full ROM Respiratory: Normal respiratory effort and able to speak in complete sentences. Clear to auscultation bilaterally Cardiovascular: Regular rate and rhythm. Normal S1 and S2 GI: Normal to inspection. Soft to palpation and nontender; patient reports noisy stomach but no pain Skin: No rashes or lesions noted; patient requests eczema cream refill Neuro: Patient oriented x3 Extremities: Normal to inspection; patient reports mild anemia with a history of cold intolerance Results - Labs: Hemoglobin 11.6 g/dL, Hematocrit 35.8%, White blood cells 3.9, LDL 87 mg/dL, Blood sugar 87 mg/dL. - Tests: Bone density test showed no change from previous results. Plan Patient was informed and verbally consented to the use of an ambient scribe for clinic note documentation during this visit. 1. Diabetes Mellitus The patient's diabetes mellitus is currently managed through diet control, with a hemoglobin A1c goal of less than 6.5%. Her blood sugar level was 87 mg/dL, indicating effective management. 2. Hypertension Hypertension is managed with lisinopril 5 mg daily, primarily for renal protection. The patient's blood pressure is generally well-controlled, although it was elevated the previous day. 3. Hypercholesterolemia Hypercholesterolemia is managed through diet, with an LDL goal of less than 100 mg/dL. The last cholesterol test showed an LDL of 87 mg/dL, indicating good control. 4. Multiple Myeloma The patient is in remission from multiple myeloma and is currently on lenalidomide and aspirin. She continues to follow up with hematology oncology. 5. Osteoporosis Osteoporosis is monitored with bone density tests, with no recent changes noted. Denosumab was previously used but has been discontinued. 6. Migraine The patient experiences migraines but reports no new diagnoses or surgeries since the last visit. 7. Anemia The patient has mild anemia with a hemoglobin level of 11.6 g/dL and hematocrit of 35.8%. She reports feeling cold frequently, which may be related to her anemia. 8. Preventative Care The patient is up to date with her mammogram, and her next colonoscopy is due next year. She has received her pneumonia vaccination. Discussion Notes During the visit, we discussed the management of the patient's diabetes, hypertension, and hypercholesterolemia, emphasizing the importance of diet control and medication adherence. We also reviewed her current status of multiple myeloma remission and the discontinuation of denosumab for osteoporosi s. Preventative care measures, including the need for a colonoscopy next year and the status of her mammogram and pneumonia vaccination, were also addressed. Patient Instructions - Continue diet control for diabetes and cholesterol management. - Take lisinopril 5 mg daily as prescribed. - Follow up with hematology oncology as scheduled. - Schedule a colonoscopy for next year. - Refill eczema cream as needed. Orders: Orders AMB Hemoglobin A1c Today Z13.9 - Encounter for screening, unspecified Medications: Refilled cholestyramine-aspartame 4 gram 4 grams orally 2 times a day; administer w/meal; avoid other meds within 1hr before or 4-6hr after dose 90 packets 3RF diarrhea betamethasone dipropionate 0.05% 1 appl topical BID PRN 45 grams 0RF skin irritation L30.9 - Dermatitis, unspecified
[2025-01-07 09:53] VITALS: BP 136/78; PULSE 85; TEMP 36.2; O2SAT 97; BMI 29.2
--- OUTSIDE RECORDS SUMMARY | 2025-01-07 11:05 | XMS_ITS | Encounter Summary ---
Author Organization [facility] Address [address] [place] [address] [place] [address] Phone Care Team Providers Care Flexographic Printing Press Operator Name Role Phone Ary Delarosa MD Unavailable [phone] Ivelisse Martinez Unavailable [phone] PoSamira MD Primary Care Provider [phone] Encounter Details Date Type Department Care Team (Late st Contact Info) Description 08/17/2015 Telephone [facility] Angio Interventional Radiology [address] [place] [id number] Justina Nice RN Social History Tobacco Use Types Packs/Day Years Used Date Smoking Tobacco: Never Assessed Comments Unknown Sex and Gender Information Value Date Recorded Sex Assigned at Female 01/30/2024 9:23 AM EST Legal Sex Female 12:41 PM EST Gender Identity Female 01/30/2024 9:23 AM EST Sexual Orientation Don't know 01/30/2024 10 :53 AM EST documented as of this encounter Plan of Treatment Upcoming Encounters Date Type Department Care Team (Late st Contact Info) Description 03/24/2025 10:00 AM EST Blood Draw Laboratory Services, [facility] [address] [place] [address], [address] [place] [address] Jomar Boyd MD [address] [place] [id number] [email or web address] 03/24/2025 11:00 AM EST Office Visit [facility], Division of Hematologic Oncology, [facility] [address] [place] [address], [address] [place] [address] Jomar Boyd MD [address] [place] [phone] [email or web address] documented as of this encounter Visit Diagnoses Not on filedocumented in this encounter Additional Health Concerns Infection Onset Date Last Indicated Resolved Time CoV-Risk 06/06/2024 06/06/2024 06/17/2024 1:23 AM EDT documented as of this encounter Care Teams Flexographic Printing Press Operator Relationship Specialty Start Date End Date Samira Sommer MD [address] [place] [phone] PCP - General Internal Medicine 04/08/15 Ary Delarosa MD [address] [place] [phone] [email or web address] Referring Physician Internal Medicine 06/03/15 Ivelisse Martinez, [facility] [address] [place] [address] [email or web address] Apprentice Oncology 06/30/15 documented as of this encounter Additional Source Comments The information contained in this document represents components of the legal health record. It is not the complete legal health record.[facility]
--- OUTSIDE RECORDS SUMMARY | 2025-01-07 11:05 | XMS_ITS | Patient Health Record ---
Author Organization [facility] Address [address] [place] [address] Care Team Providers Care Pit Tanner Name Role Phone Po Samira ALFORD Primary Care Provider José Luis Quarles Jr Unavailable Allergies No Known Allergies Reason For Referral No Information Medications Medication SIG (Take, Route, Frequency, Duration) Notes Start Date End Date Status Aspirin 325 MG 1 tablet Orally Once a day Active Calcium + D 500-1000-40 MG-UNT-MCG as directed Orally Active Revlimid 10 MG 1 capsule Orally onc e daily for two weeks then off two weeks Active Dicyclomine HCl 20 MG TAKE 1 TABLET BY M OUT 2-4 TIMES A DAY; Duration: 90 Active iron 1 tab Oral Active Lisinopril 5 MG 1 tablet Orally Once a day; Duration: 30 day(s) Active Immunizations Vaccine Route Administration Date Status Comme nts Influenza Unknown 03/21/2018 Refused Influenza Unknown 07/30/2019 Refused Influenza Unknown 10/11/2022 Refused Social History Alcohol Screen Question Answer Notes Did you have a drink containing alcohol in the p ast year? No Points 0 Interpretation Negative Problems Problem Type SNOMED Code ICD Code Onset Dates Problem Status W/U Status Risk Notes Problem Rectal bleeding (73662950) Rectal bleeding (K62.5) Active confirmed Problem Irritable bowel syndrome with diarrhea (356848267) Irritable bowel syndrome with diarrhea (K58.0) Active confirmed Problem Gastroesophageal reflux disease without esophagitis (871332293) Gastroesophageal reflux disease without esophagitis (K21.9) Active confirmed Problem Abnormal findings diagnostic imaging of liver and biliary tract (661720979) Abnormal magnetic resonance imaging of liver (R93.2) Active confirmed Encounters Encounter Location Date Provider Diagnosis [facility] [address] [place] [address] 05/07/2024 José Luis Mckoy Jr Plan Of Treatment Pending Test Test Name [...] Insured Coverage Start Date Coverage End Date [facility] [address] [address] [place], [place] [id number] LOPEZ CHRISTOPHER Self - patient is the insured MEDICAID OF [employer] [address] [place] [address] [phone] [id number] LOPEZ CHRISTOPHER Self - patient is the [...]
--- OUTSIDE RECORDS SUMMARY | 2025-01-07 11:05 | XMS_ITS ---
Author Organization [facility] Address [address] [place] [address] Phone Care Team Providers Care Manager Medicare Name Role Phone Ary Delarosa MD Unavailable [phone] Ivelisse Martinez Unavailable [phone] Samira Sommer MD Primary Care Provider [phone] Active Problems Problem Noted Date Diagnosed Date Multiple myeloma 06/06/2015 Overview (11/26/2015): IMO update Current Treatment and Therapy Plans No current plan information found. Past Treatment and Therapy Plans Oncology Therapy Plan Plan Name Start Date Discontinue Date Treatment Medications Discontinue Reason Plan Provider FILGRASTIM (NEUPOGEN) 5 DAYS 08/24/2015 09/09/2024 No medications scheduled. a. Therapy Complete Raegan Aldana NP TREATMENT PLAN Plan Name Start Date Discontinue Date Treatment Medications Discontinue Reason Plan Provider Cycles PLERIXAFOR 08/23/2015 08/25/2024 No medications scheduled. a. Therapy Complete Silvia Valenzuela MD 1 of 1 cycle started
--- OUTSIDE RECORDS SUMMARY | 2025-01-07 11:05 | XMS_ITS | Clinical Summary ---
Author Organization [facility] Address [address] [place] [address] Phone Care Team Providers Care Hardboard Panel Printer Name Role Phone Ary Delarosa MD Unavailable [phone] Ivelisse Martinez Unavailable [phone] PoSamira MD Primary Care Provider [phone] Allergies No known active allergies Medications simvastatin (ZOCOR) 20 MG tablet Take 40 mg by mouth nightly. Active ferrous sulfate 324 mg (65 mg elemental) TbEC Take 324 mg by mouth daily with breakfast. Active dicyclomine (BENTYL) 20 mg tablet Take 20 mg by mouth every 6 (six) hours. Active aspirin 325 MG tablet Take 325 mg by mouth daily. Active calcium carbonate-vitami n D3 1,250 mg (500 mg elemental)-400 units per tablet Take 1 tablet by mouth daily. Active lenalidomide (REVLIMID) 10 mg capsule Take by mouth daily. Days 1 - 21 of each 28 day cycle Active Active Problems Problem Noted Date Diagnosed Date Multiple myeloma 06/06/2015 Overview (11/26/2015): IMO update Family History Medical History Relation Comments COPD Mother Dementia Mother Relation Status Comments Father Mother Alive Social History Tobacco Use Types Packs/Day Years Used Date Smoking Tobacco: Never Assessed Education Answer Date Recorded Are you interested in more education? Not on mandi e 07/14/2022 Are you concerned about learning? Not on file 07/14/2022 No 07/14/2022 No 07/14/2022 Digital Access Answer Date Recorded No 08/14/2022 No 08/14/2022 Reliable internet access at home? Not on file 08/14/2022 Device with a working camera? Not on file Intimate Partner Violence Answer Date R ecorded Are you denied basic needs s uch as food, clothing, or medical care? No 06/06/2024 In the past 12 months have y ou been in a relationship with a person who hurts, threatens, or tries to control you? No 06/06/2024 Are you denied basic needs s uch as food, clothing, or medical care? No 06/06/2024 In the past 12 months have y ou been in a relationship with a person who hurts, threatens, or tries to control you? No 06/06/2024 Comments Unknown Sex and Gender Information Value Date Recorded Sex Assigned at Female 01/30/2024 9:23 AM EST Legal Sex Female 12:41 PM EST Gender Identity Female 01/30/2024 9:23 AM EST Sexual Orientation Don't know 01/30/2024 10 :53 AM EST Last Filed Vital Signs Vital Sign Reading Time Taken Comments Blood Pressure 150/67 09/24/2024 11:47 AM EDT Pulse 86 09/24/2024 11:47 AM EDT Temperature 36.3 C (97.3 F) 09/24/2024 11:47 AM EDT Respiratory Rate 16 09/24/2024 11:4 7 AM EDT Oxygen Saturation 100% 09/24/2024 11: 47 AM EDT Inhaled Oxygen Concentration - - Weight 57.9 kg (127 lb 10.3 oz) 025 11:47 AM EDT Height 141.4 cm (4' 7.67 ) 09/24/2024 1 1:47 AM EDT Body Mass Index 28.96 09/24/2024 11:47 AM EDT Plan of Treatment Upcoming Encounters Date Type Department Care Team (Late st Contact Info) Description 03/24/2025 10:00 AM EST Blood Draw Laboratory Services, [facility] [address] [place] [address] Jomar Boyd MD [address] [place] [address] [email or web address] 03/24/2025 11:00 AM EST Office Visit [facility], Division [facility] H[facility], [facility] [address] [place] [address] Jomar Boyd MD [address] [place] [address] [email or web address] Health Maintenance Due Date Last Done Comments Adult Td,Tdap Booster 1961 LIPID PANEL 1961 DEPRESSION SCREENING 1973 SMOKING Hx and SMOKELESS TOBACCO SCREENING 1974 HEPATITIS C SCREENING 11/08/1979 HIV ONE-TIME SCREENING (18-6 5 YEARS) 11/08/1979 ZOSTER VACCINES (1 of 2) 1980 PAP SMEAR 1982 MAMMOGRAM 2001 COLOGUARD 2006 COLONOSCOPY 2006 COLORECTAL CANCER SCREENING 2006 FIT TEST 2006 FOBT 2006 SIGMOIDOSCOPY 2006 VIRTUAL COLONOSCOPY 2006 PNEUMOCOCCAL VACCINES (50+ years) (2 of 2 - PCV) 01/25/2018 01/25/2017 INFLUENZA VACCINE (#1) 2024 COVID-19 VACCINE (3 - 2024-2 6 season) 2024 04/15/2021, 06/17/2020 SCREENING FOR DIABETES 09/25/2027 , 08/25/2015, 08/24/2015 RSV VACCINE (1 - 1-dose 75+ series) 2036 HEPATITIS A VACCINES Aged Out No long er eligible based on patient's age to complete this topic HIB VACCINES Aged Out No longer eligi ble based on patient's age to complete this topic MENINGOCOCCAL VACCINES (ACWY) Aged Out No longer eligible based on patient's age to complete this topic MENINGOCOCCAL VACCINES (B) Aged Out N o longer eligible based on patient's age to complete this topic Medical Devices Not on file Procedures Procedure Name Priority Date/Time Associated Diagnosis Comments GLUCOSE Routine 08/25/2015 8:00 AM EDT from Last 3 Months or Most Recently Relevant to Health Maintenance Results * (ABNORMAL) Glucose (08/25/2015 8:00 AM EDT) GLUCOSE 126(H) 70 - 100 mg/dL [facility] 08/25/2015 8:00 AM EDT 08/25/2015 8:15 AM EDT Comment:#PRE PHERESIS Anna Fraire PA-C LAB BLOOD ORDERABLES Final Re sult Performing Organization Address City/State/[facility] Co de Phone Number [facility] [address] [place] [address] from Last 3 Months or Most Recently Relevant to Health Maintenance Insurance [facility] [place] [address] [place] [address] [place] [address] [place] [address] [place] [address] [place] [address] [place] [address] [place] [address] [place] [address] [place] [address] A[place] [facility] Advance Directives For more information, please contact: [phone] (9AM - 5PM [facility], Sunday-Sunday) Documents on File Type Date Recorded Patient Block Engraver Expl anation Healthcare Proxy 04/06/2015 1:36 PM * Full Code (Presumed) (Latest Code Status on File) Date Activated Date Inactivated Comments 08/23/2015 3:16 PM 08/24/2015 6:40 AM Care Teams Hardboard Panel Printer Relationship Specialty Start Date End Date Samira Sommer MD [address] [place] [id number] PCP - General Internal Medicine 04/08/15 Ary Delarosa MD [address] [place] [address] [email or web address] Referring Physician Internal Medicine 06/03/15 Ivelisse Martinez, [facility] [address] [place] [address] [email or web address] 06/30/15 Additional Source Comments The information contained in this document represents components of the legal health record. It is not the complete legal health record.[facility]
== END 2025-01-07 10:17 | disposition home or self-care (01) ==
LOC: HO.HMCH 09:36
PROVIDERS: PCP Internal Medicine; Visit Provider Internal Medicine
DX: Z00.00 Encounter for general adult medical examination without abnormal findings (principal); E11.65 Type 2 diabetes mellitus with hyperglycemia; C90.01 Multiple myeloma in remission; I10 Essential (primary) hypertension; E78.00 Pure hypercholesterolemia, unspecified; M81.8 Other osteoporosis without current pathological fracture

== ENCOUNTER → 2025-01-07 09:36 | Outpatient (BNVA) | payer OTHER, SELFPAY | PROVIDERS: PCP Internal Medicine; Visit Provider Internal Medicine | DX: Z00.00 Encounter for general adult medical examination without abnormal findings (principal); E11.65 Type 2 diabetes mellitus with hyperglycemia; I10 Essential (primary) hypertension; E78.00 Pure hypercholesterolemia, unspecified; M81.8 Other osteoporosis without current pathological fracture; C90.01 Multiple myeloma in remission; G43.909 Migraine, unspecified, not intractable, without status migrainosus; D64.9 Anemia, unspecified | CPT/HCPCS: 83036; 99396 ==